=== PATIENT | female | born 1950 | race Caucasian/White ===

== ENCOUNTER → 2017-12-17 10:34 | Outpatient (CLI) | payer MEDICARE, OTHER, SELFPAY ==
[2017-12-17 11:58] LABS: BUN Creatinine Ratio 24.4 (6-22); Blood Urea Nitrogen 22 mg/dL (7-17); Calcium 9.7 mg/dL (8.4-10.2); Carbon Dioxide 30 mmol/L (22-32); Chloride 101 mmol/L (98-107); Cholesterol 224 mg/dL (140-199); Estimated Glomerular Filt Rate > 60.0 mL/min (>60); Glucose 90 mg/dL (80-110); HDL Cholesterol 64 mg/dL (40-60); HEMOLYSIS < 15 (0-50); LDL Cholesterol Calculated 135 mg/dL (<100); Potassium 4.8 mmol/L (3.4-5.1); Sodium 139 mmol/L (137-145); Triglycerides 123 mg/dL (35-150)
== END ==
PROVIDERS: PCP Internal Medicine; Visit Provider Internal Medicine
DX: Z00.00 Encounter for general adult medical examination without abnormal findings (principal); I10 Essential (primary) hypertension
CPT/HCPCS: 36415; 80048; 80061

== ENCOUNTER → 2018-05-27 12:16 | Outpatient (CLI) | payer MEDICARE, OTHER, SELFPAY ==
--- NOTE | 2018-05-27 | DI.MG.S_ITS ---
BILATERAL DIGITAL SCREENING MAMMOGRAM 3D/2D WITH CAD: 05/27/2018 CLINICAL: Routine screening. Comparison is made to exams dated: 03/02/2017 mammogram, 06/14/2015 mammogram - [facility], and 04/30/2014 mammogram - [facility]. The tissue of both breasts is heterogeneously dense. This may lower the sensitivity of mammography. Current study was also evaluated with a Computer Aided Detection (CAD) system. No significant masses, calcifications, or other findings are seen in either breast. There has been no significant interval change. IMPRESSION: NEGATIVE There is no mammographic evidence of malignancy. A 1 year screening mammogram is recommended. This exam was interpreted at Station ID: [id number]. NOTE: For mammograms, a report in lay terms will be sent to the patient. Approximately 15% of breast malignancies will not be visualized mammographically. In the management of a palpable breast mass, a negative mammogram must not discourage biopsy of a clinically suspicious lesion. Electronically Signed By: Mc gunderson/diamond:05/27/2018 18:28:51 letter sent: Normal Exam ACR BI-RADS Category 1: Negative [id number]
== END ==
PROVIDERS: PCP Family Medicine; Visit Provider Family Medicine
DX: Z12.31 Encounter for screening mammogram for malignant neoplasm of breast (principal)
CPT/HCPCS: 77063; 77067

== ENCOUNTER → 2018-12-20 15:29 | Outpatient (CLI) | payer MEDICARE, OTHER, SELFPAY ==
[2018-12-20 16:17] LABS: Add Manual Diff / Slide Review NO; Basophils Absolute Auto 100 /uL (0-100); Basophils Percent Auto 1.3 % (0-2); Eosinophils Absolute Auto 100 /uL (0-450); Eosinophils Percent Auto 2.7 % (2-4); Hematocrit 39.3 % (36-46); Lymphocytes Absolute Auto 1800 /uL (1100-4500); Lymphocytes Percent Auto 35.1 % (25-40); Mean Corpuscular HGB Conc 33.1 % (30-36); Mean Corpuscular Hemoglobin 29.6 PG (26-34); Mean Corpuscular Volume 89.6 fL (80-100); Monocytes Absolute Auto 300 /uL (0-900); Monocytes Percent Auto 6.4 % (3-14); Neutrophils Absolute Auto 2800 /uL (1500-7000); Neutrophils Percent Auto 54.5 % (50-75); Platelet Count 213 X10^3/uL (150-400); Red Blood Cell Count 4.39 X10^6/uL (4.0-5.2); Red Cell Distribution Width 14.1 % (11.6-14.8); White Blood Cell Count 5.2 X10^3/uL (4.5-11.0)
[2018-12-20 16:32] LABS: Erythrocyte Sedimentation Rate 7 MM/HR (0-20)
[2018-12-20 16:33] LABS: Alanine Aminotransferase 24 IU/L (9-52); Albumin 4.7 g/dL (3.5-5.0); Albumin Globulin Ratio 1.6 (1.0-2.8); Alkaline Phosphatase 77 U/L (38-126); Aspartate Aminotransferase 27 IU/L (14-36); BUN Creatinine Ratio 22.2 (6-22); Bilirubin Total 0.7 mg/dL (0.2-1.3); Blood Urea Nitrogen 20 mg/dL (7-17); Carbon Dioxide 26 mmol/L (22-32); Chloride 104 mmol/L (98-107); Estimated Glomerular Filt Rate > 60.0 mL/min (>60); Globulin 2.9 g/dL (1.7-4.1); Glucose 96 mg/dL (80-110); HEMOLYSIS < 15 (0-50); Potassium 4.5 mmol/L (3.4-5.1); Sodium 141 mmol/L (137-145); Total Protein 7.6 g/dL (6.3-8.2); Uric Acid 3.7 mg/dL (2.5-6.2)
[2018-12-20 16:34] LABS: C-Reactive Protein Quant < 0.5 mg/dL (<1.0)
[2018-12-20 16:35] LABS: Rheumatoid Factor < 8.6 IU/mL (<12.0)
[2018-12-20 17:01] LABS: Thyroid Stimulating Hormone 3.08 uIU/mL (0.47-4.68)
[2018-12-22 14:40] LABS: Angiotensin Converting Enzyme 31 U/L (9-67)
[2018-12-22 19:17] LABS: ANA Screen, IFA Positive (Negative); ANA Titer 1:40 titer (<1:40)
[2018-12-23 11:52] LABS: HLA B27 NEGATIVE (Negative)
== END ==
PROVIDERS: Family Provider Family Medicine; PCP Family Medicine; Visit Provider Ophthalmology
DX: M35.00 Sjogren syndrome, unspecified (principal); M45.0 Ankylosing spondylitis of multiple sites in spine
CPT/HCPCS: 36415; 80053; 82164; 84443; 84550; 85025; 85651; 86038; 86140; 86235; 86430; 86812

== ENCOUNTER 2019-02-01 10:28 | Emergency (ER) | payer MEDICARE, OTHER, SELFPAY ==
[2019-02-01 10:30] VITALS: BP 161/71; PULSE 81; RESP 22; TEMP 37.3; O2SAT 100
--- NOTE | 2019-02-01 10:45 | DI.RAD.S_ITS ---
PROCEDURE: XR CHEST 1V INDICATIONS: chest pain TECHNIQUE: One view of the chest was acquired. COMPARISON: None. FINDINGS: Surgical changes and devices: None. Lungs and pleura: Infiltrate in the left lower lung zone. There is a calcified density in the left lung base, most likely an old calcified granuloma. No pleural effusions or pneumothorax. Mediastinum: Mediastinal contours appear normal. Heart size is normal. Bones and chest wall: No suspicious bony lesions. Overlying soft tissues appear unremarkable. IMPRESSION: Infiltrate in the left lower lung zone suspicious for pneumonia. Dictated by: Freddy Barron M.D. on 02/01/2019 at 11:13 Approved by: Freddy Barron M.D. on 02/01/2019 at 11:15
[2019-02-01 11:09] LABS: Add Manual Diff / Slide Review NO; Basophils Absolute Auto 0 /uL (0-100); Basophils Percent Auto 0.6 % (0-2); Eosinophils Absolute Auto 0 /uL (0-450); Eosinophils Percent Auto 0.2 % (2-4); Hemoglobin 12.8 g/dL (12.0-16.0); Lymphocytes Absolute Auto 1100 /uL (1100-4500); Lymphocytes Percent Auto 14.2 % (25-40); Mean Corpuscular HGB Conc 33.7 % (30-36); Mean Corpuscular Hemoglobin 29.7 PG (26-34); Mean Corpuscular Volume 88.3 fL (80-100); Monocytes Absolute Auto 800 /uL (0-900); Monocytes Percent Auto 9.5 % (3-14); Neutrophils Absolute Auto 6100 /uL (1500-7000); Neutrophils Percent Auto 75.5 % (50-75); Platelet Count 196 X10^3/uL (150-400); Red Cell Distribution Width 13.4 % (11.6-14.8); White Blood Cell Count 8.1 X10^3/uL (4.5-11.0)
[2019-02-01 11:16] VITALS: BP 136/66; PULSE 70; RESP 18; O2SAT 100
[2019-02-01 11:20] LABS: Creatine Kinase 56 U/L (30-135); Lactate (Lactic Acid) 0.7 mmol/L (0.7-2.1)
[2019-02-01 11:26] LABS: Influenza A and B by PCR Rapid Negative (Negative)
--- NOTE | 2019-02-01 11:28 | ED.CHESTPAIN ---
HPI - Chest Pain <LISSETT Calderon - Last Filed: 02/01/19 18:25> General Chief Complaint: Chest Pain Stated Complaint: chest pains yesturday slight fever Time Seen by Provider: 02/01/19 10:34 Source: patient and family Mode of arrival: ambulatory Limitations: no limitations History of Present Illness HPI narrative: 68-year-old female nonsmoker who presents with her for chief complaint of chest pain and fever since yesterday morning. She woke up at 8:00 a.m. yesterday with substernal nonradiating chest pain. She states it is worse when she takes a deep breath, worse when she is lying on her back. She states that she feels short of breath because it is too painful to take deep breaths. She states the pain is non radiating. She also complains of fever to 101, muscle aches, chills fatigue general malaise. She denies any cough. She denies any swelling of her extremities, increasing palpitations, syncope. She denies any recent immobility or surgery. She denies any history of blood clots. She states she has a history of an appendectomy, dry eyes. Denies any cardiac travel history. Related Data Home Medications Medication Instructions Recorded Confirmed bromfenac 0.07 % eye drops 1 drp OPHTHALMIC (EYE) BID ml 05/04/18 02/01/19 lifitegrast 5 % eye drops in a 1 drp OPHTHALMIC (EYE) DAILY each 05/04/18 02/01/19 dropperette Previous Rx's Medication Instructions Recorded meloxicam 7.5 mg tablet 15 mg PO DAILY #180 tab 09/07/18 levofloxacin [Levaquin] 750 mg PO DAILY #6 tab 02/01/19 Allergies Allergy/AdvReac Type Severity Reaction Status Date / Time codeine [CODEINE] Allergy Unknown hives Verified 02/01/19 15:22 Review of Systems <LISSETT Calderon - Last Filed: 02/01/19 18:25> Constitutional Constitutional: Reports as per HPI, Denies frequent falls and Reports headache(s) Eyes Eyes: Reports system reviewed and no additional complaints, except as docu ENT Ears, Nose, Mouth, and Throat: Reports system reviewed and no additional complaints, except as docu, Reports headache(s), Denies mouth pain, Denies nose pain and Denies sore throat Cardiovascular Cardiovascular: Reports as per HPI and Denies syncope Respiratory Respiratory: Reports as per HPI Gastrointestinal Gastrointestinal: Denies abdominal pain, Denies diarrhea, Denies nausea and Denies vomiting Genitourinary Genitourinary: Reports system reviewed and no additional complaints, except as docu Musculoskeletal Musculoskeletal: Denies abnormal gait and Reports myalgias Integumentary/Breasts Skin/Breast: Reports system reviewed and no additional complaints, except as docu Neurologic Neurologic: Denies abnormal movements, Denies abnormal speech, Denies abnormal gait, Denies syncope, Denies frequent falls, Reports headache(s) and Denies lack of coordination Psychiatric Psychiatric: Reports system reviewed and no additional complaints, except as docu Endocrine Endocrine: Reports system reviewed and no additional complaints, except as docu Allergic/Immunologic Allergic/Immunologic: Reports system reviewed and no additional complaints, except as docu PFSH <LISSETT Calderon - Last Filed: 02/01/19 18:25> Medical History Eczema (Chronic) Osteoarthritis (Chronic) Family History Mother Congestive heart failure Diabetes mellitus COPD (chronic obstructive pulmonary disease) Cancer Father Diabetes mellitus Cancer Sister Diabetes mellitus Social History marital status: household members: spouse lives independently: Yes caregiver/support person: No housing: house occupational status: previously employed Smoking Status: Never smoker second hand exposure: No alcohol intake: current substance use type: does not use Family History Mother Congestive heart failure Diabetes mellitus COPD (chronic obstructive pulmonary disease) Cancer Father Diabetes mellitus Cancer Sister Diabetes mellitus Social History marital status: household members: spouse lives independently: Yes caregiver/support person: No housing: house occupational status: previously employed Smoking Status: Never smoker second hand exposure: No alcohol intake: current substance use type: does not use Exam <LISSETT Calderon - Last Filed: 02/01/19 18:25> Narrative Exam Narrative: GENERAL: Thin female no acute distress HEAD: Atraumatic. Normocephalic. No temporal or scalp tenderness. EYES: Pupils equal round and reactive. Extraocular motions intact. No scleral icterus. No injection or drainage. ENT: Nose without bleeding, purulent drainage or septal hematoma. Throat without erythema, tonsillar hypertrophy or exudate. Uvula midline. Airway patent. NECK: Trachea midline. No JVD or lymphadenopathy. Supple, nontender, no meningeal signs. CARDIOVASCULAR: Regular rate and rhythm without murmurs, gallops, or rubs. RESPIRATORY: Clear to auscultation. Breath sounds equal bilaterally. No wheezes, rales, or rhonchi. No cough. No increased respiratory effort. GASTROINTESTINAL: Abdomen soft, non-tender, nondistended. No hepato-splenomegaly, or palpable masses. No guarding. Active bowel sounds all 4 quadrants. EXTREMITIES: No clubbing, cyanosis, or edema. No joint tenderness, effusion, or edema noted. BACK: Nontender without deformity or crepitance. No flank tenderness. NEURO: AOx3. SKIN: No rash or erythema. Initial Vital Signs Initial Vital Signs: Vital Signs Temperature 99.1 F 02/01/19 10:30 Pulse Rate 81 02/01/19 10:30 Respiratory Rate 22 02/01/19 10:30 Blood Pressure 161/71 H 02/01/19 10:30 Pulse Oximetry 100 02/01/19 10:30 <Rajeev Crawford DO - Last Filed: 02/01/19 21:58> Initial Vital Signs Initial Vital Signs: Vital Signs Temperature 99.1 F 02/01/19 10:30 Pulse Rate 81 02/01/19 10:30 Respiratory Rate 22 02/01/19 10:30 Blood Pressure 161/71 H 02/01/19 10:30 Pulse Oximetry 100 02/01/19 10:30 Scores <LISSETT Calderon - Last Filed: 02/01/19 18:25> CURB-65 Confusion: No BUN >19mg/dL (>7mmol/L): No Respiratory rate greater or equal to 30: No SBP <90mmHg or DBP less or equal to 60mmHg: No Age 65 or Older: Yes CURB-65 Total: 1 Score 0-1 Outpatient care, Score 2 Inpt vs. Obs, Score 3 or over Inpt admit with ICU for score of 4-5 HEART Score Heart Score history: Slightly Suspicious Heart Score EKG: Normal Heart Score Age: > or = 65 years old Heart Score risk factors: No known risk factors Heart Score troponin: < or = to normal limit Heart Score Total: 2 Course <LISSETT Calderon - Last Filed: 02/01/19 18:25> Orders Ordered: ED Orders 02/01/19 14:10 Troponin & CK Cardiac Panel Stat Discontinued Medications Levofloxacin (Levaquin) 750 mg PO NOW ONE Stop: 02/01/19 15:12 Last Admin: 02/01/19 15:23 Dose: 750 mg Documented by: CLAUDINE Vital Signs Vital signs: Vital Signs - 8 hr 02/01/19 15:05 Pulse Rate 67 Respiratory Rate 18 Blood Pressure [Right Arm] 127/53 L Pulse Oximetry 97 <Rajeev Crawford DO - Last Filed: 02/01/19 21:58> Orders Ordered: ED Orders 02/01/19 14:10 Troponin & CK Cardiac Panel Stat Discontinued Medications Levofloxacin (Levaquin) 750 mg PO NOW ONE Stop: 02/01/19 15:12 Last Admin: 02/01/19 15:23 Dose: 750 mg Documented by: CLAUDINE Vital Signs Vital signs: Vital Signs - 8 hr 02/01/19 15:05 Pulse Rate 67 Respiratory Rate 18 Blood Pressure [Right Arm] 127/53 L Pulse Oximetry 97 MDM - Chest Pain <LISSETT Calderon - Last Filed: 02/01/19 18:25> Lab Data Result diagrams: 02/01/19 10:59 02/01/19 10:59 Labs: Lab Results 02/01/19 02/01/19 02/01/19 Range/Units 10:48 10:59 10:59 WBC 8.1 (4.5-11.0) X10^3/uL RBC 4.30 (4.0-5.2) X10^6/uL Hgb 12.8 (12.0-16.0) g/dL Hct 38.0 (36-46) % MCV 88.3 (80-100) fL MCH 29.7 (26-34) PG MCHC 33.7 (30-36) % RDW 13.4 (11.6-14.8) % Plt Count 196 (150-400) X10^3/uL Neut % (Auto) 75.5 H (50-75) % Lymph % (Auto) 14.2 L (25-40) % [place] % (Auto) 9.5 (3-14) % Eos % (Auto) 0.2 L (2-4) % Baso % (Auto) 0.6 (0-2) % Neut # (Auto) 6100 (9527-1094) /uL Lymph # (Auto) 1100 (9833-0779) /uL [place] # (Auto) 800 (0-900) /uL Eos # (Auto) 0 (0-450) /uL Baso # (Auto) 0 (0-100) /uL Sodium (137-145) mmol/L Potassium (3.4-5.1) mmol/L Chloride (98-107) mmol/L Carbon Dioxide (22-32) mmol/L BUN (7-17) mg/dL Creatinine (0.52-1.04) mg/dL Estimated GFR (>60) mL/min BUN/Creatinine Ratio (6-22) Glucose (80-110) mg/dL Lactate (0.7-2.1) mmol/L Calcium (8.4-10.2) mg/dL Total Creatine Kinase 56 (30-135) U/L CK-MB (CK-2) TNP CK-MB (CK-2) Rel Index TNP Troponin I < 0.012 (0.01-0.034) ng/mL B-Natriuretic Peptide (<100) Urine Color Urine Appearance Urine pH (4.5-8.0) Ur Specific [place] (1.000-1.035) Urine Protein (Negative) Urine Glucose (UA) (Negative) g/dL Urine Ketones (NEGATIVE) Urine Occult Blood (Negative) Urine Nitrate (Negative) Urine Bilirubin (NEGATIVE) Urine Urobilinogen (0.2) E.U./dL Ur Leukocyte Esterase (NEGATIVE) Urine RBC (0-5/HPF) Urine WBC (0-5/HPF) Ur Squamous Epith Cells (0-5/HPF) Urine Bacteria (None) Ur Culture Indicated? Influenza A & B (PCR) Negative (Negative) 09/18/19 09/18/19 09/18/19 Range/Units 10:59 10:59 10:59 WBC (4.5-11.0) X10^3/uL RBC (4.0-5.2) X10^6/uL Hgb (12.0-16.0) g/dL Hct (36-46) % MCV (80-100) fL MCH (26-34) PG MCHC (30-36) % RDW (11.6-14.8) % Plt Count (150-400) X10^3/uL Neut % (Auto) (50-75) % Lymph % (Auto) (25-40) % [place] % (Auto) (3-14) % Eos % (Auto) (2-4) % Baso % (Auto) (0-2) % Neut # (Auto) (2280-3638) /uL Lymph # (Auto) (9697-2196) /uL [place] # (Auto) (0-900) /uL Eos # (Auto) (0-450) /uL Baso # (Auto) (0-100) /uL Sodium 136 L (137-145) mmol/L Potassium 4.1 (3.4-5.1) mmol/L Chloride 103 (98-107) mmol/L Carbon Dioxide 23 (22-32) mmol/L BUN 19 H (7-17) mg/dL Creatinine 0.80 (0.52-1.04) mg/dL Estimated GFR > 60.0 (>60) mL/min BUN/Creatinine Ratio 23.8 H (6-22) Glucose 111 H (80-110) mg/dL Lactate 0.7 (0.7-2.1) mmol/L Calcium 10.0 (8.4-10.2) mg/dL Total Creatine Kinase (30-135) U/L CK-MB (CK-2) CK-MB (CK-2) Rel Index Troponin I (0.01-0.034) ng/mL B-Natriuretic Peptide 180 H (<100) Urine Color Urine Appearance Urine pH (4.5-8.0) Ur Specific [place] (1.000-1.035) Urine Protein (Negative) Urine Glucose (UA) (Negative) g/dL Urine Ketones (NEGATIVE) Urine Occult Blood (Negative) Urine Nitrate (Negative) Urine Bilirubin (NEGATIVE) Urine Urobilinogen (0.2) E.U./dL Ur Leukocyte Esterase (NEGATIVE) Urine RBC (0-5/HPF) Urine WBC (0-5/HPF) Ur Squamous Epith Cells (0-5/HPF) Urine Bacteria (None) Ur Culture Indicated? Influenza A & B (PCR) (Negative) 02/01/19 02/01/19 Range/Units 12:15 14:10 WBC (4.5-11.0) X10^3/uL RBC (4.0-5.2) X10^6/uL Hgb (12.0-16.0) g/dL Hct (36-46) % MCV (80-100) fL MCH (26-34) PG MCHC (30-36) % RDW (11.6-14.8) % Plt Count (150-400) X10^3/uL Neut % (Auto) (50-75) % Lymph % (Auto) (25-40) % [place] % (Auto) (3-14) % Eos % (Auto) (2-4) % Baso % (Auto) (0-2) % Neut # (Auto) (8697-5084) /uL Lymph # (Auto) (0620-9046) /uL [place] # (Auto) (0-900) /uL Eos # (Auto) (0-450) /uL Baso # (Auto) (0-100) /uL Sodium (137-145) mmol/L Potassium (3.4-5.1) mmol/L Chloride (98-107) mmol/L Carbon Dioxide (22-32) mmol/L BUN (7-17) mg/dL Creatinine (0.52-1.04) mg/dL Estimated GFR (>60) mL/min BUN/Creatinine Ratio (6-22) Glucose (80-110) mg/dL Lactate (0.7-2.1) mmol/L Calcium (8.4-10.2) mg/dL Total Creatine Kinase 46 (30-135) U/L CK-MB (CK-2) TNP CK-MB (CK-2) Rel Index TNP Troponin I < 0.012 (0.01-0.034) ng/mL B-Natriuretic Peptide (<100) Urine Color Yellow Urine Appearance Clear Urine pH 6.0 (4.5-8.0) Ur Specific [place] <=1.005 (1.000-1.035) Urine Protein Negative (Negative) Urine Glucose (UA) Negative (Negative) g/dL Urine Ketones Negative (NEGATIVE) Urine Occult Blood Negative (Negative) Urine Nitrate Negative (Negative) Urine Bilirubin Negative (NEGATIVE) Urine Urobilinogen 0.2 (0.2) E.U./dL Ur Leukocyte Esterase Negative (NEGATIVE) Urine RBC None seen (0-5/HPF) Urine WBC None seen (0-5/HPF) Ur Squamous Epith Cells 0-1 /hpf (0-5/HPF) Urine Bacteria None seen (None) Ur Culture Indicated? Cult not indicated Influenza A & B (PCR) (Negative) Imaging Data Chest x-ray: Radiologist's impression: Farnaz Hancock 68 F [address] [address] XRay Report Signed Patient: Farnaz Hancock EMR#: [id number] : 1950cct:[id number] Age/Sex: 68 / FDate of Service: 02/01/19 Loc: ED Accession Number: [id number] Procedure: XR chest 1V Ordering Provider: Rajeev Crawford D.O. PROCEDURE: XR CHEST 1V INDICATIONS: chest pain TECHNIQUE: One view of the chest was acquired. COMPARISON: None. FINDINGS: Surgical changes and devices: None. Lungs and pleura: Infiltrate in the left lower lung zone. There is a calcified density in the left lung base, most likely an old calcified granuloma. No pleural effusions or pneumothorax. Mediastinum: Mediastinal contours appear normal. Heart size is normal. Bones and chest wall: No suspicious bony lesions. Overlying soft tissues appear unremarkable. IMPRESSION: Infiltrate in the left lower lung zone suspicious for pneumonia. Dictated by: Freddy Barron M.D. on 02/01/2019 at 11:13 Approved by: Freddy Barron M.D. on 02/01/2019 at 11:15 ECG Data Attestation: I personally reviewed and interpreted this ECG as follows: Interpretation: Sinus rhythm. Ventricular rate 79. No ectopy noted. No ST elevation or depression noted. LA interval 112. QRS duration 102 MDM Narrative Medical decision making narrative: The patient is a 68-year-old female presents with a chief complaint of chest pain with shortness of breath. She states that her chest pain is when she takes a deep breath, and is positional. She has a heart score of 2. She has a normal EKG . She has 2-cardiac enzymes. She has no leukocytosis, was found to have left lower lobe pneumonia on chest x-ray. She states that she has an allergy to tetracyclines. I will initiate treatment with Levaquin, which she has tolerated well in the past. I discussed risk of tendon injury with Levaquin. The patient has no leukocytosis, normal renal function. She was given incentive spirometer teaching. I encouraged strict follow-up with PCP. Discussed coming back to the ER for any acute concerns such as significant shortness of breath etc. Patient has no questions or concerns upon discharge is discharged home to . <Rajeev Crawford DO - Last Filed: 02/01/19 21:58> Lab Data Labs: Lab Results 02/01/19 02/01/19 02/01/19 Range/Units 10:48 10:59 10:59 WBC 8.1 (4.5-11.0) X10^3/uL RBC 4.30 (4.0-5.2) X10^6/uL Hgb 12.8 (12.0-16.0) g/dL Hct 38.0 (36-46) % MCV 88.3 (80-100) fL MCH 29.7 (26-34) PG MCHC 33.7 (30-36) % RDW 13.4 (11.6-14.8) % Plt Count 196 (150-400) X10^3/uL Neut % (Auto) 75.5 H (50-75) % Lymph % (Auto) 14.2 L (25-40) % [place] % (Auto) 9.5 (3-14) % Eos % (Auto) 0.2 L (2-4) % Baso % (Auto) 0.6 (0-2) % Neut # (Auto) 6100 (8793-2838) /uL Lymph # (Auto) 1100 (7516-5793) /uL [place] # (Auto) 800 (0-900) /uL Eos # (Auto) 0 (0-450) /uL Baso # (Auto) 0 (0-100) /uL Sodium (137-145) mmol/L Potassium (3.4-5.1) mmol/L Chloride (98-107) mmol/L Carbon Dioxide (22-32) mmol/L BUN (7-17) mg/dL Creatinine (0.52-1.04) mg/dL Estimated GFR (>60) mL/min BUN/Creatinine Ratio (6-22) Glucose (80-110) mg/dL Lactate (0.7-2.1) mmol/L Calcium (8.4-10.2) mg/dL Total Creatine Kinase 56 (30-135) U/L CK-MB (CK-2) TNP CK-MB (CK-2) Rel Index TNP Troponin I < 0.012 (0.01-0.034) ng/mL B-Natriuretic Peptide (<100) Urine Color Urine Appearance Urine pH (4.5-8.0) Ur Specific [place] (1.000-1.035) Urine Protein (Negative) Urine Glucose (UA) (Negative) g/dL Urine Ketones (NEGATIVE) Urine Occult Blood (Negative) Urine Nitrate (Negative) Urine Bilirubin (NEGATIVE) Urine Urobilinogen (0.2) E.U./dL Ur Leukocyte Esterase (NEGATIVE) Urine RBC (0-5/HPF) Urine WBC (0-5/HPF) Ur Squamous Epith Cells (0-5/HPF) Urine Bacteria (None) Ur Culture Indicated? Influenza A & B (PCR) Negative (Negative) 02/01/19 02/01/19 02/01/19 Range/Units 10:59 10:59 10:59 WBC (4.5-11.0) X10^3/uL RBC (4.0-5.2) X10^6/uL Hgb (12.0-16.0) g/dL Hct (36-46) % MCV (80-100) fL MCH (26-34) PG MCHC (30-36) % RDW (11.6-14.8) % Plt Count (150-400) X10^3/uL Neut % (Auto) (50-75) % Lymph % (Auto) (25-40) % [place] % (Auto) (3-14) % Eos % (Auto) (2-4) % Baso % (Auto) (0-2) % Neut # (Auto) (1017-2176) /uL Lymph # (Auto) (5699-3588) /uL [place] # (Auto) (0-900) /uL Eos # (Auto) (0-450) /uL Baso # (Auto) (0-100) /uL Sodium 136 L (137-145) mmol/L Potassium 4.1 (3.4-5.1) mmol/L Chloride 103 (98-107) mmol/L Carbon Dioxide 23 (22-32) mmol/L BUN 19 H (7-17) mg/dL Creatinine 0.80 (0.52-1.04) mg/dL Estimated GFR > 60.0 (>60) mL/min BUN/Creatinine Ratio 23.8 H (6-22) Glucose 111 H (80-110) mg/dL Lactate 0.7 (0.7-2.1) mmol/L Calcium 10.0 (8.4-10.2) mg/dL Total Creatine Kinase (30-135) U/L CK-MB (CK-2) CK-MB (CK-2) Rel Index Troponin I (0.01-0.034) ng/mL B-Natriuretic Peptide 180 H (<100) Urine Color Urine Appearance Urine pH (4.5-8.0) Ur Specific [place] (1.000-1.035) Urine Protein (Negative) Urine Glucose (UA) (Negative) g/dL Urine Ketones (NEGATIVE) Urine Occult Blood (Negative) Urine Nitrate (Negative) Urine Bilirubin (NEGATIVE) Urine Urobilinogen (0.2) E.U./dL Ur Leukocyte Esterase (NEGATIVE) Urine RBC (0-5/HPF) Urine WBC (0-5/HPF) Ur Squamous Epith Cells (0-5/HPF) Urine Bacteria (None) Ur Culture Indicated? Influenza A & B (PCR) (Negative) 02/01/19 02/01/19 Range/Units 12:15 14:10 WBC (4.5-11.0) X10^3/uL RBC (4.0-5.2) X10^6/uL Hgb (12.0-16.0) g/dL Hct (36-46) % MCV (80-100) fL MCH (26-34) PG MCHC (30-36) % RDW (11.6-14.8) % Plt Count (150-400) X10^3/uL Neut % (Auto) (50-75) % Lymph % (Auto) (25-40) % [place] % (Auto) (3-14) % Eos % (Auto) (2-4) % Baso % (Auto) (0-2) % Neut # (Auto) (2103-3117) /uL Lymph # (Auto) (6258-3041) /uL [place] # (Auto) (0-900) /uL Eos # (Auto) (0-450) /uL Baso # (Auto) (0-100) /uL Sodium (137-145) mmol/L Potassium (3.4-5.1) mmol/L Chloride (98-107) mmol/L Carbon Dioxide (22-32) mmol/L BUN (7-17) mg/dL Creatinine (0.52-1.04) mg/dL Estimated GFR (>60) mL/min BUN/Creatinine Ratio (6-22) Glucose (80-110) mg/dL Lactate (0.7-2.1) mmol/L Calcium (8.4-10.2) mg/dL Total Creatine Kinase 46 (30-135) U/L CK-MB (CK-2) TNP CK-MB (CK-2) Rel Index TNP Troponin I < 0.012 (0.01-0.034) ng/mL B-Natriuretic Peptide (<100) Urine Color Yellow Urine Appearance Clear Urine pH 6.0 (4.5-8.0) Ur Specific [place] <=1.005 (1.000-1.035) Urine Protein Negative (Negative) Urine Glucose (UA) Negative (Negative) g/dL Urine Ketones Negative (NEGATIVE) Urine Occult Blood Negative (Negative) Urine Nitrate Negative (Negative) Urine Bilirubin Negative (NEGATIVE) Urine Urobilinogen 0.2 (0.2) E.U./dL Ur Leukocyte Esterase Negative (NEGATIVE) Urine RBC None seen (0-5/HPF) Urine WBC None seen (0-5/HPF) Ur Squamous Epith Cells 0-1 /hpf (0-5/HPF) Urine Bacteria None seen (None) Ur Culture Indicated? Cult not indicated Influenza A & B (PCR) (Negative) Discharge Plan Departure Patient Disposition: Home Clinical Impression: Atypical chest pain Community acquired pneumonia Qualifiers: Laterality: left Lung location: lower lobe of lung Qualified Code(s): J18.1 - Lobar pneumonia, unspecified organism Discharge Date/Time: 02/01/19 15:42 Instructions: How to Use an Incentive Spirometer, DI for Pneumonia -- Adult, DI for Atypical Chest Pain Activity Restrictions/Additional Instructions: Thank you for trusting us with your care today As I discussed, her EKG was normal, your white blood cell count is normal, you have 2 normal sets cardiac enzymes Your x-ray showed pneumonia in your left lower lobe, so we gave you an incentive spirometer and I have started you on antibiotics. Please follow up with PCP in the next few days for re-evaluation. Please come back to the emergency department for any acute concerns such as severe increased shortness of breath etc. Prescriptions: New levofloxacin [Levaquin] 750 mg tablet 750 mg PO DAILY Qty: 6 RF: 0 No Action meloxicam 7.5 mg tablet 15 mg PO DAILY Qty: 180 RF: 0 bromfenac [Prolensa] 0.07 % drops 1 drp ophthalmic (eye) BID RF: 0 lifitegrast [Xiidra] 5 % dropperette 1 drp ophthalmic (eye) DAILY RF: 0 Referrals: Heidi Mckeon MD [Primary Care Provider] -
[2019-02-01 11:33] LABS: Troponin I < 0.012 ng/mL (0.01-0.034)
[2019-02-01 11:43] LABS: BUN Creatinine Ratio 23.8 (6-22); Blood Urea Nitrogen 19 mg/dL (7-17); Carbon Dioxide 23 mmol/L (22-32); Chloride 103 mmol/L (98-107); Estimated Glomerular Filt Rate > 60.0 mL/min (>60); Glucose 111 mg/dL (80-110); HEMOLYSIS < 15 (0-50); Potassium 4.1 mmol/L (3.4-5.1); Sodium 136 mmol/L (137-145)
[2019-02-01 12:00] VITALS: BP 135/66; PULSE 73; RESP 18; O2SAT 97
[2019-02-01 12:19] LABS: B Type Natriuretic Peptide 180 (<100)
[2019-02-01 12:24] LABS: Appearance Urine UA CLEAR; Bacteria Urine None Seen; Bilirubin Urine UA NEGATIVE (NEGATIVE); Color Urine UA YELLOW; Glucose Urine UA NEGATIVE (Negative); Ketones Urine UA NEGATIVE (NEGATIVE); Leukocyte Esterase Urine UA NEGATIVE (NEGATIVE); Nitrite Urine UA NEGATIVE (Negative); Occult Blood Urine UA NEGATIVE (Negative); Protein Urine UA NEGATIVE (Negative); RBC Urine None Seen (0-5/HPF); Specific Gravity Urine UA <=1.005 (1.000-1.035); Urobilinogen Urine UA 0.2 E.U./dL (0.2); WBC Urine None Seen (0-5/HPF)
[2019-02-01 12:30] VITALS: BP 139/62; PULSE 66; RESP 18; O2SAT 96
[2019-02-01 12:36] LABS: Culture Indicated Urine Cult Not Indicated; Squamous Epithelial Cell Urine 0-1 /HPF (0-5/HPF)
[2019-02-01 14:32] LABS: Creatine Kinase 46 U/L (30-135)
[2019-02-01 14:45] LABS: Troponin I < 0.012 ng/mL (0.01-0.034)
[2019-02-01 15:05] VITALS: BP 127/53; PULSE 67; RESP 18; O2SAT 97
[2019-02-01] MEDS: levoFLOXacin 250 MG TABLET 750 MG PO (15:23)
== END 2019-02-01 15:42 | disposition home or self-care (01) ==
PROVIDERS: Emergency Medicine; Emergency Provider Nurse Practitioner Family; PCP Family Medicine
DX: R07.89 Other chest pain (principal); J18.1 Lobar pneumonia, unspecified organism; R50.9 Fever, unspecified
CPT/HCPCS: 36415; 71045; 80048; 81001; 82550; 83605; 83880; 84484; 85025; 87040; 87400; 87502; 93005; 99283; 99285

== ENCOUNTER → 2019-06-02 14:01 | Outpatient (CLI) | payer MEDICARE, OTHER, SELFPAY ==
--- NOTE | 2019-06-02 | DI.MG.S_ITS ---
BILATERAL DIGITAL SCREENING MAMMOGRAM 3D/2D WITH CAD: 06/02/2019 CLINICAL: Routine screening. Comparison is made to exams dated: 05/27/2018 mammogram, 03/02/2017 mammogram, and 06/14/2015 mammogram - [facility]. The tissue of both breasts is heterogeneously dense. This may lower the sensitivity of mammography. Current study was also evaluated with a Computer Aided Detection (CAD) system. No significant masses, calcifications, or other findings are seen in either breast. There has been no significant interval change. IMPRESSION: NEGATIVE There is no mammographic evidence of malignancy. A 1 year screening mammogram is recommended. This exam was interpreted at Station ID: [id number]. NOTE: For mammograms, a report in lay terms will be sent to the patient. Approximately 15% of breast malignancies will not be visualized mammographically. In the management of a palpable breast mass, a negative mammogram must not discourage biopsy of a clinically suspicious lesion. Electronically Signed By: Davon merida/diamond:06/02/2019 16:25:34 letter sent: Normal Exam ACR BI-RADS Category 1: Negative [id number]
== END ==
PROVIDERS: PCP Family Medicine; Visit Provider Family Medicine
DX: Z12.31 Encounter for screening mammogram for malignant neoplasm of breast (principal)
CPT/HCPCS: 77063; 77067

== ENCOUNTER → 2019-11-03 11:31 | Outpatient (CLI) | payer MEDICARE, OTHER, SELFPAY ==
--- NOTE | 2019-11-03 11:34 | DI.MRI.S_ITS ---
PROCEDURE: MR LUMBAR SPINE WO CON INDICATIONS: hx spondylosis, worsening back pain TECHNIQUE: Noncontrast sagittal T1 spin echo and T2 fast echo, sagittal STIR, axial T1 and T2 fast spin echo through the lumbar spine. In cases with scoliosis, additional coronal T2 fast spin echo may be performed. COMPARISON: [facility], CR, XR LUMBAR SPINE WITH OLBIQUES PLUS FLEXION EXTENSION, 09/05/2018, 14:44. FINDINGS: Image quality: Excellent. Alignment and Curvature: There is grade 1 L1-L2 retrolisthesis. There is trace L2-L3 retrolisthesis. There is grade 1 L3-L4 anterolisthesis. There is grade 2 L4-L5 anterolisthesis. Bone Marrow: Reactive endplate changes no adjacent L1-L2, L2-L3-L3-L4 and L4-L5 discs. No acute vertebral body compression fractures. Spinal Cord: Conus medullaris terminates at the L2 level. Syrinx noted in the visualized thoracic spine extending from T10-T11. Paraspinous Soft Tissues: No paravertebral masses. L1-L2: Loss of disc signal and height. Mild to moderate diffuse disc bulge. Moderate bilateral facet hypertrophy. Mild narrowing of the central canal. Moderate bilateral neural foraminal narrowing. No neural compression. L2-L3: Loss of disc signal and height. Mild, diffuse disc bulge and moderate facet and moderate ligamentum flavum hypertrophy. Mild narrowing of the central canal. Moderate bilateral neural foraminal narrowing. No neural compression. L3-L4: Loss of disc signal and height. Mild, diffuse disc bulge. Severe facet and severe ligamentum flavum hypertrophy. Severe narrowing of the central canal with crowding of the nerve roots of the cauda equina. Severe right and [id number] left neural foraminal narrowing with compression of the exiting right L3 nerve root. L4-L5: Loss of disc signal and height. Mild diffuse disc bulge. Severe facet and mild ligamentum flavum printed. Severe narrowing of the central canal with crowding of the nerve roots of caudal equina. Severe bilateral neural foraminal narrowing with compression of exiting L4 nerve roots. L5-S1: Loss of disc signal. Mild, diffuse disc bulge and mild bilateral facet hypertrophy. No central stenosis. No neural foraminal narrowing. No neural compression. 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 IMPRESSION: 1. Partially visualized syrinx in the lower thoracic spine. Recommend dedicated MRI of the thoracic spine with and without contrast for further characterization. 2. Multilevel degenerative disease. 3. Multilevel facet arthropathy. 4. Grade 2 L4-L5 degenerative spondylolisthesis. Grade 1 L1-L2 and L3-L4 degenerative spondylolisthesis. 5. Severe L3-L4 and L4-L5 central canal narrowing with crowding of the nerve roots of cauda equina. 6. Severe right L3-L4 neural foraminal narrowing with compression of the exiting right L3 nerve root. Severe bilateral L4-L5 neural foraminal narrowing with compression of the exiting bilateral L4 nerve roots. Dictated by: Sarahi Morgan MD, PhD on 11/03/2019 at 15:26 Approved by: Sarahi Morgan MD, PhD on 11/03/2019 at 15:56
== END ==
PROVIDERS: PCP Family Medicine; Referring Provider Family Medicine; Visit Provider Family Medicine
DX: Z13.820 Encounter for screening for osteoporosis (principal); Z78.0 Asymptomatic menopausal state; G95.0 Syringomyelia and syringobulbia; M54.9 Dorsalgia, unspecified; M47.816 Spondylosis without myelopathy or radiculopathy, lumbar region; M47.817 Spondylosis without myelopathy or radiculopathy, lumbosacral region; M48.061 Spinal stenosis, lumbar region without neurogenic claudication; M43.16 Spondylolisthesis, lumbar region
CPT/HCPCS: 72148; 77080

== ENCOUNTER → 2019-11-07 08:03 | Outpatient (CLI) | payer MEDICARE, OTHER, SELFPAY ==
[2019-11-07 10:11] LABS: Cholesterol 264 mg/dL (140-199); Glucose 88 mg/dL (80-110); HDL Cholesterol 64 mg/dL (40-60); LDL Cholesterol Calculated 179 mg/dL (<100); Triglycerides 103 mg/dL (35-150)
[2019-11-07 10:17] LABS: C-Reactive Protein Quant < 0.5 mg/dL (<1.0); Rheumatoid Factor < 8.6 IU/mL (<12.0)
[2019-11-07 10:18] LABS: Erythrocyte Sedimentation Rate 5 MM/HR (0-20)
[2019-11-07 10:43] LABS: Thyroid Stimulating Hormone 2.85 uIU/mL (0.47-4.68)
[2019-11-08 17:40] LABS: SS A Ro Sjogrens Antibody < 0.2 AI (0.0-0.9); SS B La Sjogrens Antibody < 0.2 AI (0.0-0.9)
[2019-11-09 20:39] LABS: ANA Screen, IFA Positive (.)
== END ==
PROVIDERS: PCP Family Medicine; Referring Provider Family Medicine; Visit Provider Ophthalmology
DX: Z13.220 Encounter for screening for lipoid disorders (principal); M35.00 Sjogren syndrome, unspecified; Z13.1 Encounter for screening for diabetes mellitus; I10 Essential (primary) hypertension
CPT/HCPCS: 36415; 80061; 82947; 84443; 85651; 86038; 86140; 86235; 86430

== ENCOUNTER → 2019-12-01 15:18 | Outpatient (CLI) | payer MEDICARE, OTHER, SELFPAY ==
--- NOTE | 2019-12-01 | DI.RAD.S_ITS ---
PROCEDURE: XR CERVICAL SPINE 2V OR 3V INDICATIONS: CERVICAL SPONDYLOSIS TECHNIQUE: 3 view(s) of the cervical spine were acquired. COMPARISON: [facility], MR, MR CERVICAL SPINE WO CON, 12/01/2019, 15:46. FINDINGS: Bones: No fractures or dislocations to the C7-T1 level. The lateral masses of C1 appear intact on the odontoid view. No suspicious bony lesions. There is slight reversal of cervical curvature. There is trace anterolisthesis of C3 on C4, trace retrolisthesis of C5 on C6. Severe disc space narrowing is present at C5-6, mild C4-5 and C6-7. Small anterior osteophytes are present. Multilevel uncovertebral hypertrophy is present. Soft tissues: No prevertebral soft tissue swelling. IMPRESSION: Prominent degenerative changes most notable at C5-6 as above. Dictated by: Latanya Gomez M.D. on 12/01/2019 at 16:53 Approved by: Latanya Gomez M.D. on 12/01/2019 at 16:54
--- NOTE | 2019-12-01 15:21 | DI.MRI.S_ITS ---
PROCEDURE: MR THORACIC SPINE WO CON INDICATIONS: Spondylosis without myelopathy or radiculopathy, cervical TECHNIQUE: Noncontrast sagittal T1 spine echo and T2 fast spin echo, sagittal STIR, axial T1 and T2 fast spin echo through the thoracic spine. COMPARISON: None. FINDINGS: Image quality: Excellent. Alignment and Curvature: Accentuated thoracic kyphosis is seen. No focal AP alignment abnormality is seen. Bone Marrow: Marrow is of normal overall signal. No acute vertebral body compression fractures. Spinal Cord: Visualized spinal cord is normal in size and signal. Prominence of the central canal can be seen throughout the mid thoracic spine. Paraspinous Soft Tissues: No paravertebral masses. Several perineural cysts can be seen involving the exit foramina. Miscellaneous: On axial images, central canal and foramina appear widely patent at all scanned levels. IMPRESSION: Prominence of the central canal can be seen. If clinically appropriate, a followup study performed with IV contrast could be considered to evaluate for a potential spinal cord mass. Accentuated thoracic kyphosis is seen. Several perineural cysts can be seen. Dictated by: Gautam Brown M.D. on 12/01/2019 at 17:10 Approved by: Gautam Brown M.D. on 12/01/2019 at 17:12
--- NOTE | 2019-12-01 15:21 | DI.MRI.S_ITS ---
PROCEDURE: MR CERVICAL SPINE WO CON INDICATIONS: Spondylosis without myelopathy or radiculopathy, cervical TECHNIQUE: Noncontrast sagittal T1 spin echo and T2 fast spin echo, sagittal STIR, foraminal oblique sagittal T2 fast spin echo, and axial gradient echo or T2 fast spin echo through the cervical spine. COMPARISON: [facility], CR, XR CERVICAL SPINE 2V OR 3V, 12/01/2019, 15:20. [facility], MR, MR THORACIC SPINE WO CON, 12/01/2019, 16:10. FINDINGS: Image quality: Diagnostic, with note made of motion artifact. Alignment and Curvature: There is mild retrolisthesis seen at the C5-C6 level. There is overall straightening of the normal cervical lordosis. Bone Marrow: Marrow demonstrates normal overall signal. Spinal Cord: Visualized spinal cord has normal size and signal. No cerebellar tonsillar herniation. Paraspinous Soft Tissues: No paravertebral masses. Prevertebral soft tissues are normal in thickness. C2-C3: The disc height is well-preserved. Loss of disc signal is seen at this level. A mild degree of generalized disc osteophyte complex is seen. Mild facet joint hypertrophy is seen. Mild bilateral neural foraminal narrowing is seen. No significant central canal narrowing is seen. C3-C4: The disc height is well-preserved. Loss of disc signal is seen at this level. A mild degree of generalized disc osteophyte complex is seen. There is moderate right-sided and mild left-sided facet hypertrophy seen. There is moderate to severe right-sided and at least moderate left-sided neural foraminal narrowing seen. Moderate central canal narrowing is seen. There is associated mass effect upon the ventral spinal cord. C4-C5: The disc height is well-preserved. Loss of disc signal is seen at this level. Mild to moderate disc osteophyte complex is seen. There is mild right-sided and moderate to severe left-sided neural foraminal narrowing seen. There is moderate to severe left-sided and moderate right-sided neural foraminal narrowing seen. Mild central canal narrowing is seen. C5-C6: Moderate to severe loss of disc height and disc signal are seen. Moderate generalized disc osteophyte complex is seen. Uncovertebral joint hypertrophy is seen at this level. Moderate facet joint hypertrophy is seen. Moderate to severe bilateral neural foraminal narrowing is seen. Moderate to severe central canal narrowing is seen. There is associated mass effect upon the ventral spinal cord. C6-C7: Moderate loss of disc height is seen. Loss of disc signal is seen. Moderate generalized disc osteophyte complex is seen. There is a mild central disc osteophyte protrusion seen. There is moderate to severe left-sided and moderate right-sided neural foraminal narrowing seen. Mild to moderate central canal narrowing is seen. C7-T1: The disc height is well-preserved. Loss of disc signal is seen at this level. A mild degree of generalized disc osteophyte complex is seen. No significant neural foraminal or central canal narrowing can be seen. IMPRESSION: Multiple levels of cervical spine degenerative change are seen, which are most prominent at C5-C6. Dictated by: Gautam Brown M.D. on 12/01/2019 at 16:33 Approved by: Gautam Brown M.D. on 12/01/2019 at 16:38
== END ==
PROVIDERS: PCP Family Medicine; Referring Provider Neurological Surgery; Visit Provider Neurological Surgery
DX: M47.812 Spondylosis without myelopathy or radiculopathy, cervical region (principal); M47.814 Spondylosis without myelopathy or radiculopathy, thoracic region; M40.204 Unspecified kyphosis, thoracic region
CPT/HCPCS: 72040; 72141; 72146

== ENCOUNTER → 2020-03-16 09:06 | Outpatient (CLI) | payer MEDICARE, OTHER, SELFPAY ==
[2020-03-18 02:31] LABS: COVID19 Sendout Not Detected (Not Detect)
== END ==
PROVIDERS: PCP Family Medicine; Visit Provider Nurse Practitioner
DX: Z11.59 Encounter for screening for other viral diseases (principal)
CPT/HCPCS: 87635

== ENCOUNTER → 2020-04-01 13:36 | Outpatient (CLI) | payer MEDICARE, OTHER, SELFPAY ==
--- NOTE | 2020-04-01 | DI.RAD.S_ITS ---
PROCEDURE: XR CERVICAL SPINE 2V OR 3V INDICATIONS: Other spondylosis with radiculopathy, cervical region TECHNIQUE: 3 views of the cervical spine were acquired. COMPARISON: [facility], CR, XR CERVICAL SPINE 2V OR 3V, 12/01/2019, 15:20. FINDINGS: Bones: Postsurgical changes from anterior cervical fixation at the C5-6 level with anterior metallic plate and screws and an intervertebral disc spacer. No acute fractures or dislocations to the C7 level. The lateral masses of C1 appear intact on the odontoid view. No suspicious bony lesions. Soft tissues: Postsurgical prevertebral soft tissue swelling is noted. IMPRESSION: Status post anterior fixation at the C5-6 level with expected postsurgical findings. Dictated by: Ramsey Mcmahon M.D. on 04/01/2020 at 13:59 Approved by: Ramsey Mcmahon M.D. on 04/01/2020 at 14:02
== END ==
PROVIDERS: PCP Family Medicine; Referring Provider Neurological Surgery; Visit Provider Neurological Surgery
DX: M47.22 Other spondylosis with radiculopathy, cervical region (principal); Z98.890 Other specified postprocedural states
CPT/HCPCS: 72040

== ENCOUNTER → 2020-06-15 13:41 | Outpatient (CLI) | payer MEDICARE, OTHER, SELFPAY ==
--- NOTE | 2020-06-15 | DI.RAD.S_ITS ---
PROCEDURE: XR CERVICAL SPINE 2V OR 3V INDICATIONS: M47.22 TECHNIQUE: 3 view(s) of the cervical spine were acquired. COMPARISON: [facility], , XR CERVICAL SPINE 2V OR 3V, 04/01/2020, 12:37. FINDINGS: Bones: No fracture. Postsurgical change related to ACDF C5-C6. Hardware appears intact. Expected alignment. Multilevel degenerative endplate sclerosis and spurring. Diffuse facet arthropathy. Mild narrowing of the C6-C7 disc space. Soft tissues: No prevertebral soft tissue swelling. IMPRESSION: Postsurgical and degenerative changes as above. Dictated by: Reinaldo Issa M.D. on 06/15/2020 at 14:29 Approved by: Reinaldo Issa M.D. on 06/15/2020 at 14:30
--- NOTE | 2020-06-15 | DI.MG.S_ITS ---
BILATERAL DIGITAL SCREENING MAMMOGRAM 3D/2D WITH CAD: 06/15/2020 CLINICAL: Routine screening. Comparison is made to exams dated: 06/02/2019 mammogram, 05/27/2018 mammogram, and 03/02/2017 mammogram - [facility]. The tissue of both breasts is heterogeneously dense. This may lower the sensitivity of mammography. Current study was also evaluated with a Computer Aided Detection (CAD) system. No significant masses, calcifications, or other findings are seen in either breast. There has been no significant interval change. IMPRESSION: NEGATIVE There is no mammographic evidence of malignancy. A 1 year screening mammogram is recommended. This exam was interpreted at Station ID: [id number]. NOTE: For mammograms, a report in lay terms will be sent to the patient. Approximately 15% of breast malignancies will not be visualized mammographically. In the management of a palpable breast mass, a negative mammogram must not discourage biopsy of a clinically suspicious lesion. Electronically Signed By: Ramsey bhatt/diamond:06/17/2020 09:10:31 letter sent: Normal Exam ACR BI-RADS Category 1: Negative [id number]
== END ==
PROVIDERS: PCP Family Medicine; Referring Provider Neurological Surgery; Visit Provider Family Medicine
DX: Z12.31 Encounter for screening mammogram for malignant neoplasm of breast (principal); M47.22 Other spondylosis with radiculopathy, cervical region; Z98.1 Arthrodesis status
CPT/HCPCS: 72040; 77063; 77067

== ENCOUNTER → 2020-08-29 09:47 | Outpatient (CLI) | payer MEDICARE, OTHER, SELFPAY ==
[2020-08-29 11:25] LABS: BUN Creatinine Ratio 30.5 (6-22); Blood Urea Nitrogen 25 mg/dL (7-17); Calcium 9.9 mg/dL (8.4-10.2); Carbon Dioxide 25 mmol/L (22-32); Chloride 107 mmol/L (98-107); Cholesterol 236 mg/dL (140-199); Estimated Glomerular Filt Rate > 60.0 mL/min (>60); Glucose 96 mg/dL (80-110); HDL Cholesterol 63 mg/dL (40-60); HEMOLYSIS < 15 (0-50); LDL Cholesterol Calculated 156 mg/dL (<100); Potassium 4.3 mmol/L (3.4-5.1); Sodium 140 mmol/L (137-145); Triglycerides 86 mg/dL (35-150)
== END ==
PROVIDERS: PCP Family Medicine; Referring Provider Family Medicine; Visit Provider Family Medicine
DX: I10 Essential (primary) hypertension (principal); Z13.220 Encounter for screening for lipoid disorders
CPT/HCPCS: 36415; 80048; 80061

== ENCOUNTER → 2020-09-20 13:13 | Outpatient (CLI) | payer MEDICARE, OTHER, SELFPAY | PROVIDERS: Family Provider Family Medicine; PCP Family Medicine; Referring Provider Neurological Surgery; Visit Provider Family Medicine | DX: Z13.820 Encounter for screening for osteoporosis (principal); Z78.0 Asymptomatic menopausal state; M43.16 Spondylolisthesis, lumbar region; M48.062 Spinal stenosis, lumbar region with neurogenic claudication; Z01.818 Encounter for other preprocedural examination | CPT/HCPCS: 77080 ==

== ENCOUNTER → 2020-09-25 11:33 | Outpatient (CLI) | payer MEDICARE, OTHER, SELFPAY ==
[2020-09-25 12:49] LABS: COVID19 -Nasal RAPID Negative (Negative)
== END ==
PROVIDERS: Family Provider Family Medicine; PCP Family Medicine; Visit Provider Physician Assistant
DX: Z20.822 Contact with and (suspected) exposure to COVID-19
CPT/HCPCS: 87635; C9803

== ENCOUNTER → 2020-10-05 11:18 | Outpatient (CLI) | payer MEDICARE, OTHER, SELFPAY ==
[2020-10-05 12:49] LABS: COVID19 -Nasal RAPID Negative (Negative)
== END ==
PROVIDERS: Family Provider Family Medicine; PCP Family Medicine; Referring Provider Physician Assistant; Visit Provider Physician Assistant
DX: Z01.812 Encounter for preprocedural laboratory examination (principal); Z20.822 Contact with and (suspected) exposure to COVID-19
CPT/HCPCS: 87635; C9803

== ENCOUNTER → 2020-10-18 11:22 | Outpatient (CLI) | payer MEDICARE, OTHER, SELFPAY ==
--- NOTE | 2020-10-18 | DI.RAD.S_ITS ---
PROCEDURE: XR LUMBAR SPINE 1V INDICATIONS: Low back pain TECHNIQUE: 1 view of the lumbar spine were acquired. COMPARISON: [facility], MR, MR LUMBAR SPINE WO CON, 11/03/2019, 12:22. FINDINGS: Bones: 5 [id number] vertebrae are present. Interval posterior lateral day and pedicle screw fixation and interbody prosthesis placement at L4-L5. Unchanged alignment. No radiographic evidence of complications. Soft tissues: Overlying bowel gas pattern is normal. No suspicious soft tissue calcifications. IMPRESSION: Interval fusion at L4-L5. No radiographic evidence of complications. Single lateral view. Dictated by: Aramis Monsivais M.D. on 10/18/2020 at 13:33 Approved by: Aramis Monsivais M.D. on 10/18/2020 at 13:39
== END ==
PROVIDERS: Family Provider Family Medicine; PCP Family Medicine; Referring Provider Neurological Surgery; Visit Provider Neurological Surgery
DX: M54.5 Low back pain (principal)
CPT/HCPCS: 72020

== ENCOUNTER 2020-12-05 11:15 | Outpatient (RCR) | payer MEDICARE, OTHER, SELFPAY ==
--- NOTE | 2020-11-06 12:45 | PT.OIE ---
Current Diagnoses Spondylolisthesis, lumbar region (11/06/20) Spinal stenosis, lumbar region with neurogenic claudication (11/06/20) Past Medical History (Last Reviewed 02/22/19 @ 19:31 by MAZIN King) Eczema Osteoarthritis Visit Care Team Role Provider Type Heidi Mckeon MD Family Provider Physician Primary Care Provider Specialty: Family Practice Address: [address] [place] [address], [place], [address] Email: [email or web address] DO Attending Provider Non-Staff Referring Provider Specialty: Neurology Address: [address] [place] [address], [id number] Email: Physical Therapy Initial Evaluation PT-OP-A Visit Information Start: 11/06/20 12:10 Freq: Status: Active Protocol: Document 11/06/20 12:11 (Rec: 11/06/20 12:44 [email or web address]) Out-Patient Physical Therapy Visit Information Visit Information Visit Type Initial Evaluation Visit Note pt attended session with Visit Start Time 11:15 Visit Stop Time 12:00 Total Visit Minutes 45 Visit Number 06/04 Number of F[employer]ATCH [employer]IXER Visits 0 Evaluation Information Evaluation Date 11/06/20 Precautions Precautions HTN PT-OP-B Current Condition Start: 11/06/20 12:10 Freq: Status: Active Protocol: Document 11/06/20 12:11 (Rec: 11/06/20 12:44 [email or web address]) Current Condition History of Current Condition Onset Date 10/08/20 Current Complaints post lumbar fusion, difficulty in mobility History of Current Condition Farnaz is a 70yo female s/p 4 weeks post lumbar fusion at L4 -L5 level with laminectomy from L3-L5 on 10/08/20 at [facility] by Surgeon Dr. Rodriguez. Pt has been having LBP with B hip pain, LE weakness and reduced sensation to lateral thighs for ~2 years. Her LE strength is coming back but she is currently using FWW for all activity. She c/o she still has LE weakness L>R, pain on L hip during WB activities and reduced sensation to touch at proximal lateral thigh and medial calf area. 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 PMH includes= ACDF at C5-C6. Prior Treatments and Tests ACDF at c5-C6 2019 Current Functional Impairments (Reported) Functional Limitations- ADL's able to complete self dressing , bed mobility supervision from for showering completes all associate professor of counseling. Functional Limitations- Mobility/Gait FWW at all times, mobilizing within the house under supervision use of chair armrest, table support for sit <> stand Personal Factors Other Personal Factors That May Effect HTN Therapy/Recovery previous ACDF C5-C6 pt is very anxious with her rehab progress and movements. PT-OP-C Subjective Start: 11/06/20 12:10 Freq: Status: Active Protocol: Document 11/06/20 12:11 HH (Rec: 11/06/20 12:44 [email or web address]) Patient Questionnaires Oswestry Low Back Index Oswestry Score 56 Oswestry Impairment 40 to 59% Impaired (Score 40- 59) OP-PT Pain Assessment Location L hip Scale Used 4-7 Description Aching,Acute,Pressure, Radiating Pain Aggravating Factors Position,Changing Position,ADL 's,Activity,Exercise,Standing, Walking,Stair Climbing,Bending ,Lifting Pain Alleviating Factors Lying Supine LBP Pain Location Details L4-L5 region Scale Used 4-7 Description Aching,Dull,Pressure Frequency Frequent Pain Aggravating Factors Position,Changing Position, Activity,Exercise,Walking, Stair Climbing,Bending,Lifting Pain Alleviating Factors Lying Supine PT-OP-D Balance Start: 11/06/20 12:10 Freq: Status: Active Protocol: Document 11/06/20 12:11 HH (Rec: 11/06/20 12:44 [email or web address]) Balance Tests Single Limb Standing Single Limb- Right 10s,20s. better stability, arms extended Single Limb- Left 8s, 10s. trendelenburg sign, arms extended, excessive movements. PT-OP-E Functional Tests Start: 11/06/20 12:10 Freq: Status: Active Protocol: Document 11/06/20 12:11 HH (Rec: 11/06/20 12:44 [email or web address]) Functional Tests 30 Second Sit to Stand Test Score 10 times, UE on table for push off and stability Comments neutral spine, hip hinge and squat pattern noted, WB mostly on RLE, PT-OP-F Manual Assessment Start: 11/06/20 12:10 Freq: Status: Active Protocol: Document 11/06/20 12:11 HH (Rec: 11/06/20 12:44 [email or web address]) Manual Assessments Soft Tissue Assessment Soft Tissue Mobility Assessment significant hypertonicty at piriformis, SIJ, glute med L>R mild tonicity at B QL L>R PT-OP-G Mobility & Gait Start: 11/06/20 12:10 Freq: Status: Active Protocol: Document 11/06/20 12:11 HH (Rec: 11/06/20 12:44 [email or web address]) OP Mobility Evaluation Bed Mobility Rolling log roll slowly Supine to and from Sit log roll first then SL to sit Transfers Sit to Stand pt uses UE support on table to stand up with neutral spine. OP Gait Assessment Assistive Devices Assistive Device Front Wheeled Walker Gait Deviations General Gait Pattern Antalgic,Decreased Stride Length,Decreased Feet Clearance,Lateral Trunk Lean Factors Limiting Gait Function Factors Limiting Gait Function Decreased Activity Tolerance, Decreased Sensation,Decreased Strength,Limited Range of Motion,Pain,Poor Balance Comments Gait Comments pt amb with a FWW, increased WB on RLE. PT-OP-H Neuro Start: 11/06/20 12:10 Freq: Status: Active Protocol: Document 11/06/20 12:11 HH (Rec: 11/06/20 12:44 [email or web address]) Sensation Evaluation Gross Sensation Gross Sensation Left LE Impaired Sensation Description Paresthesia,Numbness Dermatome Impairments L4 Comments Summary Comments reduced sensation to light tought at L proximal lateral thigh and R medial calf. WFL for pinpick and pressure Deep Tendon Reflex & Clonus Assessment Deep Tendon Reflex Bilateral Achilles Deep Tendon Reflex 2+ Normal Bilateral Patellar Deep Tendon Reflex 2+ Normal PT-OP-K Range of Motion Start: 11/06/20 12:10 Freq: Status: Active Protocol: Document 11/06/20 12:11 HH (Rec: 11/06/20 12:44 [email or web address]) Hip Goniometric Range of Motion Hip Right Active Straight Leg Raise 95 Comments discomfort at low back while lowering her LE from SLR position Left Active Hip ROM WFL Yes Straight Leg Raise 95 Comments discomfort at low back while lowering her LE from SLR position PT-OP-M Strength Start: 11/06/20 12:10 Freq: Status: Active Protocol: Document 11/06/20 12:11 HH (Rec: 11/06/20 12:44 [email or web address]) Hip Strength Hip Manual Muscle Testing Right Flexion (L2) 4 Good Extension (S1) 4 Good Abduction 4 Good Adduction 4 Good Comments discomfort at low back while lowering her LE from SLR position Left Flexion (L2) 4- Good- Extension (S1) 4- Good- Abduction 3 Fair Adduction 4- Good- Comments pain with hip abd discomfort at low back while lowering her LE from SLR position Knee Strength Knee Manual Muscle Testing Right Flexion (S2) 4+ Good+ Extension (L3) 4+ Good+ Left Flexion (S2) 4+ Good+ Extension (L3) 4+ Good+ Ankle/Foot Strength Ankle and Foot Manual Muscle Testing Right Dorsiflexion (L4) 4+ Good+ Plantarflexion (S1) 4+ Good+ Inversion 4+ Good+ Eversion (S1) 4+ Good+ Left Dorsiflexion (L4) 4+ Good+ Plantarflexion (S1) 4+ Good+ Inversion 4+ Good+ Eversion (S1) 4- Good- Comments pain at L hip and cocontraction with L hip abduction during ankle eversion Toe Strength Toe Manual Muscle Testing Right Great Toe Flexion 4+ Good+ Extension 4+ Good+ Left Great Toe Flexion 4+ Good+ Extension 4+ Good+ PT-OP-Q Treatments Start: 11/06/20 12:10 Freq: Status: Active Protocol: Document 11/06/20 12:11 (Rec: 11/06/20 12:45 [email or web address]) Self-Care/Home Management Treatment Education Patient Education Body Mechanics,Joint Protection,Safety Other Education adjusted pt's walker to appropriate height (handles at wrist level) PT-OP-T Assessment and Plan Start: 11/06/20 12:10 Freq: Status: Active Protocol: Document 11/06/20 12:11 (Rec: 11/06/20 12:44 [email or web address]) Physical Therapy Assessment Rehab Potential Rehabilitation Potential Good Evaluation Complexity Number of Personal Factors/Comorbidities 1-2 Number of Body Systems Impaired 1-2 Clinical Presentation at Evaluation Stable Impairments Impairments Activity Tolerance,Balance, Functional Activities, Functional Mobility,Gait,Pain, Posture,ROM,Sensation,Soft Tissue Mobility,Strength, Transfers Goals activity tolerance. Impairment pt needs supervision from for ADLs, assistance for associate professor of counseling Short Term Goal (STG) pt will be able to complete all ADLs (toileting, showering , bed mobility, etc) indepedently without supervision/ assistance. STG Duration 4 weeks Plaster Whittler Goal (LTG) pt will be able to complete all some associate professor of counseling such as dish washing, laundry cleaning etc with safe body mechanics. LTG Duration 8 weeks gait Impairment pt uses FWW for all mobility Short Term Goal (STG) pt will show improved stability and LE strength which allows her to mobilize with SPC/ less at home safely STG Duration 4 weeks Plaster Whittler Goal (LTG) pt will show improved stability and LE strength which allows her to mobilize without any assistive device at home/ community safely. LTG Duration 8 weeks Owestry Impairment pt scores 56 on Owestry Short Term Goal (STG) pt will show improved overall mobility and strength to score <40 on [place]westry STG Duration 4 weeks Assisted Goal (LTG) pt will show improved overall mobility and strength to score <20 on Owestry LTG Duration 8 weeks Assessment Summary Assessment Farnaz is a 70 yo female s/p 4 weeks post lumbar fusion at L4-5 and laminectomy at L3-L5 (10/08/20). Upon assessment, pt and her are well aware of her post op precautions and show good understanding of her rehab expectations. She is currently using FWW for all mobility and able to minimize lumbar movements for gait, transfer and bed mobility. However, pt still has residual reduced sensation to light touch at L4 -L5 dermatome, LE weakness L>R (especially hip abduction), along with overall single leg balance. Pt will benefit from skilled therapy to focus on strengtening her LEs, core stabilization, gait training and overall balance, in order for her to full return to her PLOF without assistance from . Physical Therapy Plan Frequency and Duration Frequency of Treatment 2x/Week Duration of Treatment 8 weeks Plan of Care Start Date 11/06/20 Plan of Care End Date 01/05/21 Therapeutic Interventions Therapeutic Interventions Aquatic Therapy,Balance Training,Gait Training,Home Exercise Program,Joint Mobilizations,Manual Therapy, Neuromuscular Re-education, Patient/Caregiver Education, Self-Care/Home Management,Soft Tissue Mobilization,Taping, Therapeutic Activities, Therapeutic Exercises Modalities Cold Pack/Ice Massage,Electric Stimulation,Hot Packs, Infrared Therapy,Traction- Mechanical,Ultrasound Next Visit Focus/Plan Next Note Type Treatment Note Next Visit Plan gentle lumbar ROM LTR, pelvic tilt SLR, hip clamshell leg press gait training if jordin
--- NOTE | 2020-11-06 12:45 | PT.OPPOC ---
Physical, Occupational & Speech Therapy At [facility] Current Diagnoses Spondylolisthesis, lumbar region (11/06/20) Spinal stenosis, lumbar region with neurogenic claudication (11/06/20) Visit Care Team Role Provider Type Heidi Mckeon MD Family Provider Physician Primary Care Provider Specialty: Family Practice Address: [address] [place] [address], [facility], [place], [address] Email: [email or web address] Elias Rodriguez DO Attending Provider Non-Staff Referring Provider Specialty: Neurology Address: [address] [place] [address], [id number] Email: Plan Of Care PT-OP-T Assessment and Plan Start: 11/06/20 12:10 Freq: Status: Active Protocol: Document 11/06/20 12:11 (Rec: 11/06/20 12:44 [email or web address]) Physical Therapy Assessment Rehab Potential Rehabilitation Potential Good Evaluation Complexity Number of Personal Factors/Comorbidities 1-2 Number of Body Systems Impaired 1-2 Clinical Presentation at Evaluation Stable Impairments Impairments Activity Tolerance,Balance, Functional Activities, Functional Mobility,Gait,Pain, Posture,ROM,Sensation,Soft Tissue Mobility,Strength, Transfers Goals activity tolerance. Impairment pt needs supervision from for ADLs, assistance for oil well services supervisor Short Term Goal (STG) pt will be able to complete all ADLs (toileting, showering , bed mobility, etc) indepedently without supervision/ assistance. STG Duration 4 weeks Brazing Furnace Feeder Goal (LTG) pt will be able to complete all some oil well services supervisor such as dish washing, laundry cleaning etc with safe body mechanics. LTG Duration 8 weeks gait Impairment pt uses FWW for all mobility Short Term Goal (STG) pt will show improved stability and LE strength which allows her to mobilize with SPC/ less at home safely STG Duration 4 weeks Senior Care Goal (LTG) pt will show improved stability and LE strength which allows her to mobilize without any assistive device at home/ community safely. LTG Duration 8 weeks Owestry Impairment pt scores 56 on Owestry Short Term Goal (STG) pt will show improved overall mobility and strength to score <40 on Owestry STG Duration 4 weeks Senior Care Goal (LTG) pt will show improved overall mobility and strength to score <20 on Owestry LTG Duration 8 weeks Assessment Summary Assessment Farnaz is a 70 yo female s/p 4 weeks post lumbar fusion at L4-5 and laminectomy at L3-L5 (10/08/20). Upon assessment, pt and her are well aware of her post op precautions and show good understanding of her rehab expectations. She is currently using FWW for all mobility and able to minimize lumbar movements for gait, transfer and bed mobility. However, pt still has residual reduced sensation to light touch at L4 -L5 dermatome, LE weakness L>R (especially hip abduction), along with overall single leg balance. Pt will benefit from skilled therapy to focus on strengtening her LEs, core stabilization, gait training and overall balance, in order for her to full return to her PLOF without assistance from . Physical Therapy Plan Frequency and Duration Frequency of Treatment 2x/Week Duration of Treatment 8 weeks Plan of Care Start Date 11/06/20 Plan of Care End Date 01/05/21 Therapeutic Interventions Therapeutic Interventions Aquatic Therapy,Balance Training,Gait Training,Home Exercise Program,Joint Mobilizations,Manual Therapy, Neuromuscular Re-education, Patient/Caregiver Education, Self-Care/Home Management,Soft Tissue Mobilization,Taping, Therapeutic Activities, Therapeutic Exercises Modalities Cold Pack/Ice Massage,Electric Stimulation,Hot Packs, Infrared Therapy,Traction- Mechanical,Ultrasound Next Visit Focus/Plan Next Note Type Treatment Note Next Visit Plan gentle lumbar ROM LTR, pelvic tilt SLR, hip clamshell leg press gait training if jordin Plan of Care Dates Plan of Care Start Date 11/06/20 Plan of Care End Date 01/05/21 Electronically Signed by: Courtney Hall PT 11/06/20 [id number] Please Sign and Return: I have reviewed this Plan of Care and certify that the skilled therapy services above are required to meet the patient?s needs. Physician Signature Date Printed Name and Credentials Clinical Instructor Signature Printed Name and Credentials
--- NOTE | 2020-11-08 16:16 | PT.OTN ---
Current Diagnoses Spondylolisthesis, lumbar region (11/08/20) Spinal stenosis, lumbar region with neurogenic claudication (11/08/20) Physical Therapy Treatment Note PT-OP-A Visit Information Start: 11/06/20 12:10 Freq: Status: Active Protocol: Document 11/08/20 13:46 HH (Rec: 11/08/20 16:15 HH [id number]) Out-Patient Physical Therapy Visit Information Visit Information Visit Type Treatment Note Visit Start Time 13:45 Visit Stop Time 14:29 Total Visit Minutes 44 Visit Number 07/05 Number of COVER ASSEMBLER Visits 0 PT-OP-B Current Condition Start: 11/06/20 12:10 Freq: Status: Active Protocol: Document 11/06/20 12:11 HH (Rec: 11/06/20 12:44 HH [email or web address]) Current Condition History of Current Condition Onset Date 10/08/20 Current Complaints post lumbar fusion, difficulty in mobility History of Current Condition Farnaz is a 70yo female s/p 4 weeks post lumbar fusion at L4 -L5 level with laminectomy from L3-L5 on 10/08/20 at [facility] by Surgeon Dr. Rodriguez. Pt has been having LBP with B hip pain, LE weakness and reduced sensation to lateral thighs for ~2 years. Her LE strength is coming back but she is currently using FWW for all activity. She c/o she still has LE weakness L>R, pain on L hip during WB activities and reduced sensation to touch at proximal lateral thigh and medial calf area. 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 PMH includes= ACDF at C5-C6. 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 Functional Limitations- Mobility/Gait FWW at all times, mobilizing within the house under supervision use of chair armrest, table support for sit <> stand Personal Factors Other Personal Factors That May Effect HTN Therapy/Recovery previous ACDF C5-C6 pt is very anxious with her rehab progress and movements. PT-OP-C Subjective Start: 11/06/20 12:10 Freq: Status: Active Protocol: Document 11/08/20 13:46 HH (Rec: 11/08/20 16:15 HH [id number]) OP-PT Subjective Patient Comments Patient Comments I am ready to have my PT! PT-OP-D Balance Start: 11/06/20 12:10 Freq: Status: Active Protocol: Document 11/06/20 12:11 HH (Rec: 11/06/20 12:44 [email or web address]) Balance Tests Single Limb Standing Single Limb- Right 10s,20s. better stability, arms extended Single Limb- Left 8s, 10s. trendelenburg sign, arms extended, excessive movements. PT-OP-E Functional Tests Start: 11/06/20 12:10 Freq: Status: Active Protocol: Document 11/06/20 12:11 HH (Rec: 11/06/20 12:44 [email or web address]) Functional Tests 30 Second Sit to Stand Test Score 10 times, UE on table for push off and stability Comments neutral spine, hip hinge and squat pattern noted, WB mostly on RLE, PT-OP-F Manual Assessment Start: 11/06/20 12:10 Freq: Status: Active Protocol: Document 11/06/20 12:11 HH (Rec: 11/06/20 12:44 [email or web address]) Manual Assessments Soft Tissue Assessment Soft Tissue Mobility Assessment significant hypertonicty at piriformis, SIJ, glute med L>R mild tonicity at B QL L>R PT-OP-G Mobility & Gait Start: 11/06/20 12:10 Freq: Status: Active Protocol: Document 11/06/20 12:11 HH (Rec: 11/06/20 12:44 [email or web address]) OP Mobility Evaluation Bed Mobility Rolling log roll slowly Supine to and from Sit log roll first then SL to sit Transfers Sit to Stand pt uses UE support on table to stand up with neutral spine. OP Gait Assessment Assistive Devices Assistive Device Front Wheeled Walker Gait Deviations General Gait Pattern Antalgic,Decreased Stride Length,Decreased Feet Clearance,Lateral Trunk Lean Factors Limiting Gait Function Factors Limiting Gait Function Decreased Activity Tolerance, Decreased Sensation,Decreased Strength,Limited Range of Motion,Pain,Poor Balance Comments Gait Comments pt amb with a FWW, increased WB on RLE. PT-OP-H Neuro Start: 11/06/20 12:10 Freq: Status: Active Protocol: Document 11/06/20 12:11 HH (Rec: 11/06/20 12:44 [email or web address]) Sensation Evaluation Gross Sensation Gross Sensation Left LE Impaired Sensation Description Paresthesia,Numbness Dermatome Impairments L4 Comments Summary Comments reduced sensation to light tought at L proximal lateral thigh and R medial calf. WFL for pinpick and pressure Deep Tendon Reflex & Clonus Assessment Deep Tendon Reflex Bilateral Achilles Deep Tendon Reflex 2+ Normal Bilateral Patellar Deep Tendon Reflex 2+ Normal PT-OP-K Range of Motion Start: 11/06/20 12:10 Freq: Status: Active Protocol: Document 11/06/20 12:11 (Rec: 11/06/20 12:44 [email or web address]) Hip Goniometric Range of Motion Hip Right Active Straight Leg Raise 95 Comments discomfort at low back while lowering her LE from SLR position Left Active Hip ROM WFL Yes Straight Leg Raise 95 Comments discomfort at low back while lowering her LE from SLR position PT-OP-M Strength Start: 11/06/20 12:10 Freq: Status: Active Protocol: Document 11/06/20 12:11 (Rec: 11/06/20 12:44 [email or web address]) Hip Strength Hip Manual Muscle Testing Right Flexion (L2) 4 Good Extension (S1) 4 Good Abduction 4 Good Adduction 4 Good Comments discomfort at low back while lowering her LE from SLR position Left Flexion (L2) 4- Good- Extension (S1) 4- Good- Abduction 3 Fair Adduction 4- Good- Comments pain with hip abd discomfort at low back while lowering her LE from SLR position Knee Strength Knee Manual Muscle Testing Right Flexion (S2) 4+ Good+ Extension (L3) 4+ Good+ Left Flexion (S2) 4+ Good+ Extension (L3) 4+ Good+ Ankle/Foot Strength Ankle and Foot Manual Muscle Testing Right Dorsiflexion (L4) 4+ Good+ Plantarflexion (S1) 4+ Good+ Inversion 4+ Good+ Eversion (S1) 4+ Good+ Left Dorsiflexion (L4) 4+ Good+ Plantarflexion (S1) 4+ Good+ Inversion 4+ Good+ Eversion (S1) 4- Good- Comments pain at L hip and cocontraction with L hip abduction during ankle eversion Toe Strength Toe Manual Muscle Testing Right Great Toe Flexion 4+ Good+ Extension 4+ Good+ Left Great Toe Flexion 4+ Good+ Extension 4+ Good+ PT-OP-Q Treatments Start: 11/06/20 12:10 Freq: Status: Active Protocol: Document 11/08/20 13:46 (Rec: 11/08/20 16:15 [id number]) Cardio Equipment Recumbent Stepper (Sci-Fit) Duration (Minutes) 5 Resistance 3 Therapeutic Exercises Supine Exercises pelvic tilt Reps/Minutes 10 x1 Comments for HEP supine clamshell Side left Equipment Used level 1 band around knees Reps/Minutes 8 x 2 Comments for HEP figure 4 stretch Side left Reps/Minutes 15 sec x 5 Comments stretching pain noted at greater trochanter region LTR Reps/Minutes 8 x2 Comments cues on neutral spine with eccentric control Standing Exercises squat Side bilateral Reps/Minutes 8 x2 Comments for HEP Manual Therapy Treatment Soft Tissue Mobilization L hip Body Location glutes, piriformis Mobilization Type Myofascial Release,Sustained Pressure,Trigger Point Release Intensity/Depth Moderate Body Position Sidelying Comments most discomfort at glute med tendon and greater trochanter region Joint Mobilizations L hip traction Joint L hip Direction inferior Grade IV Body Position Supine Reps/Duration 10 sec x 5 PT-OP-T Assessment and Plan Start: 11/06/20 12:10 Freq: Status: Active Protocol: Document 11/08/20 13:46 (Rec: 11/08/20 16:15 [id number]) Physical Therapy Assessment Goals activity tolerance. 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 LTG Duration 8 weeks gait Impairment pt uses FWW for all mobility Short Term Goal (STG) pt will show improved stability and LE strength which allows her to mobilize with SPC/ less at home safely STG Duration 4 weeks Pelletizer Operator Goal (LTG) pt will show improved stability and LE strength which allows her to mobilize without any assistive device at home/ community safely. LTG Duration 8 weeks Owestry Impairment pt scores 56 on Owestry Short Term Goal (STG) pt will show improved overall mobility and strength to score <40 on Owestry STG Duration 4 weeks Pelletizer Operator Goal (LTG) pt will show improved overall mobility and strength to score <20 on Owestry LTG Duration 8 weeks Assessment Summary Assessment further assessment today and i noticed pt has possible greater trochanteric bursitis who is very painful to touch that area with limited external rotation. Pt stated this has been bothering her for awhile and her recent hip X-ray has ruled out OA pathology. Introduced her figure 4 stretch, supine clamshell, LTR, pelvic tilt and squat. Pt jordin session well Physical Therapy Plan Frequency and Duration Frequency of Treatment 2x/Week Duration of Treatment 8 weeks Plan of Care Start Date 11/06/20 Plan of Care End Date 01/05/21 Therapeutic Interventions Therapeutic Interventions Aquatic Therapy,Balance Training,Gait Training,Home Exercise Program,Joint Mobilizations,Manual Therapy, Neuromuscular Re-education, Patient/Caregiver Education, Self-Care/Home Management,Soft Tissue Mobilization,Taping, Therapeutic Activities, Therapeutic Exercises Modalities Cold Pack/Ice Massage,Electric Stimulation,Hot Packs, Infrared Therapy,Traction- Mechanical,Ultrasound Next Visit Focus/Plan Next Note Type Treatment Note Next Visit Plan gentle lumbar ROM LTR, pelvic tilt SLR, hip clamshell leg press gait training if jordin
--- NOTE | 2020-11-11 12:14 | PT.OTN ---
Current Diagnoses Spondylolisthesis, lumbar region (11/11/20) Spinal stenosis, lumbar region with neurogenic claudication (11/11/20) Physical Therapy Treatment Note PT-OP-A Visit Information Start: 11/06/20 12:10 Freq: Status: Active Protocol: Document 11/11/20 11:17 HH (Rec: 11/11/20 12:14 [id number]) Out-Patient Physical Therapy Visit Information Visit Information Visit Type Treatment Note Visit Start Time 11:16 Visit Stop Time 12:10 Total Visit Minutes 54 Visit Number 08/02 Number of COMMODITIES BROKER Visits 0 PT-OP-B Current Condition Start: 11/06/20 12:10 Freq: Status: Active Protocol: Document 11/06/20 12:11 HH (Rec: 11/06/20 12:44 HH [email or web address]) Current Condition History of Current Condition Onset Date 10/08/20 Current Complaints post lumbar fusion, difficulty in mobility History of Current Condition Farnaz is a 70yo female s/p 4 weeks post lumbar fusion at L4 -L5 level with laminectomy from L3-L5 on 10/08/20 at [facility] by Surgeon Dr. Rodriguez. Pt has been having LBP with B hip pain, LE weakness and reduced sensation to lateral thighs for ~2 years. Her LE strength is coming back but she is currently using FWW for all activity. She c/o she still has LE weakness L>R, pain on L hip during WB activities and reduced sensation to touch at proximal lateral thigh and medial calf area. 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 PMH includes= ACDF at C5-C6. Prior Treatments and Tests ACDF at c5-C6 2019 Current Functional Impairments (Reported) Functional Limitations- ADL's able to complete self dressing , bed mobility supervision from for showering completes all measuring machine operator. Functional Limitations- Mobility/Gait FWW at all times, mobilizing within the house under supervision use of chair armrest, table support for sit <> stand Personal Factors Other Personal Factors That May Effect HTN Therapy/Recovery previous ACDF C5-C6 pt is very anxious with her rehab progress and movements. PT-OP-C Subjective Start: 11/06/20 12:10 Freq: Status: Active Protocol: Document 11/11/20 11:17 HH (Rec: 11/11/20 12:14 [id number]) OP-PT Subjective Patient Comments Patient Comments I want to check my BP today since i have been having down to 100s/50s. Cause i just started a new BP med. The figure 4 stretch can make my L hip sore. PT-OP-D Balance Start: 11/06/20 12:10 Freq: Status: Active Protocol: Document 11/06/20 12:11 HH (Rec: 11/06/20 12:44 [email or web address]) Balance Tests Single Limb Standing Single Limb- Right 10s,20s. better stability, arms extended Single Limb- Left 8s, 10s. trendelenburg sign, arms extended, excessive movements. PT-OP-E Functional Tests Start: 11/06/20 12:10 Freq: Status: Active Protocol: Document 11/06/20 12:11 HH (Rec: 11/06/20 12:44 [email or web address]) Functional Tests 30 Second Sit to Stand Test Score 10 times, UE on table for push off and stability Comments neutral spine, hip hinge and squat pattern noted, WB mostly on RLE, PT-OP-F Manual Assessment Start: 11/06/20 12:10 Freq: Status: Active Protocol: Document 11/06/20 12:11 HH (Rec: 11/06/20 12:44 [email or web address]) Manual Assessments Soft Tissue Assessment Soft Tissue Mobility Assessment significant hypertonicty at piriformis, SIJ, glute med L>R mild tonicity at B QL L>R PT-OP-G Mobility & Gait Start: 11/06/20 12:10 Freq: Status: Active Protocol: Document 11/06/20 12:11 (Rec: 11/06/20 12:44 [email or web address]) OP Mobility Evaluation Bed Mobility Rolling log roll slowly Supine to and from Sit log roll first then SL to sit Transfers Sit to Stand pt uses UE support on table to stand up with neutral spine. OP Gait Assessment Assistive Devices Assistive Device Front Wheeled Walker Gait Deviations General Gait Pattern Antalgic,Decreased Stride Length,Decreased Feet Clearance,Lateral Trunk Lean Factors Limiting Gait Function Factors Limiting Gait Function Decreased Activity Tolerance, Decreased Sensation,Decreased Strength,Limited Range of Motion,Pain,Poor Balance Comments Gait Comments pt amb with a FWW, increased WB on RLE. PT-OP-H Neuro Start: 11/06/20 12:10 Freq: Status: Active Protocol: Document 11/06/20 12:11 HH (Rec: 11/06/20 12:44 [email or web address]) Sensation Evaluation Gross Sensation Gross Sensation Left LE Impaired Sensation Description Paresthesia,Numbness Dermatome Impairments L4 Comments Summary Comments reduced sensation to light tought at L proximal lateral thigh and R medial calf. WFL for pinpick and pressure Deep Tendon Reflex & Clonus Assessment Deep Tendon Reflex Bilateral Achilles Deep Tendon Reflex 2+ Normal Bilateral Patellar Deep Tendon Reflex 2+ Normal PT-OP-K Range of Motion Start: 11/06/20 12:10 Freq: Status: Active Protocol: Document 11/06/20 12:11 HH (Rec: 11/06/20 12:44 [email or web address]) Hip Goniometric Range of Motion Hip Right Active Straight Leg Raise 95 Comments discomfort at low back while lowering her LE from SLR position Left Active Hip ROM WFL Yes Straight Leg Raise 95 Comments discomfort at low back while lowering her LE from SLR position PT-OP-M Strength Start: 11/06/20 12:10 Freq: Status: Active Protocol: Document 11/06/20 12:11 HH (Rec: 11/06/20 12:44 [email or web address]) Hip Strength Hip Manual Muscle Testing Right Flexion (L2) 4 Good Extension (S1) 4 Good Abduction 4 Good Adduction 4 Good Comments discomfort at low back while lowering her LE from SLR position Left Flexion (L2) 4- Good- Extension (S1) 4- Good- Abduction 3 Fair Adduction 4- Good- Comments pain with hip abd discomfort at low back while lowering her LE from SLR position Knee Strength Knee Manual Muscle Testing Right Flexion (S2) 4+ Good+ Extension (L3) 4+ Good+ Left Flexion (S2) 4+ Good+ Extension (L3) 4+ Good+ Ankle/Foot Strength Ankle and Foot Manual Muscle Testing Right Dorsiflexion (L4) 4+ Good+ Plantarflexion (S1) 4+ Good+ Inversion 4+ Good+ Eversion (S1) 4+ Good+ Left Dorsiflexion (L4) 4+ Good+ Plantarflexion (S1) 4+ Good+ Inversion 4+ Good+ Eversion (S1) 4- Good- Comments pain at L hip and cocontraction with L hip abduction during ankle eversion Toe Strength Toe Manual Muscle Testing Right Great Toe Flexion 4+ Good+ Extension 4+ Good+ Left Great Toe Flexion 4+ Good+ Extension 4+ Good+ PT-OP-Q Treatments Start: 11/06/20 12:10 Freq: Status: Active Protocol: Document 11/11/20 11:17 (Rec: 11/11/20 12:14 [id number]) Cardio Equipment Recumbent Stepper (Sci-Fit) Duration (Minutes) 6 Resistance 3 Therapeutic Exercises Supine Exercises ab curl Equipment Used red therapy ball Reps/Minutes 8 x2 Comments no dsicomfort pelvic tilt Reps/Minutes 10 x1 Comments for HEP supine clamshell Side left Equipment Used level 1 band around knees Reps/Minutes 8 x 2 Comments no dsicomfort figure 4 stretch Side left Reps/Minutes 15 sec x 5 Comments stretching pain noted at greater trochanter region LTR Reps/Minutes 8 x2 Comments cues on neutral spine with eccentric control Manual Therapy Treatment Soft Tissue Mobilization L hip Body Location glutes, piriformis Mobilization Type Myofascial Release,Sustained Pressure,Trigger Point Release Intensity/Depth Moderate Body Position Sidelying Comments most discomfort at glute med tendon and greater trochanter region Joint Mobilizations L hip traction Joint L hip Direction inferior Grade IV Body Position Supine Reps/Duration 10 sec x 5 PT-OP-R Modalities Start: 11/06/20 12:10 Freq: Status: Active Protocol: Document 11/11/20 11:17 (Rec: 11/11/20 12:14 [id number]) Hot Pack/Cold Pack Treatment Hot Pack Location L hip Patient Position Sidelying Treatment Duration (minutes) 10 Patient Tolerance Good PT-OP-T Assessment and Plan Start: 11/06/20 12:10 Freq: Status: Active Protocol: Document 11/11/20 11:17 (Rec: 11/11/20 12:14 [id number]) Physical Therapy Assessment Goals activity tolerance. Impairment pt needs supervision from for ADLs, assistance for measuring machine operator Short Term Goal (STG) pt will be able to complete all ADLs (toileting, showering , bed mobility, etc) indepedently without supervision/ assistance. STG Duration 4 weeks Residential Goal (LTG) pt will be able to complete all some measuring machine operator such as dish washing, laundry cleaning etc with safe body mechanics. LTG Duration 8 weeks gait Impairment pt uses FWW for all mobility Short Term Goal (STG) pt will show improved stability and LE strength which allows her to mobilize with SPC/ less at home safely STG Duration 4 weeks Residential Goal (LTG) pt will show improved stability and LE strength which allows her to mobilize without any assistive device at home/ community safely. LTG Duration 8 weeks Owestry Impairment pt scores 56 on Owestry Short Term Goal (STG) pt will show improved overall mobility and strength to score <40 on Owestry STG Duration 4 weeks Residential Goal (LTG) pt will show improved overall mobility and strength to score <20 on Owestry LTG Duration 8 weeks Assessment Summary Assessment Pt c/o soreness from supine clamshell but spent explained to her is normal d/t early phase of rehab and lack of mucsle strength. Reviewed all HEP with her and she is doing well. Physical Therapy Plan Frequency and Duration Frequency of Treatment 2x/Week Duration of Treatment 8 weeks Plan of Care Start Date 11/06/20 Plan of Care End Date 01/05/21 Therapeutic Interventions Therapeutic Interventions Aquatic Therapy,Balance Training,Gait Training,Home Exercise Program,Joint Mobilizations,Manual Therapy, Neuromuscular Re-education, Patient/Caregiver Education, Self-Care/Home Management,Soft Tissue Mobilization,Taping, Therapeutic Activities, Therapeutic Exercises Modalities Cold Pack/Ice Massage,Electric Stimulation,Hot Packs, Infrared Therapy,Traction- Mechanical,Ultrasound Next Visit Focus/Plan Next Note Type Treatment Note Next Visit Plan gentle lumbar ROM LTR, pelvic tilt SLR, hip clamshell leg press gait training if jordin
--- NOTE | 2020-11-14 12:08 | PT.OTN ---
Current Diagnoses Spondylolisthesis, lumbar region (11/14/20) Spinal stenosis, lumbar region with neurogenic claudication (11/14/20) Physical Therapy Treatment Note PT-OP-A Visit Information Start: 11/06/20 12:10 Freq: Status: Active Protocol: Document 11/14/20 11:19 HH (Rec: 11/14/20 12:08 [id number]) Out-Patient Physical Therapy Visit Information Visit Information Visit Type Treatment Note Visit Start Time 11:18 Visit Stop Time 12:00 Total Visit Minutes 42 Visit Number 09/02 Number of WINCH STRIPPER Visits 0 PT-OP-B Current Condition Start: 11/06/20 12:10 Freq: Status: Active Protocol: Document 11/06/20 12:11 HH (Rec: 11/06/20 12:44 HH [email or web address]) Current Condition History of Current Condition Onset Date 10/08/20 Current Complaints post lumbar fusion, difficulty in mobility History of Current Condition Farnaz is a 70yo female s/p 4 weeks post lumbar fusion at L4 -L5 level [place] [facility] [place]. Pt has been having LBP with B hip pain, LE weakness and reduced sensation to lateral thighs for ~2 years. Her LE strength is coming back but she is currently using FWW for all activity. She c/o she still has LE weakness L>R, pain on L hip during WB activities and reduced sensation to touch at proximal lateral thigh and medial calf area. 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 PMH includes= ACDF at C5-C6. Prior Treatments and Tests ACDF at c5-C6 2019 Current Functional Impairments (Reported) Functional Limitations- ADL's able to complete self dressing , bed mobility supervision from for showering completes all clock repairer. Functional Limitations- Mobility/Gait FWW at all times, mobilizing within the house under supervision use of chair armrest, table support for sit <> stand Personal Factors Other Personal Factors That May Effect HTN Therapy/Recovery previous ACDF C5-C6 pt is very anxious with her rehab progress and movements. PT-OP-C Subjective Start: 11/06/20 12:10 Freq: Status: Active Protocol: Document 11/14/20 11:19 HH (Rec: 11/14/20 12:08 [id number]) OP-PT Subjective Patient Comments Patient Comments I did get sore from last time but im doing okay today. Elo been walking the house without the walker. Patient Reported Progress Improving PT-OP-D Balance Start: 11/06/20 12:10 Freq: Status: Active Protocol: Document 11/06/20 12:11 HH (Rec: 11/06/20 12:44 [email or web address]) Balance Tests Single Limb Standing Single Limb- Right 10s,20s. better stability, arms extended Single Limb- Left 8s, 10s. trendelenburg sign, arms extended, excessive movements. PT-OP-E Functional Tests Start: 11/06/20 12:10 Freq: Status: Active Protocol: Document 11/06/20 12:11 HH (Rec: 11/06/20 12:44 [email or web address]) Functional Tests 30 Second Sit to Stand Test Score 10 times, UE on table for push off and stability Comments neutral spine, hip hinge and squat pattern noted, WB mostly on RLE, PT-OP-F Manual Assessment Start: 11/06/20 12:10 Freq: Status: Active Protocol: Document 11/06/20 12:11 HH (Rec: 11/06/20 12:44 [email or web address]) Manual Assessments Soft Tissue Assessment Soft Tissue Mobility Assessment significant hypertonicty at piriformis, SIJ, glute med L>R mild tonicity at B QL L>R PT-OP-G Mobility & Gait Start: 11/06/20 12:10 Freq: Status: Active Protocol: Document 11/06/20 12:11 (Rec: 11/06/20 12:44 [email or web address]) OP Mobility Evaluation Bed Mobility Rolling log roll slowly Supine to and from Sit log roll first then SL to sit Transfers Sit to Stand pt uses UE support on table to stand up with neutral spine. OP Gait Assessment Assistive Devices Assistive Device Front Wheeled Walker Gait Deviations General Gait Pattern Antalgic,Decreased Stride Length,Decreased Feet Clearance,Lateral Trunk Lean Factors Limiting Gait Function Factors Limiting Gait Function Decreased Activity Tolerance, Decreased Sensation,Decreased Strength,Limited Range of Motion,Pain,Poor Balance Comments Gait Comments pt amb with a FWW, increased WB on RLE. PT-OP-H Neuro Start: 11/06/20 12:10 Freq: Status: Active Protocol: Document 11/06/20 12:11 (Rec: 11/06/20 12:44 [email or web address]) Sensation Evaluation Gross Sensation Gross Sensation Left LE Impaired Sensation Description Paresthesia,Numbness Dermatome Impairments L4 Comments Summary Comments reduced sensation to light tought at L proximal lateral thigh and R medial calf. WFL for pinpick and pressure Deep Tendon Reflex & Clonus Assessment Deep Tendon Reflex Bilateral Achilles Deep Tendon Reflex 2+ Normal Bilateral Patellar Deep Tendon Reflex 2+ Normal PT-OP-K Range of Motion Start: 11/06/20 12:10 Freq: Status: Active Protocol: Document 11/06/20 12:11 HH (Rec: 11/06/20 12:44 [email or web address]) Hip Goniometric Range of Motion Hip Right Active Straight Leg Raise 95 Comments discomfort at low back while lowering her LE from SLR position Left Active Hip ROM WFL Yes Straight Leg Raise 95 Comments discomfort at low back while lowering her LE from SLR position PT-OP-M Strength Start: 11/06/20 12:10 Freq: Status: Active Protocol: Document 11/06/20 12:11 (Rec: 11/06/20 12:44 [email or web address]) Hip Strength Hip Manual Muscle Testing Right Flexion (L2) 4 Good Extension (S1) 4 Good Abduction 4 Good Adduction 4 Good Comments discomfort at low back while lowering her LE from SLR position Left Flexion (L2) 4- Good- Extension (S1) 4- Good- Abduction 3 Fair Adduction 4- Good- Comments pain with hip abd discomfort at low back while lowering her LE from SLR position Knee Strength Knee Manual Muscle Testing Right Flexion (S2) 4+ Good+ Extension (L3) 4+ Good+ Left Flexion (S2) 4+ Good+ Extension (L3) 4+ Good+ Ankle/Foot Strength Ankle and Foot Manual Muscle Testing Right Dorsiflexion (L4) 4+ Good+ Plantarflexion (S1) 4+ Good+ Inversion 4+ Good+ Eversion (S1) 4+ Good+ Left Dorsiflexion (L4) 4+ Good+ Plantarflexion (S1) 4+ Good+ Inversion 4+ Good+ Eversion (S1) 4- Good- Comments pain at L hip and cocontraction with L hip abduction during ankle eversion Toe Strength Toe Manual Muscle Testing Right Great Toe Flexion 4+ Good+ Extension 4+ Good+ Left Great Toe Flexion 4+ Good+ Extension 4+ Good+ PT-OP-Q Treatments Start: 11/06/20 12:10 Freq: Status: Active Protocol: Document 11/14/20 11:19 HH (Rec: 11/14/20 12:08 [id number]) Cardio Equipment Recumbent Stepper (Sci-Fit) Duration (Minutes) 6 Resistance 3 Gym Equipment Shuttle Recovery SL squat Resistance #37, 50 Shuttle Recovery Platform Stable Reps/Time 12 x 2 Therapeutic Exercises Supine Exercises bridging Supine Exercise Name for HEP. Reps/Minutes 3 sec hold x 8 Comments cues on PPT, ab curl Equipment Used red therapy ball Reps/Minutes 8 x2 Comments no dsicomfort pelvic tilt Reps/Minutes 10 x1 Comments for HEP supine clamshell Side left Equipment Used yellow around knees Reps/Minutes 8 x 2 Comments no dsicomfort LTR Reps/Minutes 8 x2 Comments cues on neutral spine with eccentric control Manual Therapy Treatment Soft Tissue Mobilization L hip Body Location glutes, piriformis Mobilization Type Myofascial Release,Sustained Pressure,Trigger Point Release Intensity/Depth Moderate Body Position Sidelying Comments most discomfort at glute med tendon and greater trochanter region Joint Mobilizations L hip traction Joint L hip Direction inferior Grade IV Body Position Supine Reps/Duration 10 sec x 5 PT-OP-R Modalities Start: 11/06/20 12:10 Freq: Status: Active Protocol: Document 11/11/20 11:17 HH (Rec: 11/11/20 12:14 [id number]) Hot Pack/Cold Pack Treatment Hot Pack Location L hip Patient Position Sidelying Treatment Duration (minutes) 10 Patient Tolerance Good PT-OP-T Assessment and Plan Start: 11/06/20 12:10 Freq: Status: Active Protocol: Document 11/14/20 11:19 (Rec: 11/14/20 12:08 [id number]) Physical Therapy Assessment Goals activity tolerance. Impairment pt needs supervision from for ADLs, assistance for clock repairer Short Term Goal (STG) pt will be able to complete all ADLs (toileting, showering , bed mobility, etc) indepedently without supervision/ assistance. STG Duration 4 weeks Route Carrier Goal (LTG) pt will be able to complete all some clock repairer such as dish washing, laundry cleaning etc with safe body mechanics. LTG Duration 8 weeks gait Impairment pt uses FWW for all mobility Short Term Goal (STG) pt will show improved stability and LE strength which allows her to mobilize with SPC/ less at home safely STG Duration 4 weeks [facility] Goal (LTG) pt will show improved stability and LE strength which allows her to mobilize without any assistive device at home/ community safely. LTG Duration 8 weeks Owestry Impairment pt scores 56 on Owestry Short Term Goal (STG) pt will show improved overall mobility and strength to score <40 on Owestry STG Duration 4 weeks [facility] Goal (LTG) pt will show improved overall mobility and strength to score <20 on Owestry LTG Duration 8 weeks Assessment Summary Assessment pt shows improved bed mobility who is now able to complete sit to supine without log roll everytime. Added bridging and leg press today and she jordin very well. encouraged pt to amb without walker more often now. Physical Therapy Plan Frequency and Duration Frequency of Treatment 2x/Week Duration of Treatment 8 weeks Plan of Care Start Date 11/06/20 Plan of Care End Date 01/05/21 Therapeutic Interventions Therapeutic Interventions Aquatic Therapy,Balance Training,Gait Training,Home Exercise Program,Joint Mobilizations,Manual Therapy, Neuromuscular Re-education, Patient/Caregiver Education, Self-Care/Home Management,Soft Tissue Mobilization,Taping, Therapeutic Activities, Therapeutic Exercises Modalities Cold Pack/Ice Massage,Electric Stimulation,Hot Packs, Infrared Therapy,Traction- Mechanical,Ultrasound Next Visit Focus/Plan Next Note Type Treatment Note Next Visit Plan gentle lumbar ROM LTR, pelvic tilt SLR, hip clamshell leg press gait training if jordin
--- NOTE | 2020-11-19 12:06 | PT.OTN ---
Current Diagnoses Spondylolisthesis, lumbar region (11/19/20) Spinal stenosis, lumbar region with neurogenic claudication (11/19/20) Physical Therapy Treatment Note PT-OP-A Visit Information Start: 11/06/20 12:10 Freq: Status: Active Protocol: Document 11/19/20 10:38 HH (Rec: 11/19/20 12:04 [id number]) Out-Patient Physical Therapy Visit Information Visit Information Visit Type Treatment Note Visit Start Time 11:17 Visit Stop Time 12:00 Total Visit Minutes 43 Visit Number 10/02 Number of DATA REVIEWER Visits 0 PT-OP-B Current Condition Start: 11/06/20 12:10 Freq: Status: Active Protocol: Document 11/06/20 12:11 HH (Rec: 11/06/20 12:44 HH [email or web address]) Current Condition History of Current Condition Onset Date 10/08/20 Current Complaints post lumbar fusion, difficulty in mobility History of Current Condition Farnaz is a 70yo female s/p 4 weeks post lumbar fusion at L4 -L5 level with laminectomy from L3-L5 on 10/08/20 at [facility] by Surgeon Dr. Rodriguez. Pt has been having LBP with B hip pain, LE weakness and reduced sensation to lateral thighs for ~2 years. Her LE strength is coming back but she is currently using FWW for all activity. She c/o she still has LE weakness L>R, pain on L hip during WB activities and reduced sensation to touch at proximal lateral thigh and medial calf area. 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 PMH includes= ACDF at C5-C6. Prior Treatments and Tests ACDF at c5-C6 2019 Current Functional Impairments (Reported) Functional Limitations- ADL's able to complete self dressing , bed mobility supervision from for showering completes all bolt threader. Functional Limitations- Mobility/Gait FWW at all times, mobilizing within the house under supervision use of chair armrest, table support for sit <> stand Personal Factors Other Personal Factors That May Effect HTN Therapy/Recovery previous ACDF C5-C6 pt is very anxious with her rehab progress and movements. PT-OP-C Subjective Start: 11/06/20 12:10 Freq: Status: Active Protocol: Document 11/19/20 10:38 HH (Rec: 11/19/20 12:04 [id number]) OP-PT Subjective Patient Comments Patient Comments I feel better in general. my pain on both sides of the hip are less. I can use my legs and able to sleep on R side for longer time Patient Reported Progress Improving PT-OP-D Balance Start: 11/06/20 12:10 Freq: Status: Active Protocol: Document 11/06/20 12:11 HH (Rec: 11/06/20 12:44 [email or web address]) Balance Tests Single Limb Standing Single Limb- Right 10s,20s. better stability, arms extended Single Limb- Left 8s, 10s. trendelenburg sign, arms extended, excessive movements. PT-OP-E Functional Tests Start: 11/06/20 12:10 Freq: Status: Active Protocol: Document 11/06/20 12:11 (Rec: 11/06/20 12:44 [email or web address]) Functional Tests 30 Second Sit to Stand Test Score 10 times, UE on table for push off and stability Comments neutral spine, hip hinge and squat pattern noted, WB mostly on RLE, PT-OP-F Manual Assessment Start: 11/06/20 12:10 Freq: Status: Active Protocol: Document 11/06/20 12:11 HH (Rec: 11/06/20 12:44 [email or web address]) Manual Assessments Soft Tissue Assessment Soft Tissue Mobility Assessment significant hypertonicty at piriformis, SIJ, glute med L>R mild tonicity at B QL L>R PT-OP-G Mobility & Gait Start: 11/06/20 12:10 Freq: Status: Active Protocol: Document 11/06/20 12:11 (Rec: 11/06/20 12:44 [email or web address]) OP Mobility Evaluation Bed Mobility Rolling log roll slowly Supine to and from Sit log roll first then SL to sit Transfers Sit to Stand pt uses UE support on table to stand up with neutral spine. OP Gait Assessment Assistive Devices Assistive Device Front Wheeled Walker Gait Deviations General Gait Pattern Antalgic,Decreased Stride Length,Decreased Feet Clearance,Lateral Trunk Lean Factors Limiting Gait Function Factors Limiting Gait Function Decreased Activity Tolerance, Decreased Sensation,Decreased Strength,Limited Range of Motion,Pain,Poor Balance Comments Gait Comments pt amb with a FWW, increased WB on RLE. PT-OP-H Neuro Start: 11/06/20 12:10 Freq: Status: Active Protocol: Document 11/06/20 12:11 (Rec: 11/06/20 12:44 [email or web address]) Sensation Evaluation Gross Sensation Gross Sensation Left LE Impaired Sensation Description Paresthesia,Numbness Dermatome Impairments L4 Comments Summary Comments reduced sensation to light tought at L proximal lateral thigh and R medial calf. WFL for pinpick and pressure Deep Tendon Reflex & Clonus Assessment Deep Tendon Reflex Bilateral Achilles Deep Tendon Reflex 2+ Normal Bilateral Patellar Deep Tendon Reflex 2+ Normal PT-OP-K Range of Motion Start: 11/06/20 12:10 Freq: Status: Active Protocol: Document 11/06/20 12:11 HH (Rec: 11/06/20 12:44 [email or web address]) Hip Goniometric Range of Motion Hip Right Active Straight Leg Raise 95 Comments discomfort at low back while lowering her LE from SLR position Left Active Hip ROM WFL Yes Straight Leg Raise 95 Comments discomfort at low back while lowering her LE from SLR position PT-OP-M Strength Start: 11/06/20 12:10 Freq: Status: Active Protocol: Document 11/06/20 12:11 (Rec: 11/06/20 12:44 [email or web address]) Hip Strength Hip Manual Muscle Testing Right Flexion (L2) 4 Good Extension (S1) 4 Good Abduction 4 Good Adduction 4 Good Comments discomfort at low back while lowering her LE from SLR position Left Flexion (L2) 4- Good- Extension (S1) 4- Good- Abduction 3 Fair Adduction 4- Good- Comments pain with hip abd discomfort at low back while lowering her LE from SLR position Knee Strength Knee Manual Muscle Testing Right Flexion (S2) 4+ Good+ Extension (L3) 4+ Good+ Left Flexion (S2) 4+ Good+ Extension (L3) 4+ Good+ Ankle/Foot Strength Ankle and Foot Manual Muscle Testing Right Dorsiflexion (L4) 4+ Good+ Plantarflexion (S1) 4+ Good+ Inversion 4+ Good+ Eversion (S1) 4+ Good+ Left Dorsiflexion (L4) 4+ Good+ Plantarflexion (S1) 4+ Good+ Inversion 4+ Good+ Eversion (S1) 4- Good- Comments pain at L hip and cocontraction with L hip abduction during ankle eversion Toe Strength Toe Manual Muscle Testing Right Great Toe Flexion 4+ Good+ Extension 4+ Good+ Left Great Toe Flexion 4+ Good+ Extension 4+ Good+ PT-OP-Q Treatments Start: 11/06/20 12:10 Freq: Status: Active Protocol: Document 11/19/20 10:38 HH (Rec: 11/19/20 12:04 [id number]) Cardio Equipment Recumbent Stepper (Sci-Fit) Duration (Minutes) 6 Resistance 3 Gym Equipment Shuttle Recovery SL squat Resistance #50 Shuttle Recovery Platform Stable Reps/Time 12 x 2 Therapeutic Exercises Supine Exercises bridging Supine Exercise Name for HEP. Equipment Used red band at knees. Reps/Minutes 3 sec hold x 8 Comments cues on PPT, ab curl Equipment Used red therapy ball Reps/Minutes 8 x2 Comments no dsicomfort supine clamshell Side left Equipment Used red around knees Reps/Minutes 8 x 2 Comments no dsicomfort, given level 3 band for HEP. LTR Reps/Minutes 8 x2 Comments cues on neutral spine with eccentric control Manual Therapy Treatment Soft Tissue Mobilization L hip Body Location glutes, piriformis Mobilization Type Myofascial Release,Sustained Pressure,Trigger Point Release Intensity/Depth Moderate Body Position Sidelying Comments most discomfort at glute med tendon and greater trochanter region Joint Mobilizations L hip traction Joint L hip Direction inferior Grade IV Body Position Supine Reps/Duration 10 sec x 5 PT-OP-R Modalities Start: 11/06/20 12:10 Freq: Status: Active Protocol: Document 11/11/20 11:17 HH (Rec: 11/11/20 12:14 [id number]) Hot Pack/Cold Pack Treatment Hot Pack Location L hip Patient Position Sidelying Treatment Duration (minutes) 10 Patient Tolerance Good PT-OP-T Assessment and Plan Start: 11/06/20 12:10 Freq: Status: Active Protocol: Document 11/19/20 10:38 HH (Rec: 11/19/20 12:04 [id number]) Physical Therapy Assessment Goals activity tolerance. Impairment pt needs supervision from for ADLs, assistance for bolt threader Short Term Goal (STG) pt will be able to complete all ADLs (toileting, showering , bed mobility, etc) indepedently without supervision/ assistance. STG Duration 4 weeks Correction Goal (LTG) pt will be able to complete all some bolt threader such as dish washing, laundry cleaning etc with safe body mechanics. LTG Duration 8 weeks gait Impairment pt uses FWW for all mobility Short Term Goal (STG) pt will show improved stability and LE strength which allows her to mobilize with SPC/ less at home safely STG Duration 4 weeks Information Security Director Goal (LTG) pt will show improved stability and LE strength which allows her to mobilize without any assistive device at home/ community safely. LTG Duration 8 weeks Owestry Impairment pt scores 56 on Owestry Short Term Goal (STG) pt will show improved overall mobility and strength to score <40 on Owestry STG Duration 4 weeks Correction Goal (LTG) pt will show improved overall mobility and strength to score <20 on Owestry LTG Duration 8 weeks Assessment Summary Assessment pt came in without walker today. Noticed pt still has slight antalgic sign on L. She reports improvements on overall leg strength and reduced hip pain. She jordin this session well and upgraded her supine clamshell with level 3 resistance band. Physical Therapy Plan Frequency and Duration Frequency of Treatment 2x/Week Duration of Treatment 8 weeks Plan of Care Start Date 11/06/20 Plan of Care End Date 01/05/21 Therapeutic Interventions Therapeutic Interventions Aquatic Therapy,Balance Training,Gait Training,Home Exercise Program,Joint Mobilizations,Manual Therapy, Neuromuscular Re-education, Patient/Caregiver Education, Self-Care/Home Management,Soft Tissue Mobilization,Taping, Therapeutic Activities, Therapeutic Exercises Modalities Cold Pack/Ice Massage,Electric Stimulation,Hot Packs, Infrared Therapy,Traction- Mechanical,Ultrasound Next Visit Focus/Plan Next Note Type Treatment Note Next Visit Plan gentle lumbar ROM LTR, pelvic tilt SLR, hip clamshell leg press gait training if jordin
--- NOTE | 2020-11-21 12:03 | PT.OTN ---
Current Diagnoses Spondylolisthesis, lumbar region (11/21/20) Spinal stenosis, lumbar region with neurogenic claudication (11/21/20) Physical Therapy Treatment Note PT-OP-A Visit Information Start: 11/06/20 12:10 Freq: Status: Active Protocol: Document 11/21/20 11:17 HH (Rec: 11/21/20 12:02 [id number]) Out-Patient Physical Therapy Visit Information Visit Information Visit Type Treatment Note Visit Start Time 11:20 Visit Stop Time 12:00 Total Visit Minutes 43 Visit Number 11/02 Number of BED MAKER Visits 0 PT-OP-B Current Condition Start: 11/06/20 12:10 Freq: Status: Active Protocol: Document 11/06/20 12:11 HH (Rec: 11/06/20 12:44 HH [email or web address]) Current Condition History of Current Condition Onset Date 10/08/20 Current Complaints post lumbar fusion, difficulty in mobility History of Current Condition Farnaz is a 70yo female s/p 4 weeks post lumbar fusion at L4 -L5 level with laminectomy from L3-L5 on 10/08/20 at [facility] by Surgeon Dr. Rodriguez. Pt has been having LBP with B hip pain, LE weakness and reduced sensation to lateral thighs for ~2 years. Her LE strength is coming back but she is currently using FWW for all activity. She c/o she still has LE weakness L>R, pain on L hip during WB activities and reduced sensation to touch at proximal lateral thigh and medial calf area. 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 PMH includes= ACDF at C5-C6. 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 Functional Limitations- Mobility/Gait FWW at all times, mobilizing within the house under supervision use of chair armrest, table support for sit <> stand Personal Factors Other Personal Factors That May Effect HTN Therapy/Recovery previous ACDF C5-C6 pt is very anxious with her rehab progress and movements. PT-OP-C Subjective Start: 11/06/20 12:10 Freq: Status: Active Protocol: Document 11/21/20 11:17 HH (Rec: 11/21/20 12:02 [id number]) OP-PT Subjective Patient Comments Patient Comments I got sore from yesterday by walking aroiund the house. I started cooking more often. Patient Reported Progress Improving PT-OP-D Balance Start: 11/06/20 12:10 Freq: Status: Active Protocol: Document 11/06/20 12:11 HH (Rec: 11/06/20 12:44 [email or web address]) Balance Tests Single Limb Standing Single Limb- Right 10s,20s. better stability, arms extended Single Limb- Left 8s, 10s. trendelenburg sign, arms extended, excessive movements. PT-OP-E Functional Tests Start: 11/06/20 12:10 Freq: Status: Active Protocol: Document 11/06/20 12:11 HH (Rec: 11/06/20 12:44 [email or web address]) Functional Tests 30 Second Sit to Stand Test Score 10 times, UE on table for push off and stability Comments neutral spine, hip hinge and squat pattern noted, WB mostly on RLE, PT-OP-F Manual Assessment Start: 11/06/20 12:10 Freq: Status: Active Protocol: Document 11/06/20 12:11 HH (Rec: 11/06/20 12:44 [email or web address]) Manual Assessments Soft Tissue Assessment Soft Tissue Mobility Assessment significant hypertonicty at piriformis, SIJ, glute med L>R mild tonicity at B QL L>R PT-OP-G Mobility & Gait Start: 11/06/20 12:10 Freq: Status: Active Protocol: Document 11/06/20 12:11 HH (Rec: 11/06/20 12:44 [email or web address]) OP Mobility Evaluation Bed Mobility Rolling log roll slowly Supine to and from Sit log roll first then SL to sit Transfers Sit to Stand pt uses UE support on table to stand up with neutral spine. OP Gait Assessment Assistive Devices Assistive Device Front Wheeled Walker Gait Deviations General Gait Pattern Antalgic,Decreased Stride Length,Decreased Feet Clearance,Lateral Trunk Lean Factors Limiting Gait Function Factors Limiting Gait Function Decreased Activity Tolerance, Decreased Sensation,Decreased Strength,Limited Range of Motion,Pain,Poor Balance Comments Gait Comments pt amb with a FWW, increased WB on RLE. PT-OP-H Neuro Start: 11/06/20 12:10 Freq: Status: Active Protocol: Document 11/06/20 12:11 (Rec: 11/06/20 12:44 [email or web address]) Sensation Evaluation Gross Sensation Gross Sensation Left LE Impaired Sensation Description Paresthesia,Numbness Dermatome Impairments L4 Comments Summary Comments reduced sensation to light tought at L proximal lateral thigh and R medial calf. WFL for pinpick and pressure Deep Tendon Reflex & Clonus Assessment Deep Tendon Reflex Bilateral Achilles Deep Tendon Reflex 2+ Normal Bilateral Patellar Deep Tendon Reflex 2+ Normal PT-OP-K Range of Motion Start: 11/06/20 12:10 Freq: Status: Active Protocol: Document 11/06/20 12:11 (Rec: 11/06/20 12:44 [email or web address]) Hip Goniometric Range of Motion Hip Right Active Straight Leg Raise 95 Comments discomfort at low back while lowering her LE from SLR position Left Active Hip ROM WFL Yes Straight Leg Raise 95 Comments discomfort at low back while lowering her LE from SLR position PT-OP-M Strength Start: 11/06/20 12:10 Freq: Status: Active Protocol: Document 11/06/20 12:11 (Rec: 11/06/20 12:44 [email or web address]) Hip Strength Hip Manual Muscle Testing Right Flexion (L2) 4 Good Extension (S1) 4 Good Abduction 4 Good Adduction 4 Good Comments discomfort at low back while lowering her LE from SLR position Left Flexion (L2) 4- Good- Extension (S1) 4- Good- Abduction 3 Fair Adduction 4- Good- Comments pain with hip abd discomfort at low back while lowering her LE from SLR position Knee Strength Knee Manual Muscle Testing Right Flexion (S2) 4+ Good+ Extension (L3) 4+ Good+ Left Flexion (S2) 4+ Good+ Extension (L3) 4+ Good+ Ankle/Foot Strength Ankle and Foot Manual Muscle Testing Right Dorsiflexion (L4) 4+ Good+ Plantarflexion (S1) 4+ Good+ Inversion 4+ Good+ Eversion (S1) 4+ Good+ Left Dorsiflexion (L4) 4+ Good+ Plantarflexion (S1) 4+ Good+ Inversion 4+ Good+ Eversion (S1) 4- Good- Comments pain at L hip and cocontraction with L hip abduction during ankle eversion Toe Strength Toe Manual Muscle Testing Right Great Toe Flexion 4+ Good+ Extension 4+ Good+ Left Great Toe Flexion 4+ Good+ Extension 4+ Good+ PT-OP-Q Treatments Start: 11/06/20 12:10 Freq: Status: Active Protocol: Document 11/21/20 11:17 (Rec: 11/21/20 12:02 [id number]) Cardio Equipment Recumbent Stepper (Sci-Fit) Duration (Minutes) 6 Resistance 3 Therapeutic Exercises Supine Exercises bridging Supine Exercise Name for HEP. Equipment Used yellow band at knees. Reps/Minutes 3 sec hold x 8 Comments cues on PPT, supine clamshell Side left Equipment Used yellow around knees Reps/Minutes 8 x 2 Comments yellow band today d/t fatigue today. LTR Reps/Minutes 8 x2 Standing Exercises squat Side bilateral Reps/Minutes 8 x2 Comments for HEP Gait Training Gait Activity SPC Device Used SPC Level of Assistance SBA Surface ground level Distance/Duration 50 ft x 2 Comments for offloading purpose 2 point reciprocal pattern Manual Therapy Treatment Soft Tissue Mobilization L hip Body Location glutes, piriformis Mobilization Type Myofascial Release,Sustained Pressure,Trigger Point Release Intensity/Depth Moderate Body Position Sidelying Comments most discomfort at glute med tendon and greater trochanter region Joint Mobilizations L hip traction Joint L hip Direction inferior Grade IV Body Position Supine Reps/Duration 10 sec x 5 PT-OP-R Modalities Start: 11/06/20 12:10 Freq: Status: Active Protocol: Document 11/11/20 11:17 (Rec: 11/11/20 12:14 [id number]) Hot Pack/Cold Pack Treatment Hot Pack Location L hip Patient Position Sidelying Treatment Duration (minutes) 10 Patient Tolerance Good PT-OP-T Assessment and Plan Start: 11/06/20 12:10 Freq: Status: Active Protocol: Document 11/21/20 11:17 (Rec: 11/21/20 12:02 [id number]) Physical Therapy Assessment Goals activity tolerance. 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 STG Duration 4 weeks Recyclable Materials Collector Goal (LTG) pt will be able to complete all some knitting machine operator helper such as dish washing, laundry cleaning etc with safe body mechanics. LTG Duration 8 weeks gait Impairment pt uses FWW for all mobility Short Term Goal (STG) pt will show improved stability and LE strength which allows her to mobilize with SPC/ less at home safely STG Duration 4 weeks Recyclable Materials Collector Goal (LTG) pt will show improved stability and LE strength which allows her to mobilize without any assistive device at home/ community safely. LTG Duration 8 weeks Owestry Impairment pt scores 56 on Owestry Short Term Goal (STG) pt will show improved overall mobility and strength to score <40 on Owestry STG Duration 4 weeks [facility] Goal (LTG) pt will show improved overall mobility and strength to score <20 on Owestry LTG Duration 8 weeks Assessment Summary Assessment pt reports of increased hip soreness and irritation today after being on her feet a lot yesterday. Spent time educating pt on load management to prevent setbacks . Also educated her to use SPC to off load her L hip if necessary. Pt shows good understanding of 2 point pattern. Physical Therapy Plan Frequency and Duration Frequency of Treatment 2x/Week Duration of Treatment 8 weeks Plan of Care Start Date 11/06/20 Plan of Care End Date 01/05/21 Therapeutic Interventions Therapeutic Interventions Aquatic Therapy,Balance Training,Gait Training,Home Exercise Program,Joint Mobilizations,Manual Therapy, Neuromuscular Re-education, Patient/Caregiver Education, Self-Care/Home Management,Soft Tissue Mobilization,Taping, Therapeutic Activities, Therapeutic Exercises Modalities Cold Pack/Ice Massage,Electric Stimulation,Hot Packs, Infrared Therapy,Traction- Mechanical,Ultrasound Next Visit Focus/Plan Next Note Type Treatment Note Next Visit Plan gentle lumbar ROM LTR, pelvic tilt SLR, hip clamshell leg press gait training if jordin
--- NOTE | 2020-11-25 12:19 | PT.OTN ---
Current Diagnoses Spondylolisthesis, lumbar region (11/25/20) Spinal stenosis, lumbar region with neurogenic claudication (11/25/20) Physical Therapy Treatment Note PT-OP-A Visit Information Start: 11/06/20 12:10 Freq: Status: Active Protocol: Document 11/25/20 11:21 HH (Rec: 11/25/20 12:18 HH [id number]) Out-Patient Physical Therapy Visit Information Visit Information Visit Type Treatment Note Visit Start Time 11:20 Visit Stop Time 12:13 Total Visit Minutes 53 Visit Number 12/02 Number of PACKAGER HAND Visits 0 PT-OP-B Current Condition Start: 11/06/20 12:10 Freq: Status: Active Protocol: Document 11/06/20 12:11 HH (Rec: 11/06/20 12:44 HH [email or web address]) Current Condition History of Current Condition Onset Date 10/08/20 Current Complaints post lumbar fusion, difficulty in mobility History of Current Condition Farnaz is a 70yo female s/p 4 weeks post lumbar fusion at L4 -L5 level with laminectomy from L3-L5 on 10/08/20 at [facility] by Surgeon Dr. Rodriguez. Pt has been having LBP with B hip pain, LE weakness and reduced sensation to lateral thighs for ~2 years. Her LE strength is coming back but she is currently using FWW for all activity. She c/o she still has LE weakness L>R, pain on L hip during WB activities and reduced sensation to touch at proximal lateral thigh and medial calf area. 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 PMH includes= ACDF at C5-C6. Prior Treatments and Tests ACDF at c5-C6 2019 Current Functional Impairments (Reported) Functional Limitations- ADL's able to complete self dressing , bed mobility supervision from for showering completes all loan review analyst. Functional Limitations- Mobility/Gait FWW at all times, mobilizing within the house under supervision use of chair armrest, table support for sit <> stand Personal Factors Other Personal Factors That May Effect HTN Therapy/Recovery previous ACDF C5-C6 pt is very anxious with her rehab progress and movements. PT-OP-C Subjective Start: 11/06/20 12:10 Freq: Status: Active Protocol: Document 11/25/20 11:21 HH (Rec: 11/25/20 12:18 [id number]) OP-PT Subjective Patient Comments Patient Comments It was a busy weekend because of the garage sale and family issues. I did use a cane during the weekend but i was still sore on wednesday since i was on my feet for a lot. My R hip is doing well now and has full sensation. Patient Reported Progress Improving PT-OP-D Balance Start: 11/06/20 12:10 Freq: Status: Active Protocol: Document 11/06/20 12:11 HH (Rec: 11/06/20 12:44 [email or web address]) Balance Tests Single Limb Standing Single Limb- Right 10s,20s. better stability, arms extended Single Limb- Left 8s, 10s. trendelenburg sign, arms extended, excessive movements. PT-OP-E Functional Tests Start: 11/06/20 12:10 Freq: Status: Active Protocol: Document 11/06/20 12:11 HH (Rec: 11/06/20 12:44 [email or web address]) Functional Tests 30 Second Sit to Stand Test Score 10 times, UE on table for push off and stability Comments neutral spine, hip hinge and squat pattern noted, WB mostly on RLE, PT-OP-F Manual Assessment Start: 11/06/20 12:10 Freq: Status: Active Protocol: Document 11/06/20 12:11 HH (Rec: 11/06/20 12:44 [email or web address]) Manual Assessments Soft Tissue Assessment Soft Tissue Mobility Assessment significant hypertonicty at piriformis, SIJ, glute med L>R mild tonicity at B QL L>R PT-OP-G Mobility & Gait Start: 11/06/20 12:10 Freq: Status: Active Protocol: Document 11/06/20 12:11 HH (Rec: 11/06/20 12:44 [email or web address]) OP Mobility Evaluation Bed Mobility Rolling log roll slowly Supine to and from Sit log roll first then SL to sit Transfers Sit to Stand pt uses UE support on table to stand up with neutral spine. OP Gait Assessment Assistive Devices Assistive Device Front Wheeled Walker Gait Deviations General Gait Pattern Antalgic,Decreased Stride Length,Decreased Feet Clearance,Lateral Trunk Lean Factors Limiting Gait Function Factors Limiting Gait Function Decreased Activity Tolerance, Decreased Sensation,Decreased Strength,Limited Range of Motion,Pain,Poor Balance Comments Gait Comments pt amb with a FWW, increased WB on RLE. PT-OP-H Neuro Start: 11/06/20 12:10 Freq: Status: Active Protocol: Document 11/06/20 12:11 HH (Rec: 11/06/20 12:44 HH [email or web address]) Sensation Evaluation Gross Sensation Gross Sensation Left LE Impaired Sensation Description Paresthesia,Numbness Dermatome Impairments L4 Comments Summary Comments reduced sensation to light tought at L proximal lateral thigh and R medial calf. WFL for pinpick and pressure Deep Tendon Reflex & Clonus Assessment Deep Tendon Reflex Bilateral Achilles Deep Tendon Reflex 2+ Normal Bilateral Patellar Deep Tendon Reflex 2+ Normal PT-OP-K Range of Motion Start: 11/06/20 12:10 Freq: Status: Active Protocol: Document 11/06/20 12:11 HH (Rec: 11/06/20 12:44 HH [email or web address]) Hip Goniometric Range of Motion Hip Right Active Straight Leg Raise 95 Comments discomfort at low back while lowering her LE from SLR position Left Active Hip ROM WFL Yes Straight Leg Raise 95 Comments discomfort at low back while lowering her LE from SLR position PT-OP-M Strength Start: 11/06/20 12:10 Freq: Status: Active Protocol: Document 11/06/20 12:11 HH (Rec: 11/06/20 12:44 [email or web address]) Hip Strength Hip Manual Muscle Testing Right Flexion (L2) 4 Good Extension (S1) 4 Good Abduction 4 Good Adduction 4 Good Comments discomfort at low back while lowering her LE from SLR position Left Flexion (L2) 4- Good- Extension (S1) 4- Good- Abduction 3 Fair Adduction 4- Good- Comments pain with hip abd discomfort at low back while lowering her LE from SLR position Knee Strength Knee Manual Muscle Testing Right Flexion (S2) 4+ Good+ Extension (L3) 4+ Good+ Left Flexion (S2) 4+ Good+ Extension (L3) 4+ Good+ Ankle/Foot Strength Ankle and Foot Manual Muscle Testing Right Dorsiflexion (L4) 4+ Good+ Plantarflexion (S1) 4+ Good+ Inversion 4+ Good+ Eversion (S1) 4+ Good+ Left Dorsiflexion (L4) 4+ Good+ Plantarflexion (S1) 4+ Good+ Inversion 4+ Good+ Eversion (S1) 4- Good- Comments pain at L hip and cocontraction with L hip abduction during ankle eversion Toe Strength Toe Manual Muscle Testing Right Great Toe Flexion 4+ Good+ Extension 4+ Good+ Left Great Toe Flexion 4+ Good+ Extension 4+ Good+ PT-OP-Q Treatments Start: 11/06/20 12:10 Freq: Status: Active Protocol: Document 11/25/20 11:21 HH (Rec: 11/25/20 12:18 [id number]) Cardio Equipment Recumbent Stepper (Sci-Fit) Duration (Minutes) 6 Resistance 3 Seat Position 12 Gym Equipment Shuttle Recovery SL squat Resistance #37 Shuttle Recovery Platform Stable Reps/Time 12 x 2, focused on knee alignment. Therapeutic Exercises Supine Exercises bridging Supine Exercise Name for HEP. Equipment Used yellow band at knees. Reps/Minutes 3 sec hold x 8 Comments cues on PPT, supine clamshell Side left Equipment Used yellow around knees Reps/Minutes 8 x 2 Comments yellow band today d/t fatigue today. figure 4 stretch Side left Reps/Minutes 15 sec x 5 Comments stretching pain noted at greater trochanter region Standing Exercises squat Side bilateral Reps/Minutes 8 x2 Comments cues on knee alignment Gait Training Gait Activity w/o AD Device Used no Level of Assistance SBA Surface ground level Distance/Duration 20 ft x 3 Comments cues on keeping her foot in neutral position to prevent knee valgus moment. Manual Therapy Treatment Soft Tissue Mobilization L hip Body Location glutes, piriformis Mobilization Type Myofascial Release,Sustained Pressure,Trigger Point Release Intensity/Depth Moderate Body Position Sidelying Comments most discomfort at glute med tendon and greater trochanter region Joint Mobilizations L hip traction Joint L hip Direction inferior Grade IV Body Position Supine Reps/Duration 10 sec x 5 PT-OP-R Modalities Start: 11/06/20 12:10 Freq: Status: Active Protocol: Document 11/11/20 11:17 HH (Rec: 11/11/20 12:14 [id number]) Hot Pack/Cold Pack Treatment Hot Pack Location L hip Patient Position Sidelying Treatment Duration (minutes) 10 Patient Tolerance Good PT-OP-T Assessment and Plan Start: 11/06/20 12:10 Freq: Status: Active Protocol: Document 11/25/20 11:21 HH (Rec: 11/25/20 12:18 [id number]) Physical Therapy Assessment Rehab Potential Rehabilitation Potential Good Evaluation Complexity Number of Personal Factors/Comorbidities 1-2 Number of Body Systems Impaired 1-2 Clinical Presentation at Evaluation Stable Impairments Impairments Activity Tolerance,Balance, Functional Activities, Functional Mobility,Gait,Pain, Posture,ROM,Sensation,Soft Tissue Mobility,Strength, Transfers Goals activity tolerance. Impairment pt needs supervision from for ADLs, assistance for loan review analyst Short Term Goal (STG) pt will be able to complete all ADLs (toileting, showering , bed mobility, etc) indepedently without supervision/ assistance. STG Duration 4 weeks Fpc Goal (LTG) pt will be able to complete all some loan review analyst such as dish washing, laundry cleaning etc with safe body mechanics. LTG Duration 8 weeks gait Impairment pt uses FWW for all mobility Short Term Goal (STG) pt will show improved stability and LE strength which allows her to mobilize with SPC/ less at home safely STG Duration 4 weeks Fpc Goal (LTG) pt will show improved stability and LE strength which allows her to mobilize without any assistive device at home/ community safely. LTG Duration 8 weeks Owestry Impairment pt scores 56 on Owestry Short Term Goal (STG) pt will show improved overall mobility and strength to score <40 on Owestry STG Duration 4 weeks Fpc Goal (LTG) pt will show improved overall mobility and strength to score <20 on Owestry LTG Duration 8 weeks Assessment Summary Assessment pt stated she had a stressful weekend and being on her feet often. Reminded her to be mindful of load management and use of AD as needed. Pt still has very limited hip ER which causes her to walk with toe in gait and knee valgus during STS. Educated pt to focus on hip ER stretch, ER strengtehning. Physical Therapy Plan Frequency and Duration Frequency of Treatment 2x/Week Duration of Treatment 8 weeks Plan of Care Start Date 11/06/20 Plan of Care End Date 01/05/21 Therapeutic Interventions Therapeutic Interventions Aquatic Therapy,Balance Training,Gait Training,Home Exercise Program,Joint Mobilizations,Manual Therapy, Neuromuscular Re-education, Patient/Caregiver Education, Self-Care/Home Management,Soft Tissue Mobilization,Taping, Therapeutic Activities, Therapeutic Exercises Modalities Cold Pack/Ice Massage,Electric Stimulation,Hot Packs, Infrared Therapy,Traction- Mechanical,Ultrasound Next Visit Focus/Plan Next Note Type Treatment Note Next Visit Plan gentle lumbar ROM LTR, pelvic tilt SLR, hip clamshell leg press gait training if jordin
--- NOTE | 2020-12-05 12:13 | PT.OTN ---
Current Diagnoses Spondylolisthesis, lumbar region (12/05/20) Spinal stenosis, lumbar region with neurogenic claudication (12/05/20) Physical Therapy Treatment Note PT-OP-A Visit Information Start: 11/06/20 12:10 Freq: Status: Active Protocol: Document 12/05/20 10:34 HH (Rec: 12/05/20 12:12 HH [id number]) Out-Patient Physical Therapy Visit Information Visit Information Visit Type Treatment Note Visit Start Time 11:17 Visit Stop Time 12:00 Total Visit Minutes 43 Visit Number 01/02 Number of POWDER COATER Visits 0 PT-OP-B Current Condition Start: 11/06/20 12:10 Freq: Status: Active Protocol: Document 11/06/20 12:11 HH (Rec: 11/06/20 12:44 HH [email or web address]) Current Condition History of Current Condition Onset Date 10/08/20 Current Complaints post lumbar fusion, difficulty in mobility History of Current Condition Farnaz is a 70yo female s/p 4 weeks post lumbar fusion at L4 -L5 level with laminectomy from L3-L5 on 10/08/20 at [facility] by Surgeon Dr. Rodriguez. Pt has been having LBP with B hip pain, LE weakness and reduced sensation to lateral thighs for ~2 years. Her LE strength is coming back but she is currently using FWW for all activity. She c/o she still has LE weakness L>R, pain on L hip during WB activities and reduced sensation to touch at proximal lateral thigh and medial calf area. She would like to be able to walk without walker and complete pan washer without discomfort. PMH includes= ACDF at C5-C6. Prior Treatments and Tests ACDF at c5-C6 2019 Current Functional Impairments (Reported) Functional Limitations- ADL's able to complete self dressing , bed mobility supervision from for showering completes all pan washer. Functional Limitations- Mobility/Gait FWW at all times, mobilizing within the house under supervision use of chair armrest, table support for sit <> stand Personal Factors Other Personal Factors That May Effect HTN Therapy/Recovery previous ACDF C5-C6 pt is very anxious with her rehab progress and movements. PT-OP-C Subjective Start: 11/06/20 12:10 Freq: Status: Active Protocol: Document 12/05/20 10:34 HH (Rec: 12/05/20 12:12 HH [id number]) OP-PT Subjective Patient Comments Patient Comments I think jarad been aggravating my nerve/ hip more and i had to lay down more often to ease the pain. I dont understand why i still have pain. Patient Reported Progress Same PT-OP-D Balance Start: 11/06/20 12:10 Freq: Status: Active Protocol: Document 11/06/20 12:11 HH (Rec: 11/06/20 12:44 [email or web address]) Balance Tests Single Limb Standing Single Limb- Right 10s,20s. better stability, arms extended Single Limb- Left 8s, 10s. trendelenburg sign, arms extended, excessive movements. PT-OP-E Functional Tests Start: 11/06/20 12:10 Freq: Status: Active Protocol: Document 11/06/20 12:11 (Rec: 11/06/20 12:44 [email or web address]) Functional Tests 30 Second Sit to Stand Test Score 10 times, UE on table for push off and stability Comments neutral spine, hip hinge and squat pattern noted, WB mostly on RLE, PT-OP-F Manual Assessment Start: 11/06/20 12:10 Freq: Status: Active Protocol: Document 11/06/20 12:11 HH (Rec: 11/06/20 12:44 [email or web address]) Manual Assessments Soft Tissue Assessment Soft Tissue Mobility Assessment significant hypertonicty at piriformis, SIJ, glute med L>R mild tonicity at B QL L>R PT-OP-G Mobility & Gait Start: 11/06/20 12:10 Freq: Status: Active Protocol: Document 11/06/20 12:11 (Rec: 11/06/20 12:44 [email or web address]) OP Mobility Evaluation Bed Mobility Rolling log roll slowly Supine to and from Sit log roll first then SL to sit Transfers Sit to Stand pt uses UE support on table to stand up with neutral spine. OP Gait Assessment Assistive Devices Assistive Device Front Wheeled Walker Gait Deviations General Gait Pattern Antalgic,Decreased Stride Length,Decreased Feet Clearance,Lateral Trunk Lean Factors Limiting Gait Function Factors Limiting Gait Function Decreased Activity Tolerance, Decreased Sensation,Decreased Strength,Limited Range of Motion,Pain,Poor Balance Comments Gait Comments pt amb with a FWW, increased WB on RLE. PT-OP-H Neuro Start: 11/06/20 12:10 Freq: Status: Active Protocol: Document 11/06/20 12:11 HH (Rec: 11/06/20 12:44 [email or web address]) Sensation Evaluation Gross Sensation Gross Sensation Left LE Impaired Sensation Description Paresthesia,Numbness Dermatome Impairments L4 Comments Summary Comments reduced sensation to light tought at L proximal lateral thigh and R medial calf. WFL for pinpick and pressure Deep Tendon Reflex & Clonus Assessment Deep Tendon Reflex Bilateral Achilles Deep Tendon Reflex 2+ Normal Bilateral Patellar Deep Tendon Reflex 2+ Normal PT-OP-K Range of Motion Start: 11/06/20 12:10 Freq: Status: Active Protocol: Document 11/06/20 12:11 HH (Rec: 11/06/20 12:44 [email or web address]) Hip Goniometric Range of Motion Hip Right Active Straight Leg Raise 95 Comments discomfort at low back while lowering her LE from SLR position Left Active Hip ROM WFL Yes Straight Leg Raise 95 Comments discomfort at low back while lowering her LE from SLR position PT-OP-M Strength Start: 11/06/20 12:10 Freq: Status: Active Protocol: Document 11/06/20 12:11 HH (Rec: 11/06/20 12:44 [email or web address]) Hip Strength Hip Manual Muscle Testing Right Flexion (L2) 4 Good Extension (S1) 4 Good Abduction 4 Good Adduction 4 Good Comments discomfort at low back while lowering her LE from SLR position Left Flexion (L2) 4- Good- Extension (S1) 4- Good- Abduction 3 Fair Adduction 4- Good- Comments pain with hip abd discomfort at low back while lowering her LE from SLR position Knee Strength Knee Manual Muscle Testing Right Flexion (S2) 4+ Good+ Extension (L3) 4+ Good+ Left Flexion (S2) 4+ Good+ Extension (L3) 4+ Good+ Ankle/Foot Strength Ankle and Foot Manual Muscle Testing Right Dorsiflexion (L4) 4+ Good+ Plantarflexion (S1) 4+ Good+ Inversion 4+ Good+ Eversion (S1) 4+ Good+ Left Dorsiflexion (L4) 4+ Good+ Plantarflexion (S1) 4+ Good+ Inversion 4+ Good+ Eversion (S1) 4- Good- Comments pain at L hip and cocontraction with L hip abduction during ankle eversion Toe Strength Toe Manual Muscle Testing Right Great Toe Flexion 4+ Good+ Extension 4+ Good+ Left Great Toe Flexion 4+ Good+ Extension 4+ Good+ PT-OP-Q Treatments Start: 11/06/20 12:10 Freq: Status: Active Protocol: Document 12/05/20 10:34 HH (Rec: 12/05/20 12:12 [id number]) Cardio Equipment Recumbent Stepper (Sci-Fit) Duration (Minutes) 6 Resistance 3 Seat Position 12 Manual Therapy Treatment Soft Tissue Mobilization L hip Body Location glutes, piriformis Mobilization Type Myofascial Release,Sustained Pressure,Trigger Point Release Intensity/Depth Moderate Body Position Sidelying Comments most discomfort at glute med tendon and greater trochanter region Self-Care/Home Management Treatment Education Patient Education Body Mechanics,Home Exercise Program,Joint Protection,Pain Management,Posture,Safety Other Education educated pt regarding her expectation of post surgical outcome which involves with inevitable pain with movements . Reminded pt to be patient with her progress. Went through all precautions and recommended to use SPC for walking/ pillow during sleep for pain and load management. PT-OP-R Modalities Start: 11/06/20 12:10 Freq: Status: Active Protocol: Document 11/11/20 11:17 HH (Rec: 11/11/20 12:14 [id number]) Hot Pack/Cold Pack Treatment Hot Pack Location L hip Patient Position Sidelying Treatment Duration (minutes) 10 Patient Tolerance Good PT-OP-T Assessment and Plan Start: 11/06/20 12:10 Freq: Status: Active Protocol: Document 12/05/20 10:34 HH (Rec: 12/05/20 12:12 [id number]) Physical Therapy Assessment Goals activity tolerance. Impairment pt needs supervision from for ADLs, assistance for pan washer Short Term Goal (STG) pt will be able to complete all ADLs (toileting, showering , bed mobility, etc) indepedently without supervision/ assistance. STG Duration 4 weeks Fpc Goal (LTG) pt will be able to complete all some pan washer such as dish washing, laundry cleaning etc with safe body mechanics. LTG Duration 8 weeks gait Impairment pt uses FWW for all mobility Short Term Goal (STG) pt will show improved stability and LE strength which allows her to mobilize with SPC/ less at home safely STG Duration 4 weeks Fpc Goal (LTG) pt will show improved stability and LE strength which allows her to mobilize without any assistive device at home/ community safely. LTG Duration 8 weeks Owestry Impairment pt scores 56 on Owestry Short Term Goal (STG) pt will show improved overall mobility and strength to score <40 on Owestry STG Duration 4 weeks Fpc Goal (LTG) pt will show improved overall mobility and strength to score <20 on Owestry LTG Duration 8 weeks Assessment Summary Assessment pt came in today and reports she thinks participating PT is too soon for her surgery and she is very anxious with her residual pain and discomfort. Spent whole session for pain education and outcome expectation from her surgery. Pt decided to postpone her therapy after she see her surgeon to allow recovery time. I will put this account on hold at this point Physical Therapy Plan Frequency and Duration Frequency of Treatment 2x/Week Duration of Treatment 8 weeks Plan of Care Start Date 11/06/20 Plan of Care End Date 01/05/21 Therapeutic Interventions Therapeutic Interventions Aquatic Therapy,Balance Training,Gait Training,Home Exercise Program,Joint Mobilizations,Manual Therapy, Neuromuscular Re-education, Patient/Caregiver Education, Self-Care/Home Management,Soft Tissue Mobilization,Taping, Therapeutic Activities, Therapeutic Exercises Modalities Cold Pack/Ice Massage,Electric Stimulation,Hot Packs, Infrared Therapy,Traction- Mechanical,Ultrasound Hold Physical Therapy Reason For Hold see assessment. Next Visit Focus/Plan Next Note Type Treatment Note Next Visit Plan gentle lumbar ROM LTR, pelvic tilt SLR, hip clamshell leg press gait training if jordin
--- NOTE | 2020-12-05 12:51 | PT.OTN ---
Current Diagnoses Spondylolisthesis, lumbar region (12/05/20) Spinal stenosis, lumbar region with neurogenic claudication (12/05/20) Physical Therapy Treatment Note PT-OP-A Visit Information Start: 11/06/20 12:10 Freq: Status: Active Protocol: Document 12/05/20 10:34 HH (Rec: 12/05/20 12:12 HH [id number]) Out-Patient Physical Therapy Visit Information Visit Information Visit Type Treatment Note Visit Start Time 11:17 Visit Stop Time 12:00 Total Visit Minutes 43 Visit Number 01/02 Number of [employer] Visits 0 PT-OP-B Current Condition Start: 11/06/20 12:10 Freq: Status: Active Protocol: Document 11/06/20 12:11 HH (Rec: 11/06/20 12:44 HH [email or web address]) Current Condition History of Current Condition Onset Date 10/08/20 Current Complaints post lumbar fusion, difficulty in mobility History of Current Condition Farnaz is a 70yo female s/p 4 weeks post lumbar fusion at L4 -L5 level with laminectomy from L3-L5 on 10/08/20 at [facility] by Surgeon Dr. Rodriguez. Pt has been having LBP with B hip pain, LE weakness and reduced sensation to lateral thighs for ~2 years. Her LE strength is coming back but she is currently using FWW for all activity. She c/o she still has LE weakness L>R, pain on L hip during WB activities and reduced sensation to touch at proximal lateral thigh and medial calf area. 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 PMH includes= ACDF at C5-C6. Prior Treatments and Tests ACDF at c5-C6 2019 Current Functional Impairments (Reported) Functional Limitations- ADL's able to complete self dressing , bed mobility supervision from for showering completes all passenger relations representative. Functional Limitations- Mobility/Gait FWW at all times, mobilizing within the house under supervision use of chair armrest, table support for sit <> stand Personal Factors Other Personal Factors That May Effect HTN Therapy/Recovery previous ACDF C5-C6 pt is very anxious with her rehab progress and movements. PT-OP-C Subjective Start: 11/06/20 12:10 Freq: Status: Active Protocol: Document 12/05/20 10:34 HH (Rec: 12/05/20 12:12 HH [id number]) OP-PT Subjective Patient Comments Patient Comments I think jarad been aggravating my nerve/ hip more and i had to lay down more often to ease the pain. I dont understand why i still have pain. Patient Reported Progress Same PT-OP-D Balance Start: 11/06/20 12:10 Freq: Status: Active Protocol: Document 11/06/20 12:11 HH (Rec: 11/06/20 12:44 [email or web address]) Balance Tests Single Limb Standing Single Limb- Right 10s,20s. better stability, arms extended Single Limb- Left 8s, 10s. trendelenburg sign, arms extended, excessive movements. PT-OP-E Functional Tests Start: 11/06/20 12:10 Freq: Status: Active Protocol: Document 11/06/20 12:11 (Rec: 11/06/20 12:44 [email or web address]) Functional Tests 30 Second Sit to Stand Test Score 10 times, UE on table for push off and stability Comments neutral spine, hip hinge and squat pattern noted, WB mostly on RLE, PT-OP-F Manual Assessment Start: 11/06/20 12:10 Freq: Status: Active Protocol: Document 11/06/20 12:11 HH (Rec: 11/06/20 12:44 [email or web address]) Manual Assessments Soft Tissue Assessment Soft Tissue Mobility Assessment significant hypertonicty at piriformis, SIJ, glute med L>R mild tonicity at B QL L>R PT-OP-G Mobility & Gait Start: 11/06/20 12:10 Freq: Status: Active Protocol: Document 11/06/20 12:11 (Rec: 11/06/20 12:44 [email or web address]) OP Mobility Evaluation Bed Mobility Rolling log roll slowly Supine to and from Sit log roll first then SL to sit Transfers Sit to Stand pt uses UE support on table to stand up with neutral spine. OP Gait Assessment Assistive Devices Assistive Device Front Wheeled Walker Gait Deviations General Gait Pattern Antalgic,Decreased Stride Length,Decreased Feet Clearance,Lateral Trunk Lean Factors Limiting Gait Function Factors Limiting Gait Function Decreased Activity Tolerance, Decreased Sensation,Decreased Strength,Limited Range of Motion,Pain,Poor Balance Comments Gait Comments pt amb with a FWW, increased WB on RLE. PT-OP-H Neuro Start: 11/06/20 12:10 Freq: Status: Active Protocol: Document 11/06/20 12:11 HH (Rec: 11/06/20 12:44 [email or web address]) Sensation Evaluation Gross Sensation Gross Sensation Left LE Impaired Sensation Description Paresthesia,Numbness Dermatome Impairments L4 Comments Summary Comments reduced sensation to light tought at L proximal lateral thigh and R medial calf. WFL for pinpick and pressure Deep Tendon Reflex & Clonus Assessment Deep Tendon Reflex Bilateral Achilles Deep Tendon Reflex 2+ Normal Bilateral Patellar Deep Tendon Reflex 2+ Normal PT-OP-K Range of Motion Start: 11/06/20 12:10 Freq: Status: Active Protocol: Document 11/06/20 12:11 HH (Rec: 11/06/20 12:44 [email or web address]) Hip Goniometric Range of Motion Hip Right Active Straight Leg Raise 95 Comments discomfort at low back while lowering her LE from SLR position Left Active Hip ROM WFL Yes Straight Leg Raise 95 Comments discomfort at low back while lowering her LE from SLR position PT-OP-M Strength Start: 11/06/20 12:10 Freq: Status: Active Protocol: Document 11/06/20 12:11 HH (Rec: 11/06/20 12:44 [email or web address]) Hip Strength Hip Manual Muscle Testing Right Flexion (L2) 4 Good Extension (S1) 4 Good Abduction 4 Good Adduction 4 Good Comments discomfort at low back while lowering her LE from SLR position Left Flexion (L2) 4- Good- Extension (S1) 4- Good- Abduction 3 Fair Adduction 4- Good- Comments pain with hip abd discomfort at low back while lowering her LE from SLR position Knee Strength Knee Manual Muscle Testing Right Flexion (S2) 4+ Good+ Extension (L3) 4+ Good+ Left Flexion (S2) 4+ Good+ Extension (L3) 4+ Good+ Ankle/Foot Strength Ankle and Foot Manual Muscle Testing Right Dorsiflexion (L4) 4+ Good+ Plantarflexion (S1) 4+ Good+ Inversion 4+ Good+ Eversion (S1) 4+ Good+ Left Dorsiflexion (L4) 4+ Good+ Plantarflexion (S1) 4+ Good+ Inversion 4+ Good+ Eversion (S1) 4- Good- Comments pain at L hip and cocontraction with L hip abduction during ankle eversion Toe Strength Toe Manual Muscle Testing Right Great Toe Flexion 4+ Good+ Extension 4+ Good+ Left Great Toe Flexion 4+ Good+ Extension 4+ Good+ PT-OP-Q Treatments Start: 11/06/20 12:10 Freq: Status: Active Protocol: Document 12/05/20 10:34 HH (Rec: 12/05/20 12:12 [id number]) Cardio Equipment Recumbent Stepper (Sci-Fit) Duration (Minutes) 6 Resistance 3 Seat Position 12 Manual Therapy Treatment Soft Tissue Mobilization L hip Body Location glutes, piriformis Mobilization Type Myofascial Release,Sustained Pressure,Trigger Point Release Intensity/Depth Moderate Body Position Sidelying Comments most discomfort at glute med tendon and greater trochanter region Self-Care/Home Management Treatment Education Patient Education Body Mechanics,Home Exercise Program,Joint Protection,Pain Management,Posture,Safety Other Education educated pt regarding her expectation of post surgical outcome which involves with inevitable pain with movements . Reminded pt to be patient with her progress. Went through all precautions and recommended to use SPC for walking/ pillow during sleep for pain and load management. PT-OP-R Modalities Start: 11/06/20 12:10 Freq: Status: Active Protocol: Document 11/11/20 11:17 HH (Rec: 11/11/20 12:14 [id number]) Hot Pack/Cold Pack Treatment Hot Pack Location L hip Patient Position Sidelying Treatment Duration (minutes) 10 Patient Tolerance Good PT-OP-T Assessment and Plan Start: 11/06/20 12:10 Freq: Status: Active Protocol: Document 12/05/20 10:34 HH (Rec: 12/05/20 12:12 [id number]) Physical Therapy Assessment Goals activity tolerance. Impairment pt needs supervision from for ADLs, assistance for passenger relations representative Short Term Goal (STG) pt will be able to complete all ADLs (toileting, showering , bed mobility, etc) indepedently without supervision/ assistance. STG Duration 4 weeks Long-Term Goal (LTG) pt will be able to complete all some passenger relations representative such as dish washing, laundry cleaning etc with safe body mechanics. LTG Duration 8 weeks gait Impairment pt uses FWW for all mobility Short Term Goal (STG) pt will show improved stability and LE strength which allows her to mobilize with SPC/ less at home safely STG Duration 4 weeks Long-Term Goal (LTG) pt will show improved stability and LE strength which allows her to mobilize without any assistive device at home/ community safely. LTG Duration 8 weeks Owestry Impairment pt scores 56 on Owestry Short Term Goal (STG) pt will show improved overall mobility and strength to score <40 on Owestry STG Duration 4 weeks Long-Term Goal (LTG) pt will show improved overall mobility and strength to score <20 on Owestry LTG Duration 8 weeks Assessment Summary Assessment pt came in today and reports she thinks participating PT is too soon for her surgery and she is very anxious with her residual pain and discomfort. Spent whole session for pain education and outcome expectation from her surgery. Pt decided to postpone her therapy after she see her surgeon to allow recovery time. I will discharge this account at this point and pt will need to get new referral when shes ready again. Physical Therapy Plan Frequency and Duration Frequency of Treatment 2x/Week Duration of Treatment 8 weeks Plan of Care Start Date 11/06/20 Plan of Care End Date 01/05/21 Therapeutic Interventions Therapeutic Interventions Aquatic Therapy,Balance Training,Gait Training,Home Exercise Program,Joint Mobilizations,Manual Therapy, Neuromuscular Re-education, Patient/Caregiver Education, Self-Care/Home Management,Soft Tissue Mobilization,Taping, Therapeutic Activities, Therapeutic Exercises Modalities Cold Pack/Ice Massage,Electric Stimulation,Hot Packs, Infrared Therapy,Traction- Mechanical,Ultrasound Hold Physical Therapy Reason For Hold see assessment. Next Visit Focus/Plan Next Note Type Treatment Note Next Visit Plan gentle lumbar ROM LTR, pelvic tilt SLR, hip clamshell leg press gait training if jordin
== END 2020-12-09 10:29 | disposition home or self-care (01) ==
LOC: PHYS 11:15
PROVIDERS: Family Provider Family Medicine; PCP Family Medicine; Referring Provider Neurological Surgery; Visit Provider Neurological Surgery
DX: M48.062 Spinal stenosis, lumbar region with neurogenic claudication (principal); M43.16 Spondylolisthesis, lumbar region
CPT/HCPCS: 97110; 97116; 97140; 97161; 97535

== ENCOUNTER → 2020-12-20 16:23 | Outpatient (CLI) | payer MEDICARE, OTHER, SELFPAY ==
[2020-12-20 17:58] LABS: COVID19 -Nasal RAPID Negative (Negative)
== END ==
PROVIDERS: Family Provider Family Medicine; PCP Family Medicine; Referring Provider Family Medicine; Visit Provider Family Medicine
DX: R05 Cough (principal); Z20.822 Contact with and (suspected) exposure to COVID-19
CPT/HCPCS: 87635

== ENCOUNTER → 2021-01-01 12:33 | Outpatient (CLI) | payer MEDICARE, OTHER, SELFPAY ==
--- NOTE | 2021-01-01 12:37 | DI.RAD.S_ITS ---
PROCEDURE: XR LUMBAR SPINE 2-3V INDICATIONS: LUMBAR POST SURGICAL TECHNIQUE: 3 views of the lumbar spine were acquired. COMPARISON: [facility], CR, XR LUMBAR SPINE 1V, 10/18/2020, 11:31. FINDINGS: Bones: No definite acute fracture seen. Postsurgical changes related to L4-L5 posterior spinal fixation with pedicle day and paraspinal rods. Interbody cage graft also noted. Hardware appears intact. Expected alignment. Grade 1 retrolisthesis of L1 on L2, L2 on L3. Trace anterolisthesis of L3 on L4. Trace residual anterolisthesis of L4 on L5. Moderate to severe diffuse lumbar disc space narrowing. Levocurvature Soft tissues: Overlying bowel gas pattern is normal. No suspicious soft tissue calcifications. IMPRESSION: Chronic spondylitic and postsurgical changes as above. Similar appearance to prior study from 10/18/20. Dictated by: Reinaldo Issa M.D. on 01/01/2021 at 13:38 Approved by: Reinaldo Issa M.D. on 01/01/2021 at 13:42
== END ==
PROVIDERS: Family Provider Family Medicine; PCP Family Medicine; Referring Provider Neurological Surgery; Visit Provider Neurological Surgery
DX: M43.16 Spondylolisthesis, lumbar region (principal); Z98.1 Arthrodesis status
CPT/HCPCS: 72100

== ENCOUNTER → 2021-04-03 12:32 | Outpatient (CLI) | payer MEDICARE, OTHER, SELFPAY ==
--- NOTE | 2021-04-03 12:35 | DI.RAD.S_ITS ---
PROCEDURE: XR LUMBAR SPINE 1V INDICATIONS: ARTHRODESIS STATUS TECHNIQUE: 1 view of the lumbar spine were acquired. COMPARISON: [facility], CR, XR LUMBAR SPINE 2-3V, 01/01/2021, 12:33. [facility], CR, XR LUMBAR SPINE 1V, 10/18/2020, 11:31. FINDINGS: Bones: 5 [id number] vertebrae are present. There is grade 1 anterolisthesis of L3 on L4 and L4 on L5. Grade 1 retrolisthesis of L1 on L2. Discectomy and posterior fusion at L4-L5. Degenerative disc disease, [id number] at L1-L2, moderate at L2-L3, L3-L4 and L5-S1. There is severe facet arthropathy at L1-L2 and L2-L3. No vertebral body compression fractures. No suspicious bony lesions. Soft tissues: Overlying bowel gas pattern is normal. No suspicious soft tissue calcifications. IMPRESSION: 1. Grade 1 anterolisthesis at L3-L4 and L4-L5. 2. Retrolisthesis of L1 on L2. 3. Degenerative disc disease and facet arthropathy in lumbar spine. Dictated by: Freddy Barron M.D. on 04/03/2021 at 19:18 Approved by: Freddy Barron M.D. on 04/03/2021 at 19:49
--- NOTE | 2021-04-03 12:35 | DI.RAD.S_ITS ---
PROCEDURE: XR CERVICAL SPINE 1V INDICATIONS: ARTHRODESIS STATUS TECHNIQUE: Single lateral view of the cervical spine acquired. COMPARISON: [facility], CR, XR CERVICAL SPINE 2V OR 3V, 06/15/2020, 13:48. FINDINGS: Bones: Again noted is prior anterior fusion of C5 and C6 vertebral bodies. Grade 1 anterolisthesis at C2-3 and C3-4 levels are again seen unchanged from prior study. No fractures or dislocations to the C7-T1 level. No gross hardware loosening or failure. Degenerative endplate changes are seen at C4-5 and C6-7 levels. No suspicious bony lesions. Soft tissues: No prevertebral soft tissue swelling. IMPRESSION: Stable cervical spine alignment. No gross hardware complication. No fracture or dislocation. Dictated by: Manny Lux M.D. on 04/03/2021 at 14:01 Approved by: Manny Lux M.D. on 04/03/2021 at 14:06
== END ==
PROVIDERS: Family Provider Family Medicine; PCP Family Medicine; Referring Provider Neurological Surgery; Visit Provider Neurological Surgery
DX: M43.16 Spondylolisthesis, lumbar region (principal); M47.22 Other spondylosis with radiculopathy, cervical region; M51.36 Other intervertebral disc degeneration, lumbar region; M47.816 Spondylosis without myelopathy or radiculopathy, lumbar region; M51.37 Other intervertebral disc degeneration, lumbosacral region; Z98.1 Arthrodesis status
CPT/HCPCS: 72020

== ENCOUNTER → 2021-04-09 07:50 | Outpatient (CLI) | payer MEDICARE, OTHER, SELFPAY ==
[2021-04-09 08:43] LABS: Cholesterol 178 mg/dL (140-199); HDL Cholesterol 64 mg/dL (40-60); LDL Cholesterol Calculated 93 mg/dL (<100); Triglycerides 105 mg/dL (35-150)
== END ==
PROVIDERS: Family Provider Family Medicine; PCP Family Medicine; Referring Provider Family Medicine; Visit Provider Family Medicine
DX: E78.5 Hyperlipidemia, unspecified (principal)
CPT/HCPCS: 36415; 80061

== ENCOUNTER → 2021-07-02 12:06 | Outpatient (CLI) | payer MEDICARE, OTHER, SELFPAY ==
--- NOTE | 2021-07-02 | DI.RAD.S_ITS ---
PROCEDURE: XR LUMBAR SPINE 1V INDICATIONS: Spondylolisthesis, lumbar region TECHNIQUE: Single lateral view of the lumbar spine were acquired. COMPARISON: [facility], , XR LUMBAR SPINE 1V, 04/03/2021, 12:33. FINDINGS: Bones: 5 [id number] vertebrae are present. Patient is status post transpedicular fusion at L4-5 level with intervertebral spacer placement. Lumbar spine alignment is not significantly changed from prior study. Persistent grade 1 retrolisthesis of L1 on L2 and grade 1 anterolisthesis of L3 on L4 and L4 on L5 is again seen. No gross hardware loosening or failure is seen. No vertebral body compression fractures. No suspicious bony lesions. Soft tissues: Overlying bowel gas pattern is normal. No suspicious soft tissue calcifications. IMPRESSION: Stable lumbar spine alignment with stable spondylolisthesis at L1-2, L3-4 and L4-5 levels unchanged from prior study. No acute compression fracture. Degenerative disc disease throughout lumbar spine. No gross hardware loosening or failure. Dictated by: Manny Lux M.D. on 07/02/2021 at 12:54 Approved by: Manny Lux M.D. on 07/02/2021 at 12:56
== END ==
PROVIDERS: Family Provider Family Medicine; PCP Family Medicine; Referring Provider Neurological Surgery; Visit Provider Neurological Surgery
DX: M43.16 Spondylolisthesis, lumbar region (principal); M51.36 Other intervertebral disc degeneration, lumbar region; Z98.1 Arthrodesis status
CPT/HCPCS: 72020

== ENCOUNTER → 2021-07-03 16:14 | Outpatient (CLI) | payer MEDICARE, OTHER, SELFPAY ==
--- NOTE | 2021-07-03 | DI.MG.S_ITS ---
BILATERAL DIGITAL SCREENING MAMMOGRAM 3D/2D WITH CAD: 07/03/2021 CLINICAL: Routine screening. Comparison is made to exams dated: 06/15/2020 mammogram, 06/02/2019 mammogram, and 05/27/2018 mammogram - [facility]. The tissue of both breasts is heterogeneously dense. This may lower the sensitivity of mammography. Current study was also evaluated with a Computer Aided Detection (CAD) system. There is possible architectural distortion in the left breast anterior depth inferior region seen on the mediolateral oblique view only. No other significant masses, calcifications, or other findings are seen in either breast. IMPRESSION: INCOMPLETE: NEEDS ADDITIONAL IMAGING EVALUATION The possible architectural distortion in the left breast is indeterminate. Additional views with possible ultrasound are recommended. This exam was interpreted at Station ID: [id number]. NOTE: For mammograms, a report in lay terms will be sent to the patient. Approximately 15% of breast malignancies will not be visualized mammographically. In the management of a palpable breast mass, a negative mammogram must not discourage biopsy of a clinically suspicious lesion. Electronically Signed By: Gautam Shaw M.D., jr/diamond:07/04/2021 14:31:29 letter sent: Additional Imaging Needed ACR BI-RADS Category 0: Incomplete 3340F
== END ==
PROVIDERS: Family Provider Family Medicine; PCP Family Medicine; Referring Provider Family Medicine; Visit Provider Family Medicine
DX: Z12.31 Encounter for screening mammogram for malignant neoplasm of breast (principal)
CPT/HCPCS: 77063; 77067

== ENCOUNTER → 2021-07-29 16:48 | Outpatient (CLI) | payer MEDICARE, OTHER, SELFPAY ==
--- NOTE | 2021-07-29 16:51 | DI.MRI.S_ITS ---
PROCEDURE: MR LUMBAR SPINE WO CON INDICATIONS: SPINAL STENOSIS LUMBAR EGION WITH NEUROGENIC CLA TECHNIQUE: Noncontrast sagittal T1 spin echo and T2 fast echo, sagittal STIR, axial T1 and T2 fast spin echo through the lumbar spine. In cases with scoliosis, additional coronal T2 fast spin echo may be performed. COMPARISON: [facility], CR, XR LUMBAR SPINE 2-3V, 01/01/2021, 12:33. [facility], CR, XR LUMBAR SPINE 1V, 07/02/2021, 11:59. [facility], MR, MR THORACIC SPINE WO CON, 12/01/2019, 16:10. [facility], MR, MR LUMBAR SPINE WO CON, 11/03/2019, 12:22. FINDINGS: Image quality: Excellent. Alignment and Curvature: Compared to the previous MR, interval laminectomy at L3 and L4. Interval posterior lateral day and pedicle screw fixation at L4-L5. Mild degenerative anterolisthesis of L3 on L4 measuring 3 mm. Trace degenerative retrolisthesis of L2 on L3. Mild degenerative retrolisthesis of L1 on L2 measuring 4 mm. Bone Marrow: Marrow is of normal overall signal. No acute vertebral body compression fractures. Spinal Cord: Conus medullaris terminates at the L1-L2 level. Visualized cord demonstrates normal signal and size. Paraspinous Soft Tissues: No paravertebral masses. T12-L1: Minimal disc bulge. Facet hypertrophy. No canal stenosis or foraminal stenosis. L1-L2: Unchanged. 4 mm of degenerative retrolisthesis of L1 on L2. Facet hypertrophy. Mild canal stenosis. Moderate bilateral foraminal narrowing. L2-L3: Unchanged. Disc bulge. Facet and ligament hypertrophy. Mild canal stenosis. Mild right and moderate left foraminal narrowing. L3-L4: Interval posterior laminectomy. Resolution of canal stenosis. Moderate right and [id number] left foraminal narrowing. There is mild flattening deformity on the exiting right L3 nerve root. L4-L5: Interval posterior laminectomy and posterior lateral fusion. Significant decrease in anterolisthesis of L4 on L5, previously measuring approximately 11 mm and now trace. Resolution of canal stenosis. Significant improvement in foraminal narrowing, now moderate bilaterally. L5-S1: Disc bulge. Facet hypertrophy. Mild canal stenosis. No foraminal stenosis. IMPRESSION: 1. Excellent postoperative appearance, with resolution of canal stenosis at L3-L4 and L4-L5. There is significant improvement in alignment at L4-L5. There is also improvement in foraminal narrowing at that level. 2. There is mild canal stenosis at L1-L2, L2-L3, and L5-S1. Dictated by: Aramis Monsivais M.D. on 07/30/2021 at 8:02 Approved by: Aramis Monsivais M.D. on 07/30/2021 at 8:20
== END ==
PROVIDERS: Family Provider Family Medicine; PCP Family Medicine; Referring Provider Neurological Surgery; Visit Provider Neurological Surgery
DX: M48.062 Spinal stenosis, lumbar region with neurogenic claudication (principal); Z98.1 Arthrodesis status
CPT/HCPCS: 72148

== ENCOUNTER → 2021-08-20 13:02 | Outpatient (CLI) | payer MEDICARE, OTHER, SELFPAY ==
--- NOTE | 2021-08-20 | DI.MG.S_ITS ---
UNILATERAL LEFT DIGITAL DIAGNOSTIC MAMMOGRAM 3D/2D WITH ADDITIONAL VIEWS: 08/20/2021 CLINICAL: Additional evaluation requested from prior study. Comparison is made to exams dated: 07/03/2021 mammogram, 06/15/2020 mammogram, and 06/02/2019 mammogram - [facility]. The tissue of left breast is heterogeneously dense. This may lower the sensitivity of mammography. The possible architectural distortion in the left breast anterior depth inferior region seen on the mediolateral oblique view only is no longer seen and most likely is fibroglandular tissue. This is not seen in additional views. No other significant masses or calcifications are seen in the breast. IMPRESSION: BENIGN Previously questioned architectural distortion is no longer demonstrated and additional views do not confirm its presence. There is no mammographic evidence of malignancy. Annual screening mammogram recommended. This exam was interpreted at Station ID: [id number]. NOTE: For mammograms, a report in lay terms will be sent to the patient. Approximately 15% of breast malignancies will not be visualized mammographically. In the management of a palpable breast mass, a negative mammogram must not discourage biopsy of a clinically suspicious lesion. Electronically Signed By: Gautam Shaw M.D. jr/:08/21/2021 10:30:22 letter sent: Normal Exam ACR BI-RADS Category 2: Benign Finding(s) 3342F
== END ==
PROVIDERS: Family Provider Family Medicine; PCP Family Medicine; Referring Provider Family Medicine; Visit Provider Family Medicine
DX: R92.8 Other abnormal and inconclusive findings on diagnostic imaging of breast (principal)
CPT/HCPCS: 77065; G0279

== ENCOUNTER → 2021-09-29 15:10 | Outpatient (CLI) | payer MEDICARE, OTHER, SELFPAY | PROVIDERS: Family Provider Family Medicine; PCP Family Medicine; Visit Provider Student in an Organized Health Care Education/Training Program | DX: R30.0 Dysuria (principal); R35.0 Frequency of micturition | CPT/HCPCS: 87077; 87086; 87186 ==

== ENCOUNTER → 2021-10-08 11:47 | Outpatient (CLI) | payer MEDICARE, OTHER, SELFPAY ==
--- NOTE | 2021-10-08 11:54 | DI.RAD.S_ITS ---
PROCEDURE: XR LUMBAR SPINE 1V INDICATIONS: POST OP X-RAY TECHNIQUE: 3 views of the lumbar spine were acquired. COMPARISON: [facility], CR, XR LUMBAR SPINE 1V, 07/02/2021, 11:59. FINDINGS: Bones: Grade 1 L3-4 and L4-5 anterior listhesis and L1-2, L2-3 retrolisthesis. L4-5 discectomy and fusion with posterior day and screw instrumentation is unchanged. Sclerotic facet joints and disc space narrowing otherwise noted throughout the exam. Soft tissues: Overlying bowel gas pattern is normal. No suspicious soft tissue calcifications. IMPRESSION: 1. Stable L4-5 discectomy and fusion with posterior day and screw instrumentation. 2. Multilevel degenerative disc disease and arthropathy throughout the exam, stable Approved by: Ant Monsivais M.D. on 10/08/2021 at 12:07
--- NOTE | 2021-10-08 11:55 | DI.RAD.S_ITS ---
PROCEDURE: XR CERVICAL SPINE 1V INDICATIONS: LOW BACK PAIN TECHNIQUE: Single lateral view of the cervical spine acquired. COMPARISON: [facility], CR, XR CERVICAL SPINE 1V, 04/03/2021, 12:33. FINDINGS: Bones: C5-6 discectomy and fusion with anterior plate and screw hardware and interbody fusion cage all remain unchanged from the prior exam. Mild C4-5 disc space narrowing, and facet sclerosis present in the lower cervical spine. Normal bone mineralization and craniovertebral relationships noted. Soft tissues: No prevertebral soft tissue swelling. IMPRESSION: Stable C5-6 discectomy and fusion with anterior plate and screw hardware Approved by: Ant Monsivais M.D. on 10/08/2021 at 12:05
[2021-10-08 13:07] LABS: Cholesterol 190 mg/dL (140-199); HDL Cholesterol 63 mg/dL (40-60); LDL Cholesterol Calculated 109 mg/dL (<100); Triglycerides 90 mg/dL (35-150)
== END ==
PROVIDERS: Family Provider Family Medicine; PCP Family Medicine; Referring Provider Neurological Surgery; Visit Provider Neurological Surgery
DX: M47.22 Other spondylosis with radiculopathy, cervical region (principal); M51.36 Other intervertebral disc degeneration, lumbar region; M47.816 Spondylosis without myelopathy or radiculopathy, lumbar region; M54.50 Low back pain, unspecified; E78.5 Hyperlipidemia, unspecified; Z98.1 Arthrodesis status
CPT/HCPCS: 36415; 72020; 80061

== ENCOUNTER → 2022-07-02 09:53 | Outpatient (CLI) | payer MEDICARE, OTHER, SELFPAY ==
[2022-07-02 12:14] LABS: Cholesterol 171 mg/dL (140-199); HDL Cholesterol 70 mg/dL (40-60); LDL Cholesterol Calculated 84 mg/dL (<100); Triglycerides 86 mg/dL (35-150)
== END ==
PROVIDERS: Family Provider Family Medicine; PCP Family Medicine; Referring Provider Family Medicine; Visit Provider Family Medicine
DX: E78.5 Hyperlipidemia, unspecified (principal)
CPT/HCPCS: 36415; 80061

== ENCOUNTER → 2022-07-14 12:47 | Outpatient (CLI) | payer MEDICARE, OTHER, SELFPAY ==
--- NOTE | 2022-07-14 | DI.MG.S_ITS ---
BILATERAL DIGITAL SCREENING MAMMOGRAM 3D/2D WITH CAD: 07/14/2022 CLINICAL: Routine screening. Comparison is made to exams dated: 07/03/2021 mammogram, 06/15/2020 mammogram, 06/02/2019 mammogram, and 08/20/2021 mammogram - [facility]. Both breasts are heterogeneously dense, which may obscure small masses (category c / 51-75% glandular tissue). Current study was also evaluated with a Computer Aided Detection (CAD) system. No significant masses, calcifications, or other findings are seen in either breast. There has been no significant interval change. IMPRESSION: NEGATIVE There is no mammographic evidence of malignancy. A 1 year screening mammogram is recommended. Based on the Tyrer Cuzick model (a risk assessment model) the patient's lifetime risk is 7.6% and her 10 year risk is 5.2%. According to the ACR, ACS, and NCCN guidelines, an annual breast MRI exam along with mammogram is recommended if the patient's lifetime risk is 20% or greater. This exam was interpreted at Station ID: [id number]. NOTE: For mammograms, a report in lay terms will be sent to the patient. Approximately 15% of breast malignancies will not be visualized mammographically. In the management of a palpable breast mass, a negative mammogram must not discourage biopsy of a clinically suspicious lesion. Electronically Signed By: Gautam Shaw M.D., jr/diamond:07/14/2022 13:36:30 letter sent: Normal Exam ACR BI-RADS Category 1: Negative 3341F
== END ==
PROVIDERS: Family Provider Family Medicine; PCP Family Medicine; Referring Provider Family Medicine; Visit Provider Family Medicine
DX: Z12.31 Encounter for screening mammogram for malignant neoplasm of breast (principal)
CPT/HCPCS: 77063; 77067

== ENCOUNTER → 2022-10-07 15:04 | Outpatient (CLI) | payer MEDICARE, OTHER, SELFPAY ==
--- NOTE | 2022-10-07 15:06 | DI.RAD.S_ITS ---
PROCEDURE: XR SHOULDER LT MIN 2V INDICATIONS: shoulder pain TECHNIQUE: 3 views of the shoulder were acquired. COMPARISON: None. FINDINGS: Bones: Mild glenohumeral and acromioclavicular degenerative changes. No displaced fracture or dislocation. Soft tissues: No suspicious soft tissue calcifications. IMPRESSION: Mild shoulder degenerative changes. No acute radiographic abnormality. If there is high concern for further derangement, consider MRI evaluation. Dictated by: Kristofer De Jesus M.D. on 10/07/2022 at 16:24 Approved by: Kristofer De Jesus M.D. on 10/07/2022 at 16:24
--- NOTE | 2022-10-07 15:06 | DI.US.S_ITS ---
PROCEDURE: US SOFT TISSUE HEAD AND NECK INDICATIONS: BILATERAL SUPRACLAVICULAR LUMPS/SWELLING. BILATERAL SWELLING AT SUPERIOR NECK/SUBMANDIBULAR AREA. TECHNIQUE: Real-time scanning was performed of the neck region of interest, with image documentation. COMPARISON: None. FINDINGS: Patient indicated palpable abnormalities in the bilateral supraclavicular regions correspond to normal appearing blood vessels. No suspicious soft tissue mass. No significant abnormality is seen corresponding to palpable abnormalities in the submandibular region. Submandibular glands appear normal and symmetric. No significant large cervical lymphadenopathy. Atherosclerotic plaque is noted in the right common carotid artery. IMPRESSION: No suspicious soft tissue abnormality corresponding to patient indicated palpable areas of concern. If there is continued clinical concern, CT or MRI could be performed for further evaluation. Approved by: Ramsey Mcmahon M.D. on 10/07/2022 at 16:48
== END ==
PROVIDERS: Family Provider Family Medicine; PCP Family Medicine; Referring Provider Family Medicine; Visit Provider Family Medicine
DX: M19.90 Unspecified osteoarthritis, unspecified site (principal); R22.1 Localized swelling, mass and lump, neck
CPT/HCPCS: 73030; 76536

== ENCOUNTER 2022-10-15 13:20 | Outpatient (CLI) | payer MEDICARE, OTHER, SELFPAY ==
[2022-10-15] VITALS (8 sets, daily range): BP systolic 131–174; BP diastolic 56–75; PULSE 50–68; RESP 14–22; TEMP 36.7; O2SAT 97–100
--- NOTE | 2022-10-15 13:23 | DI.RAD.S_ITS ---
PROCEDURE: PAIN L/S TRANSFORAM INJECT DENIS COMPARISON: [facility], MR, MR LUMBAR SPINE WO CON, 07/29/2021, 16:57. [facility], CR, XR LUMBAR SPINE 1V, 10/08/2021, 11:48. INDICATIONS: SPONDYLOSIS FINDINGS: 6 intraoperative fluoroscopy images demonstrate needle placement at L3-L4. Postsurgical changes are noted with discectomy and posterior fusion at L4-L5. IMPRESSION: Fluoroscopy for needle placement. Dictated by: Freddy Barron M.D. on 10/16/2022 at 7:38 Approved by: Freddy Barron M.D. on 10/16/2022 at 7:39
[2022-10-15] MEDS: MIDAZOLAM 2 MG/2 ML VIAL IV (13:55)
[2022-10-15] MEDS: DEXAMETHASONE 10 MG/ML VIAL 20 MG INJ (14:01)
[2022-10-15] MEDS: BUPIVACAINE 0.25% (PF) VIAL 5 ML INJ (14:01)
[2022-10-15] MEDS: IOPAMIDOL 15 ML VIAL 3 ML INJ (14:02)
[2022-10-15] MEDS: BETAMETHASONE 30 MG/5 ML MDV 6 MG INJ (14:02)
--- NOTE | 2022-10-15 14:17 | PM.PROC.IR.1 ---
Date/Time/Diagnoses Date of procedure: 10/15/22 Time of procedure: 14:17 Pre-procedure diagnosis: 1. FORAMINAL STENOSIS WITH LE SYMPTOMS Post-procedure diagnosis: same Procedure Notes Procedure: 1. FLUOROSCOPICALLY GUIDED CONTRAST CONTROLLED TRANSFORAMINAL EPIDURAL STEROID INJECTION - BILATERAL L3/4 TFESI Indications: Farnaz is referred by Dr. Mckeon for treatment of Foraminal Stenosis with bilateral LE Symptoms Physician: Aubrey Mendenhall Total Fluoroscopy time (seconds): 17 Total sedation minutes: 16 Complications: none Procedure in detail & Post-procedure care: FINDINGS Foraminal Nerve Root Compression secondary to disc disease and facet hypertrophy DESCRIPTION OF PROCEDURE Following review of allergy and review of potential side effects and complications, including, but not necessarily limited to, infection, allergic reaction, local tissue breakdown, stroke, temporary or permanent nerve injury, paralysis, and possible , the patient indicated that the patient understood and agreed to proceed. An informed consent document was signed by the patient, witnessed by a nurse, and placed in the patient's chart. Additionally, other treatment options including medications, modalities, and physical therapy were reviewed with the patient. After review of previous anaesthesic history and IV conscious sedation the patient was deemed safe to proceed with today?s procedure with IV conscious sedation as ASA class II designation. Safety time-out was performed to confirm patient ID, procedure to be performed and site of procedure. IV sedation was accomplished with a combination of 2mg of Versed was administered by the RN after DO order, titrated to patient comfort during the course of the procedure while the patient remained responsive to all verbal commands In the prone position following sterile prep and drape of the lumbar region, the right L3/4 posterior neuroforamen was identified fluoroscopically. The skin was anesthetized via a 25-gauge 1.5-inch needle with 1% lidocaine solution. At this point, a 25-gauge 3.5-inch spinal needle was atraumatically introduced and advanced under fluoroscopic guidance through the posterior right L3/4 neuroforamen to approximately the anterior aspect of the canal. Depth was confirmed on lateral view. Following negative aspiration, injection of approximately 1.5cc of Isovue 200 under live fluoroscopy in the AP view confirmed excellent flow along the nerve root, into the epidural space without vascular or intrathecal uptake observed Radiological data, including multiple fluoroscopic views of the lumbosacral spine, reveal a spinal needle at the right L3/4 posterior neuroforamen. Subsequent views show flow of contrast material flowing superiorly and inferiorly along the nerve root confirming epidural flow. Subsequently, a test dose of 1.5cc of 1% lidocaine solution was administered and patient was observed for two minutes for signs or symptoms of complications, including abdominal pain, shortness of breath, bilateral upper or lower extremity weakness, nausea and vomiting, prior to steroid injection. At this point, a total of 3cc or 20mg of dexamethasone and 6mg betamethasone was injected without incident. Attention was then refocused to the left L3/4 level where the identical procedure was replicated. The procedure tolerated the procedure well without signs or symptoms of complications prior to transfer to the recovery area continued monitoring without incident. The patient was then transferred to the recovery area where they were observed for an appropriate time after the injection. The patient reported a VAS score of 7 prior to the procedure and a post-procedure VAS of 0. POST OP INSTRUCTIONS The patient was provided a Pain Log to continue to record their response to the target-specific procedure prior to follow-up visit with their referring physician. Additionally, specific post-injection care instructions and a contact number to our office were provided if concerns arise regarding possible complications associated with the procedure are suspected.
== END 2022-10-15 14:35 | disposition home or self-care (01) ==
PROVIDERS: Family Provider Family Medicine; PCP Family Medicine; Referring Provider Physical Medicine & Rehabilitation; Visit Provider Physical Medicine & Rehabilitation
DX: Z98.890 Other specified postprocedural states (principal); M51.16 Intervertebral disc disorders with radiculopathy, lumbar region
CPT/HCPCS: 64483; 99152; J0702; J1100; J2250; J3490

== ENCOUNTER → 2022-12-01 14:14 | Outpatient (CLI) | payer MEDICARE, OTHER, SELFPAY ==
[2022-12-02 17:13] LABS: Fecal Immunochemical Test Negative (Negative)
== END ==
PROVIDERS: Family Provider Family Medicine; PCP Family Medicine; Referring Provider Family Medicine; Visit Provider Family Medicine
DX: Z12.11 Encounter for screening for malignant neoplasm of colon (principal)
CPT/HCPCS: 82274

== ENCOUNTER → 2022-12-25 13:33 | Outpatient (CLI) | payer MEDICARE, OTHER, SELFPAY ==
--- NOTE | 2022-12-25 13:35 | DI.RAD.S_ITS ---
PROCEDURE: XR LUMBAR SPINE MIN 4V INDICATIONS: Low back pain L4 radiculopathy status post L4-5 fusion TECHNIQUE: 5 views of the lumbar spine were acquired, including bilateral oblique views. COMPARISON: [facility], CR, XR LUMBAR SPINE 2-3V, 01/01/2021, 12:33. [facility], CR, XR LUMBAR SPINE 1V, 10/08/2021, 11:48. [facility], CR, XR LUMBAR SPINE 1V, 07/02/2021, 11:59. FINDINGS: Bones: 5 nonrib-bearing vertebrae are present. Redemonstrated postsurgical changes at L4-L5 with rods, pedicle screws, and interbody spacer. Appearance is similar to before. Redemonstrated retrolisthesis L1 on L2, 7 mm. Suspect at least mild multilevel bony foraminal narrowing on oblique images. Soft tissues: Overlying bowel gas pattern is normal. No suspicious soft tissue calcifications. IMPRESSION: Postsurgical and degenerative changes of the lumbar spine. Dictated by: Ramsey Castillo M.D. on 12/25/2022 at 14:51 Approved by: Ramsey Castillo M.D. on 12/25/2022 at 14:56
== END ==
PROVIDERS: Family Provider Family Medicine; PCP Family Medicine; Referring Provider Physical Medicine & Rehabilitation; Visit Provider Physical Medicine & Rehabilitation
DX: Z98.890 Other specified postprocedural states; Z98.1 Arthrodesis status; M47.26 Other spondylosis with radiculopathy, lumbar region
CPT/HCPCS: 72110

== ENCOUNTER → 2023-01-11 13:01 | Outpatient (CLI) | payer MEDICARE, OTHER, SELFPAY ==
--- NOTE | 2023-01-11 | DI.RAD.S_ITS ---
PROCEDURE: XR CERVICAL SPINE 4V OR 5V INDICATIONS: Radiculopathy, lumbar region TECHNIQUE: Five views of the cervical spine were acquired. COMPARISON: [facility], , XR CERVICAL SPINE 1V, 10/08/2021, 11:48. FINDINGS: Bones: Anterior cervical fusion and disc spacer at the C5-6 level. Hardware appears intact. Trace anterolisthesis C2-3 and grade 1 anterolisthesis C3-4 as seen previously. Trace anterolisthesis C6-7 and C7-T1, also stable. There is appropriate range of motion in flexion and extension given fusion. There is reduction of listhesis in extension at C2-3, C3-4 and no change at the other levels. No change in degree of listhesis during flexion. Mild multilevel facet arthropathy. Soft tissues: Prevertebral soft tissues are normal in thickness. IMPRESSION: 1. Stable appearance at the operative level C5-6. 2. Multilevel mild anterolisthesis as described, most evident at C3-4. There is slight dynamic instability at C2-3 and C3-4 in extension. Dictated by: Khloe Yin M.D. on 01/11/2023 at 17:42 Approved by: Khloe Yin M.D. on 01/11/2023 at 17:46
== END ==
PROVIDERS: Family Provider Family Medicine; PCP Family Medicine; Referring Provider Neurological Surgery; Visit Provider Neurological Surgery
DX: M43.12 Spondylolisthesis, cervical region (principal); M47.812 Spondylosis without myelopathy or radiculopathy, cervical region; M54.16 Radiculopathy, lumbar region; Z98.1 Arthrodesis status
CPT/HCPCS: 72050

== ENCOUNTER → 2023-02-05 09:02 | Outpatient (CLI) | payer MEDICARE, OTHER, SELFPAY ==
[2023-02-05 10:54] LABS: Creatinine Urine Random 82.6 mg/dL
[2023-02-05 10:55] LABS: Erythrocyte Sedimentation Rate 10 MM/HR (0-20)
[2023-02-05 10:58] LABS: Alanine Aminotransferase 25 IU/L (<35); Albumin Globulin Ratio 1.6 (1.0-2.8); Alkaline Phosphatase 58 U/L (38-126); Aspartate Aminotransferase 24 IU/L (14-36); Bilirubin Total 0.6 mg/dL (0.2-1.3); Blood Urea Nitrogen 22 mg/dL (7-17); C-Reactive Protein Quant < 0.5 mg/dL (<1.0); Calcium 9.6 mg/dL (8.4-10.2); Carbon Dioxide 25 mmol/L (22-32); Chloride 108 mmol/L (98-107); Cholesterol 234 mg/dL (140-199); Estimated Glomerular Filt Rate > 60 mL/min (>60); Globulin 2.5 g/dL (1.7-4.1); Glucose 94 mg/dL (80-110); HDL Cholesterol 65 mg/dL (40-60); HEMOLYSIS < 15 (0-50); LDL Cholesterol Calculated 152 mg/dL (<100); Potassium 4.4 mmol/L (3.4-5.1); Sodium 140 mmol/L (137-145); Total Protein 6.5 g/dL (6.3-8.2); Triglycerides 87 mg/dL (35-150)
[2023-02-05 11:02] LABS: Microalbumin Urine Random < 0.6 mg/dL (0-1.6)
[2023-02-06 19:03] LABS: SS A Ro Sjogrens Antibody < 0.2 AI (0.0-0.9); SS B La Sjogrens Antibody < 0.2 AI (0.0-0.9)
== END ==
PROVIDERS: Family Provider Family Medicine; PCP Family Medicine; Referring Provider Family Medicine; Visit Provider Family Medicine
DX: I10 Essential (primary) hypertension (principal); H04.123 Dry eye syndrome of bilateral lacrimal glands
CPT/HCPCS: 36415; 80053; 80061; 82043; 82570; 85651; 86140; 86235

== ENCOUNTER → 2023-05-04 13:45 | Outpatient (CLI) | payer MEDICARE, OTHER, SELFPAY ==
[2023-05-07 20:20] LABS: ANA Screen, IFA Negative (.)
== END ==
PROVIDERS: Family Provider Family Medicine; PCP Family Medicine; Referring Provider Family Medicine; Visit Provider Family Medicine
DX: H04.123 Dry eye syndrome of bilateral lacrimal glands (principal)
CPT/HCPCS: 36415; 86038

== ENCOUNTER → 2023-07-21 12:51 | Outpatient (CLI) | payer MEDICARE, SELFPAY ==
--- NOTE | 2023-07-21 12:52 | DI.MG.S_ITS ---
BILATERAL DIGITAL SCREENING MAMMOGRAM 3D/2D WITH CAD: 07/21/2023 CLINICAL: Routine screening. Comparison is made to exams dated: 07/14/2022 mammogram, 08/20/2021 mammogram, 07/03/2021 mammogram, and 06/15/2020 mammogram - [facility]. Both breasts are heterogeneously dense, which may obscure small masses (category c / 51-75% glandular tissue). Current study was also evaluated with a Computer Aided Detection (CAD) system. No significant masses, calcifications, or other findings are seen in either breast. There has been no significant interval change. IMPRESSION: NEGATIVE There is no mammographic evidence of malignancy. A 1 year screening mammogram is recommended. Based on the Tyrer Cuzick model (a risk assessment model) the patient's lifetime risk is 7.2% and her 10 year risk is 5.4%. According to the ACR, ACS, and NCCN guidelines, an annual breast MRI exam along with mammogram is recommended if the patient's lifetime risk is 20% or greater. This exam was interpreted at Station ID: [id number]. NOTE: For mammograms, a report in lay terms will be sent to the patient. Approximately 15% of breast malignancies will not be visualized mammographically. In the management of a palpable breast mass, a negative mammogram must not discourage biopsy of a clinically suspicious lesion. Electronically Signed By: Dudley zheng/diamond:07/21/2023 13:20:54 letter sent: Normal Exam ACR BI-RADS Category 1: Negative 3341F
== END ==
PROVIDERS: Family Provider Family Medicine; PCP Family Medicine; Referring Provider Family Medicine; Visit Provider Family Medicine
DX: Z12.31 Encounter for screening mammogram for malignant neoplasm of breast (principal); R92.333 Mammographic heterogeneous density, bilateral breasts
CPT/HCPCS: 77063; 77067

== ENCOUNTER → 2023-11-10 10:38 | Outpatient (CLI) | payer MEDICARE, SELFPAY ==
[2023-11-10 11:35] LABS: Add Manual Diff / Slide Review NO; Basophils Absolute Auto 100 /uL (0-100); Basophils Percent Auto 1.4 % (0-2); Eosinophils Absolute Auto 100 /uL (0-450); Eosinophils Percent Auto 2.5 % (2-4); Hemoglobin 12.9 g/dL (12.0-16.0); Lymphocytes Absolute Auto 1400 /uL (1100-4500); Lymphocytes Percent Auto 33.2 % (25-40); Mean Corpuscular HGB Conc 33.2 % (30-36); Mean Corpuscular Hemoglobin 29.4 PG (26-34); Mean Corpuscular Volume 88.6 fL (80-100); Monocytes Absolute Auto 300 /uL (0-900); Monocytes Percent Auto 8.4 % (3-14); Neutrophils Absolute Auto 2300 /uL (1500-7000); Neutrophils Percent Auto 54.5 % (50-75); Platelet Count 199 X10^3/uL (150-400); Red Cell Distribution Width 13.4 % (11.6-14.8); White Blood Cell Count 4.1 X10^3/uL (4.5-11.0)
[2023-11-10 12:15] LABS: Cholesterol 158 mg/dL (140-199); HDL Cholesterol 76 mg/dL (40-60); LDL Cholesterol Calculated 70 mg/dL (<100); Triglycerides 58 mg/dL (35-150)
[2023-11-12 18:07] LABS: ANA Screen, IFA Negative (.)
== END ==
PROVIDERS: Family Provider Family Medicine; PCP Family Medicine; Referring Provider Family Medicine; Visit Provider Family Medicine
DX: M19.91 Primary osteoarthritis, unspecified site (principal); M06.9 Rheumatoid arthritis, unspecified; E78.5 Hyperlipidemia, unspecified; D64.9 Anemia, unspecified
CPT/HCPCS: 36415; 80061; 85025; 86038

== ENCOUNTER → 2024-03-22 12:21 | Outpatient (CLI) | payer MEDICARE, SELFPAY ==
--- NOTE | 2024-03-22 12:22 | DI.RAD.S_ITS ---
PROCEDURE: XR CHEST 2V INDICATIONS: cough /fatigue x 4 wks, COVID 2 months ago TECHNIQUE: 2 views of the chest were acquired. COMPARISON: [facility], CR, XR CHEST 1V, 02/01/2019, 11:05. FINDINGS: Surgical changes and devices: Partially seen cervical fusion hardware. Lungs and pleura: No dense airspace disease or pleural effusions. Mediastinum: Normal heart size Bones and chest wall: Degenerative changes IMPRESSION: No acute radiographic abnormality. Dictated by: Kristofer De Jesus M.D. on 03/22/2024 at 12:50 Approved by: Kristofer De Jesus M.D. on 03/22/2024 at 12:51
== END ==
PROVIDERS: Family Provider Family Medicine; PCP Family Medicine; Referring Provider Student in an Organized Health Care Education/Training Program; Visit Provider Student in an Organized Health Care Education/Training Program
DX: R05.8 Other specified cough (principal); Z98.1 Arthrodesis status
CPT/HCPCS: 71046

== ENCOUNTER → 2024-05-18 12:20 | Outpatient (CLI) | payer MEDICARE, SELFPAY ==
--- NOTE | 2024-05-18 | DI.RAD.S_ITS ---
PROCEDURE: XR LUMBAR SPINE MIN 4V INDICATIONS: PAIN TECHNIQUE: 5 views of the lumbar spine acquired, including flexion and extension views. COMPARISON: [facility], MR, MR LUMBAR SPINE WO CON, 05/18/2024, 12:29. [facility], CR, XR LUMBAR SPINE MIN 4V, 12/25/2022, 13:37. [facility], CR, XR LUMBAR SPINE 1V, 10/08/2021, 11:48. FINDINGS: Bones: 5 nonrib-bearing vertebrae are present. Posterior and interbody surgical fusion of L4-5, without hardware complication. Severe disc height loss at L1-2, moderate disc height loss at remaining levels. Diffuse facet arthrosis. No vertebral body compression fractures. No suspicious bony lesions. Soft tissues: Overlying bowel gas pattern is normal. No suspicious soft tissue calcifications. Flexion/extension: 5 mm anterolisthesis of L4 on L5, stable with flexion and extension. 4 mm anterolisthesis of L3 on L4 and 6 mm retrolisthesis of L1 on L2, stable with flexion and extension.. IMPRESSION: No dynamic instability of listhesis at L1-2, L3-4, L4-5. Moderate to severe, multilevel degenerative disc disease and facet arthrosis, better characterized on comparison MRI. Dictated by: Markus Diop M.D. on 05/18/2024 at 15:28 Approved by: Markus Diop M.D. on 05/18/2024 at 15:34
--- NOTE | 2024-05-18 | DI.MRI.S_ITS ---
PROCEDURE: MR CERVICAL SPINE WO CON INDICATIONS: Spinal Stenosis TECHNIQUE: Noncontrast sagittal T1 spin echo and T2 fast spin echo, sagittal STIR, foraminal oblique sagittal T2 fast spin echo, and axial gradient echo or T2 fast spin echo through the cervical spine. COMPARISON: [facility], MR, MR CERVICAL SPINE WO CON, 12/01/2019, 15:46. FINDINGS: Image quality: Excellent. Alignment and Curvature: Straightening of the normal cervical lordosis. Mild anterolisthesis of C2 on C3, C3 on C4 and C4 on C5. Bone Marrow: Status post C5-C6 ACDF. Marrow demonstrates normal overall signal. Spinal Cord: Visualized spinal cord has normal size and signal. No cerebellar tonsillar herniation. Paraspinous Soft Tissues: No paravertebral masses. Prevertebral soft tissues are normal in thickness. C2-C3: Disc desiccation. No central canal stenosis. Facet uncovertebral arthropathy. Mild bilateral neural foraminal stenosis. C3-C4: Disc desiccation and mild posterior disc osteophyte complex. Facet uncovertebral arthropathy. Mild central canal stenosis. Moderate to severe right and moderate left neural foraminal stenosis. C4-C5: Disc desiccation and mild posterior disc osteophyte complex. Mild central canal stenosis. Facet and uncovertebral arthropathy. Moderate left and mild right neural foraminal stenosis. C5-C6: Postoperative changes. Improvement in now mild central canal stenosis. Facet and uncovertebral arthropathy. Moderate bilateral neural foraminal stenosis is improved. C6-C7: Disc desiccation and posterior disc osteophyte complex. Mild to moderate central canal stenosis is stable. Facet and uncovertebral arthropathy. Stable moderate to severe left and moderate right neural foraminal stenosis. C7-T1: Disc desiccation. Mild posterior disc osteophyte complex. No significant central canal or neural foraminal stenosis. IMPRESSION: 1. Multilevel degenerative changes of the cervical spine status post C5-C6 ACDF. Degenerative changes are improved at C5-C6. 2. Otherwise, degenerative changes are similar in appearance compared to prior exam, as described above. Dictated by: Baldo Beth M.D. on 05/18/2024 at 16:02 Approved by: Baldo Beth M.D. on 05/18/2024 at 16:08
--- NOTE | 2024-05-18 | DI.MRI.S_ITS ---
PROCEDURE: MR LUMBAR SPINE WO CON INDICATIONS: Spinal Stenosis TECHNIQUE: Noncontrast sagittal T1 spin echo and T2 fast echo, sagittal STIR, and T2 fast spin echo through the lumbar spine. In cases with scoliosis, additional coronal T2 fast spin echo may be performed. COMPARISON: [facility], MR, MR LUMBAR SPINE WO CON, 07/29/2021, 16:57. FINDINGS: Image quality: Excellent. Alignment and Curvature: Grade 1 retrolisthesis of L1 on L2 and L2 on L3. Grade 1 anterolisthesis of L3 on L4 and L4 on L5. Bone Marrow: L4-5 posterior spinal fixation and discectomy. Mild degenerative endplate changes. Marrow is of normal overall signal. No acute vertebral body compression fractures. Spinal Cord: Conus medullaris terminates at the L1-L2 level. Visualized cord demonstrates normal signal and size. Paraspinous Soft Tissues: No paravertebral masses. T12-L1: No central canal or neural foraminal stenosis. L1-L2: Disc desiccation and moderate height loss. Posterior disc bulge, asymmetric to the right. Facet arthropathy and thickening of ligamentum flavum. Mild central canal stenosis. Moderate bilateral neural foraminal stenosis. L2-L3: Disc desiccation and moderate disc height loss. Mild disc bulge. Facet arthropathy and thickening of ligamentum flavum. Mild central canal stenosis. Mild right and moderate left neural foraminal stenosis is stable. L3-L4: Postoperative changes. No central canal stenosis. At least moderate right neural foraminal stenosis. Mild to moderate left neural foraminal stenosis. Flattening of the exiting right L3 nerve root. L4-L5: Disc desiccation and mild height loss. Postoperative changes. No central canal stenosis. Moderate bilateral neural foraminal stenosis is stable. L5-S1: Disc desiccation and mild disc bulge. Facet arthropathy. No central canal or neural foraminal stenosis. IMPRESSION: 1. Multilevel degenerative changes of the lumbar spine status post L4-5 posterior spinal fixation, stable in appearance compared to prior exam. 2. Mild central canal stenosis at L1-L2 and L2-L3. Otherwise, central canal is patent. 3. Multilevel neural foraminal stenosis up to moderate. Dictated by: Baldo Beth M.D. on 05/18/2024 at 16:09 Approved by: Baldo Beth M.D. on 05/18/2024 at 16:13
--- NOTE | 2024-05-18 | DI.RAD.S_ITS ---
PROCEDURE: XR CERVICAL SPINE 4V OR 5V INDICATIONS: PAIN TECHNIQUE: 5 views of the cervical spine were acquired. COMPARISON: [facility], CR, XR CERVICAL SPINE 4V OR 5V, 01/11/2023, 13:20. [facility], CR, XR CERVICAL SPINE 1V, 10/08/2021, 11:48. FINDINGS: Bones: No fractures or dislocations to the T1 level. No suspicious bony lesions. There is normal range of motion between flexion and extension, with preserved 2 mm anterolisthesis of C6 on C7 alignment. ACDF of C5-6. Diffuse facet arthrosis, left greater than right. Mild disc height loss all levels. Soft tissues: Prevertebral soft tissues are normal in thickness. IMPRESSION: 2 mm anterolisthesis of C6 on C7, stable with flexion and extension. Mild to moderate, multilevel degenerative disc disease and diffuse facet arthrosis. ACDF of C5-6, without hardware complication. Dictated by: Markus Diop M.D. on 05/18/2024 at 15:26 Approved by: Markus Diop M.D. on 05/18/2024 at 15:27
--- NOTE | 2024-05-18 | DI.RAD.S_ITS ---
PROCEDURE: XR PELVIS 1-2V INDICATIONS: PAIN TECHNIQUE: 1 view(s) of the pelvis acquired. COMPARISON: [facility], CR, XR SACRUM COCCYX MIN 2V, 05/18/2024, 13:05. FINDINGS: Bones: No fractures or dislocations. No suspicious bony lesions. Degenerative changes at the sacroiliac joints. Soft tissues: Visualized bowel gas pattern is normal. No suspicious soft tissue calcifications. IMPRESSION: Degenerative sacroiliitis. Dictated by: Markus Diop M.D. on 05/18/2024 at 15:35 Approved by: Markus Diop M.D. on 05/18/2024 at 15:35
--- NOTE | 2024-05-18 | DI.RAD.S_ITS ---
PROCEDURE: XR SACRUM COCCYX MIN 2V INDICATIONS: PAIN TECHNIQUE: 3 views of the sacrum and coccyx acquired. COMPARISON: None. FINDINGS: Bones: No fractures or dislocations. No suspicious bony lesions. Soft tissues: Visualized bowel gas pattern is normal. No suspicious soft tissue densities. IMPRESSION: No acute abnormality. Dictated by: Markus Diop M.D. on 05/18/2024 at 15:34 Approved by: Markus Diop M.D. on 05/18/2024 at 15:35
== END ==
PROVIDERS: Family Provider Family Medicine; PCP Family Medicine; Referring Provider Neurological Surgery; Visit Provider Neurological Surgery
DX: M48.02 Spinal stenosis, cervical region (principal); M47.812 Spondylosis without myelopathy or radiculopathy, cervical region; M43.12 Spondylolisthesis, cervical region; M48.062 Spinal stenosis, lumbar region with neurogenic claudication; M47.816 Spondylosis without myelopathy or radiculopathy, lumbar region; M47.817 Spondylosis without myelopathy or radiculopathy, lumbosacral region; M51.369 Other intervertebral disc degeneration, lumbar region without mention of lumbar back pain or lower extremity pain; M46.1 Sacroiliitis, not elsewhere classified; M53.88 Other specified dorsopathies, sacral and sacrococcygeal region; Z98.1 Arthrodesis status
CPT/HCPCS: 72050; 72110; 72141; 72148; 72170; 72220

== ENCOUNTER → 2024-05-27 10:38 | Outpatient (CLI) | payer MEDICARE, SELFPAY ==
[2024-05-27 11:54] LABS: Alanine Aminotransferase 25 IU/L (<35); Albumin 4.3 g/dL (3.5-5.0); Albumin Globulin Ratio 1.6 (1.0-2.8); Alkaline Phosphatase 62 U/L (38-126); Aspartate Aminotransferase 27 IU/L (14-36); BUN Creatinine Ratio 27.3 (6-22); Bilirubin Total 1.1 mg/dL (0.2-1.3); Blood Urea Nitrogen 24 mg/dL (7-17); Calcium 9.6 mg/dL (8.4-10.2); Carbon Dioxide 23 mmol/L (22-32); Chloride 105 mmol/L (98-107); Cholesterol 263 mg/dL (140-199); Estimated Glomerular Filt Rate > 60 mL/min (>60); Globulin 2.7 g/dL (1.7-4.1); Glucose 97 mg/dL (80-110); HDL Cholesterol 80 mg/dL (40-60); HEMOLYSIS < 15 (0-50); LDL Cholesterol Calculated 167 mg/dL (<100); Potassium 4.7 mmol/L (3.4-5.1); Sodium 133 mmol/L (137-145); Triglycerides 78 mg/dL (35-150)
[2024-05-27 12:39] LABS: Hemoglobin A1C% w Est Avg Glu 5.6 % (4.0-6.0)
== END ==
PROVIDERS: Family Provider Family Medicine; PCP Family Medicine; Referring Provider Family Medicine; Visit Provider Family Medicine
DX: E78.5 Hyperlipidemia, unspecified (principal); Z83.3 Family history of diabetes mellitus
CPT/HCPCS: 36415; 80053; 80061; 83036

== ENCOUNTER → 2024-08-31 12:51 | Outpatient (CLI) | payer MEDICARE, SELFPAY ==
--- NOTE | 2024-08-31 12:52 | DI.MG.S_ITS ---
MM screening mammo BI: 08/31/2024. BI-RADS: 2 CLINICAL: 74-year old female for bilateral screening mammogram. Tyrer-Cuzick lifetime risk of 5.7%. No personal or first-degree family history of breast cancer. PRIOR EXAMS 07/21/2023, 07/14/2022, 08/20/2021, 07/03/2021, 06/15/2020, 06/02/2019, 05/27/2018, 03/02/2017, 12/19/2015, 06/20/2015, 06/14/2015. MAMMOGRAPHY TECHNIQUE: 2D and 3D (tomosynthesis) digital mammographic views obtained, with additional images as needed for full coverage. Current study was also evaluated with a Computer Aided Detection (CAD) system. DENSITY C. The breasts are heterogeneously dense, which may obscure small masses. MAMMOGRAPHY FINDINGS Bilateral: Benign-appearing calcifications noted. There are no suspicious masses, calcifications, or other findings in the breast. No significant change from comparison. IMPRESSION: * No evidence of malignancy with benign findings. RECOMMENDATIONS Bilateral * Annual screening mammography. OVERALL ASSESSMENT CATEGORY BI-RADS-2: Benign. The [employer] recommends annual screening mammography beginning at age 40 for women with average risk of breast cancer. ELECTRONICALLY SIGNED: Parul Rinaldi M.D. on 09/01/2024 at 09:54:04 AM PT Interpreting Station ID: [id number]
== END ==
LOC: MAMMO 12:51
PROVIDERS: Family Provider Family Medicine; PCP Family Medicine; Referring Provider Family Medicine; Visit Provider Family Medicine
DX: Z12.31 Encounter for screening mammogram for malignant neoplasm of breast (principal); R92.333 Mammographic heterogeneous density, bilateral breasts; R92.1 Mammographic calcification found on diagnostic imaging of breast
CPT/HCPCS: 77063; 77067

== ENCOUNTER → 2025-01-24 09:06 | Outpatient (CLI) | payer MEDICARE, SELFPAY ==
[2025-01-24 10:13] LABS: Add Manual Diff / Slide Review NO; Hematocrit 41.5 % (36-46); Hemoglobin 13.8 g/dL (12.0-16.0); Lymphocytes Absolute Auto 1600 /uL (1100-4500); Mean Corpuscular HGB Conc 33.3 % (30-36); Mean Corpuscular Hemoglobin 30.0 PG (26-34); Mean Corpuscular Volume 90.1 fL (80-100); Platelet Count 192 X10^3/uL (150-400)
[2025-01-24 10:23] LABS: Alanine Aminotransferase 24 IU/L (<35); Albumin 4.6 g/dL (3.5-5.0); Albumin Globulin Ratio 1.8 (1.0-2.8); Alkaline Phosphatase 60 U/L (38-126); Blood Urea Nitrogen 31 mg/dL (7-17); Calcium 9.7 mg/dL (8.4-10.2); Carbon Dioxide 26 mmol/L (22-32); Chloride 104 mmol/L (98-107); Cholesterol 216 mg/dL (140-199); Creatine Kinase 89 U/L (30-135); Estimated Glomerular Filt Rate > 60 mL/min (>60); Globulin 2.6 g/dL (1.7-4.1); Glucose 98 mg/dL (70-99); HDL Cholesterol 76 mg/dL (40-60); HEMOLYSIS < 15 (0-50); Potassium 4.6 mmol/L (3.4-5.1); Sodium 138 mmol/L (137-145); Total Protein 7.2 g/dL (6.3-8.2); Triglycerides 130 mg/dL (35-150)
[2025-01-24 10:39] LABS: Vitamin D 25 Hydroxy (D3) 68.9 ng/mL (30.0-100.0)
[2025-01-24 10:55] LABS: TSH w/ Reflex to FT4 1.82 uIU/mL (0.47-4.68)
[2025-01-24 11:14] LABS: Vitamin B12 > 1000 pg/mL (239-931)
== END ==
PROVIDERS: Family Provider Family Medicine; PCP Family Medicine; Referring Provider Family Medicine; Visit Provider Family Medicine
DX: E78.5 Hyperlipidemia, unspecified (principal); M19.91 Primary osteoarthritis, unspecified site; L30.9 Dermatitis, unspecified; R41.89 Other symptoms and signs involving cognitive functions and awareness; R53.83 Other fatigue; R51.9 Headache, unspecified
CPT/HCPCS: 36415; 80053; 80061; 82306; 82550; 82607; 84443; 85025

== ENCOUNTER → 2025-02-02 09:26 | Outpatient (CLI) | payer MEDICARE, SELFPAY ==
[2025-02-02 10:20] LABS: Influenza A - CEPHEID Flu A NEGATIVE (NEGATIVE); Influenza B - CEPHEID Flu B NEGATIVE (NEGATIVE)
[2025-02-02 10:35] LABS: COVID-19 CEPHEID 4-PLEX PCR Negative (Negative)
== END ==
LOC: LAB 09:26
PROVIDERS: PCP Family Medicine; Visit Provider Family Medicine
DX: R05.9 Cough, unspecified (principal)
CPT/HCPCS: 87637

== ENCOUNTER → 2025-02-07 09:28 | Outpatient (CLI) | payer MEDICARE, SELFPAY ==
--- NOTE | 2025-02-07 09:29 | DI.US.S_ITS ---
PROCEDURE: US CAROTID DOPPLER BI INDICATIONS: syncope TECHNIQUE: Color and pulse Doppler interrogation was performed of both carotid systems, with image documentation and velocity measurements. COMPARISON: None. FINDINGS: Stenosis calculations are based on SRU (Society of Radiologists in Ultrasound) criteria. Right side: Common carotid artery peak systolic velocity: 64 cm/sec. Internal carotid artery peak systolic velocity: 114 cm/sec. Internal carotid artery end diastolic velocity: 25 cm/sec. External carotid artery peak systolic velocity: 97 cm/sec. ICA/CCA peak systolic ratio: 1.8 . Toney scale imaging description: Trace calcified plaque Percent internal carotid artery stenosis: Less than 50 percent . Vertebral artery: Flow direction is antegrade. Left side: Common carotid artery peak systolic velocity: 87 cm/sec. Internal carotid artery peak systolic velocity: 98 cm/sec. Internal carotid artery end diastolic velocity: 30 cm/sec. External carotid artery peak systolic velocity: 131 cm/sec. ICA/CCA peak systolic ratio: 1.1 . Toney scale imaging description: Soft plaque at the carotid bifurcation. Percent internal carotid artery stenosis: Less than 50 percent . Vertebral artery: Flow direction is antegrade. IMPRESSION: 1. In the right carotid artery, there is less than 50 percent stenosis based on peak systolic velocity criteria. 2. In the left carotid artery, there is less than 50 percent stenosis based on peak systolic velocity criteria. 3. Antegrade vertebral arteries. Dictated by: Itz Dunn M.D. on 02/07/2025 at 13:28 Approved by: Itz Dunn M.D. on 02/07/2025 at 13:30
== END ==
PROVIDERS: PCP Family Medicine; Referring Provider Family Medicine; Visit Provider Family Medicine
DX: R55 Syncope and collapse (principal); I65.23 Occlusion and stenosis of bilateral carotid arteries
CPT/HCPCS: 93880

== ENCOUNTER → 2025-02-12 13:42 | Outpatient (CLI) | payer MEDICARE, SELFPAY | LOC: CAR 13:42 | PROVIDERS: Family Provider Family Medicine; PCP Family Medicine; Referring Provider Family Medicine; Visit Provider Family Medicine | DX: R00.2 Palpitations (principal) | CPT/HCPCS: 93246 ==

== ENCOUNTER → 2025-03-29 13:56 | Outpatient (CLI) | payer MEDICARE, SELFPAY ==
--- NOTE | 2025-03-29 13:57 | DI.ECHO.S_ITS ---
[place] [facility] : : [id number] : [place] [address] : : [id number] : : Phone: [phone] Echocardiogram Report + + :Name: JOLENE OG Study Date: 03/29/2025 Height: 68 in : :[facility] ReadingLocation: Weight: 147 lb : : Gender: Female BSA: 1.8 m2 : :: 1950 Age: 74 yrs BP: 162/74 mmHg: :Reason For Study: DYSPNEA ON EXERTION : :Ordering Physician: ALEXEI, : :ALEX Performed By: Gautam Peña : :Referring: ALEX HOLM : + + Interpretation Summary 1) Normal left ventricular thickness and size with low normal systolic function (EF 50-55%). 2) Normal right ventricular size and function. 3) The left atrium is severely dilated 4) No significant valvular abnormalities. 5) No prior Echo available for comparison. Procedure: A two-dimensional transthoracic echocardiogram with color flow and Doppler was performed. The study quality was technically good. There is no prior echocardiogram noted for this patient. The patient was in normal sinus rhythm during the exam. Left Ventricle: The left ventricle is normal in size. There is normal left ventricular wall thickness. There is no ventricular septal defect visualized. The ejection fraction is estimated to be 50-55%. There are no focal wall motion abnormalities. Diastolic parameters suggest probable normal left ventricular diastolic function and normal filling pressures. Right Ventricle: The right ventricle is normal in size and function. Atria: The left atrium is severely dilated. The right atrium is mild to moderately dilated. There is no Doppler evidence for an interatrial shunt. Mitral Valve: There is mild mitral annular calcification. The mitral valve leaflets are mildly calcified. There is mild mitral regurgitation. Aortic Valve: The aortic valve is trileaflet. The aortic valve opens well. There is no aortic valve stenosis. No aortic regurgitation is present. Tricuspid Valve: The tricuspid valve leaflets are thin and pliable. There is mild tricuspid regurgitation. The right ventricular systolic pressure is estimated to be at least 38 mmHg based on an estimated right atrial pressure of 3 mm Hg. Pulmonic Valve: The pulmonic valve is not well seen, but is grossly normal. There is mild pulmonic regurgitation. Great Vessels: The aortic root is normal size. The dimensions of the ascending aorta are normal. The pulmonary artery is not well visualized, but is probably normal size. The IVC is of normal diameter and collapses greater than 50% with a sniff. This suggests a low right atrial pressure of 3 mm Hg. Pericardium/ Pleura There is no pericardial effusion. There is no pleural effusion. MMode/2D Measurements & Calculations LVIDd: 4.6 cm LVOT diam: 1.9 cm LVIDs: 3.2 cm Ao root diam: 3.3 cm FS: 29.1 % asc Aorta Diam: 3.0 cm EPSS: 0.58 cm IVSd: 0.87 cm LVPWd: 0.87 cm LV aleman. diameter/BSA (cm/m^2): 2.5 LV sys. diameter/BSA (cm/m^2): 1.8 LA A2 area: 30.1 cm2 RA long axis: 6.1 cm LA A4 area: 27.9 cm2 RA area: 20.9 cm2 LA length (vol): 6.5 cm RA vol: 61.1 ml LA vol: 109.8 ml RA : 34.1 ml/m2 LA vol index: 61.3 ml/m2 IVC diam: 1.8 cm RVD1 (basal): 3.7 cm RVD2 (mid): 2.9 cm TAPSE: 2.3 cm Doppler Measurements & Calculations Ao V2 max: 131.0 cm/sec LVOT Max Vladimir: 115.4 cm/sec Ao V2 mean: 96.6 cm/sec LV V1 max P.3 mmHg Ao max P.9 mmHg LV V1 VTI: 28.6 cm Ao mean P.0 mmHg MELANIE(I,D): 2.5 cm2 Ao V2 VTI: 32.4 cm MELANIE(V,D): 2.5 cm2 sev ratio: 0.88 MELANIE indexed to BSA (cm^2/m^2): 1.4 MV E max vladimir: 76.7 cm/sec TR max vladimir: 297.3 cm/sec MV A max vladimir: 59.9 cm/sec TR max P.4 mmHg MV E/A: 1.3 PA V2 max: 81.1 cm/sec Med Peak E' Vladimir: 6.1 cm/sec PA V2 mean: 56.6 cm/sec E/E' med: 12.6 PA mean P.4 mmHg Lat Peak E' Vladimir: 11.1 cm/sec PA pr(Accel): 36.2 mmHg E/E' lat: 6.9 E/e' average: 9.8 MV dec time: 0.17 sec SVLVOT): 82.0 ml Reading Physician:03:53 PM
--- NOTE | 2025-03-29 13:58 | DI.NM.S_ITS ---
PROCEDURE: NM TONY PERF SPECT REST & STR Rest and exercise myocardial perfusion SPECT with gated imaging and ejection fraction RADIOPHARMACEUTICAL: 27.5 mCi Tc-99m sestamibi IV at rest and 25.4 mCi Tc-99m sestamibi IV at peak exercise. A 2 day-protocol was performed. INDICATIONS: BABCOCK/PVC PQRS ATTESTATIONS: Measure 322 - Is this imaging test primarily performed on a low-risk surgery patient for preoperative evaluation within 30 days preceding their low-risk non-cardiac surgery? Low-risk surgery is defined as cardiac or myocardial infarction less than 1%, including (but not limited to) endoscopic procedures, superficial procedures, cataract surgery, and excisional breast surgery: Answer: No Measure 323 - Is this imaging test performed primarily for the monitoring of an asymptomatic patient who had percutaneous coronary intervention on the visit date or within 2 years of the visit date? Answer: No Measure 324 - Is this imaging test performed primarily for the initial detection and risk assessment on an asymptomatic, low coronary heart disease patient? Low CHD risk definition = clinicians should consider the maximum number of available patient factors used to estimate risk based on [place] (ATP III criteria), typically age, gender, diabetes, smoking status, and use of blood pressure medication, and integrate age appropriate estimates for missing elements, such as LDL or standard blood pressure. Answer: No TECHNIQUE: Radiopharmaceutical was injected at peak stress test, and also at rest. SPECT images were obtained. SPECT myocardial perfusion images were displayed in short axis, horizontal long axis, and vertical long axis views. Gated images were reviewed using [employer] software. COMPARISON: None. CARDIAC STRESS: A standard Eliseo treadmill exercise tolerance test was performed by the patient under the supervision of an attending staff. The patient exercised for 6 minutes and 17 seconds; functional aerobic impairment (JUS) is -15%. Hemodynamic data: There is normal blood pressure and heart rate response to exercise stress. Patient achieved 93% of maximum predicted heart rate at peak exercise. Symptoms: Patient denied chest pain during exercise. EKG: No diagnostic EKG changes of ischemia; occasional PVCs noted during the early stress phase but resolved as exercise continued. Occasional PVCs noted in early recovery. No ventricular arrhythmias present.. FINDINGS: Raw data: There is good myocardial labeling by radiotracer. No significant motion artifacts. [id number]-[id number] ratio is 0.20 (normal is less than 0.38 for sestamibi tracer, and less than 0.50 for thallium tracer). Left ventricle function: Gated images demonstrate normal left ventricle wall thickening. No segmental wall motion abnormality. No transient ischemic dilation; TID is 0.86 (normal less than 1.3). The left ventricle resting end-diastolic volume is 123 mL. Left ventricle stress ejection fraction is 65%; normal values are above 45%. Myocardial perfusion: No perfusion defects were noted in the rest images. Increase gut uptake noted. Stress images had no perfusion defects. No prone images obtained. IMPRESSION: 1. Negative exercise myocardial perfusion scan for ischemia and infarction. 2. Good exercise tolerance. Dictated by: Steven Lux M.D. on 03/30/2025 at 16:33 Approved by: Steven Lux M.D. on 03/30/2025 at 16:36
== END ==
LOC: ECHO 13:57
PROVIDERS: PCP Family Medicine; Referring Provider Family Medicine; Visit Provider Internal Medicine Cardiovascular Disease
DX: I08.1 Rheumatic disorders of both mitral and tricuspid valves (principal); R06.09 Other forms of dyspnea; I49.3 Ventricular premature depolarization
CPT/HCPCS: 78452; 93017; 93306; A9502

== ENCOUNTER → 2025-04-03 09:28 | Outpatient (CLI) | payer MEDICARE, SELFPAY ==
[2025-04-03 10:26] LABS: Cholesterol 236 mg/dL (140-199); HDL Cholesterol 62 mg/dL (40-60); Triglycerides 122 mg/dL (35-150)
== END ==
PROVIDERS: PCP Family Medicine; Referring Provider Family Medicine; Visit Provider Internal Medicine Cardiovascular Disease
DX: E78.5 Hyperlipidemia, unspecified (principal)
CPT/HCPCS: 36415; 80061